=== PATIENT | male | born 1945 | race Caucasian/White ===

== ENCOUNTER → 2016-10-05 | Outpatient (CLI) | payer MEDICARE, OTHER ==
[2016-10-05 08:59] LABS: ANION GAP 13 (5-19); BLOOD UREA NITROGEN 16 mg/dL (7-20); CALCIUM 9.8 mg/dL (8.4-10.2); CARBON DIOXIDE 24 mmol/L (22-30); CHLORIDE 101 mmol/L (98-107); CREATININE RESULT 1.01 mg/dL (0.52-1.25); GLUCOSE 232 mg/dL (75-110); POTASSIUM 4.7 mmol/L (3.6-5.0)
== END ==
LOC: OD 07:19
PROVIDERS: ATTEND Internal Medicine Nephrology
DX: I12.9 Hypertensive chronic kidney disease with stage 1 through stage 4 chronic kidney disease, or unspecified chronic kidney disease (principal); N18.3 Chronic kidney disease, stage 3 (moderate); E87.5 Hyperkalemia; E11.9 Type 2 diabetes mellitus without complications
CPT/HCPCS: 36415; 80048

== ENCOUNTER 2016-11-07 12:08 | Emergency (ER) | payer OTHER, MEDICARE ==
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
[2016-11-07 14:00] VITALS: BP 145/79
== END 2016-11-07 13:50 | disposition home or self-care (01) ==
LOC: ER 12:08
DX: M54.2 Cervicalgia (principal); M25.511 Pain in right shoulder; M25.512 Pain in left shoulder; R51 Headache; V87.7XXA Person injured in collision between other specified motor vehicles (traffic), initial encounter
CPT/HCPCS: 70450; 72125; 99284

== ENCOUNTER 2016-11-24 13:58 | Emergency (ER) | payer OTHER, MEDICARE ==
[2016-11-24] MEDS ORDERED: IBUPROFEN 600 MG TABLET PO ONE (15:40)
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
[2016-11-24 16:59] VITALS: BP 132/64
== END 2016-11-24 16:59 | disposition home or self-care (01) ==
LOC: ER 13:58
DX: M25.561 Pain in right knee (principal); M25.571 Pain in right ankle and joints of right foot; V49.40XA Driver injured in collision with unspecified motor vehicles in traffic accident, initial encounter; I10 Essential (primary) hypertension; E10.9 Type 1 diabetes mellitus without complications; Z98.61 Coronary angioplasty status
CPT/HCPCS: 99283

== ENCOUNTER → 2016-12-30 | Outpatient (CLI) | payer OTHER, MEDICARE ==
[2016-12-30 08:32] LABS: ABSOLUTE EOSINOPHILS # (AUTO) 0.2 10^3/uL (0.0-0.6); ABSOLUTE MONOCYTES (AUTO) 0.5 10^3/uL (0.1-1.4); ABSOLUTE NEUT (AUTO) 4.8 10^3/uL (1.7-8.2); BASOPHILS % (AUTO) 0.3 % (0-2); EOSINOPHILS % (AUTO) 2.1 % (0-6); HEMATOCRIT 42.3 % (37.9-51.0); HEMOGLOBIN 14.5 g/dL (13.5-17.0); HGB HCT DIFFERENCE 1.2; LYMPHOCYTES % (AUTO) 26.8 % (13-45); MEAN CORPUSCULAR HEMOGLOBIN 30.8 pg (27.0-33.4); MEAN CORPUSCULAR HGB CONC 34.3 g/dL (32.0-36.0); MEAN CORPUSCULAR VOLUME 90 fl (80-97); MONOCYTES % (AUTO) 6.4 % (3-13); RED BLOOD COUNT 4.72 10^6/uL (4.35-5.55); RED CELL DISTRIBUTION WIDTH 12.6 % (11.5-14.0); SEGMENTED NEUTROPHILS % (AUTO) 64.4 % (42-78); WHITE BLOOD COUNT 7.5 10^3/uL (4.0-10.5)
[2016-12-30 08:53] LABS: ANION GAP 12 (5-19); BLOOD UREA NITROGEN 19 mg/dL (7-20); CALCIUM 10.3 mg/dL (8.4-10.2); CARBON DIOXIDE 25 mmol/L (22-30); CHLORIDE 97 mmol/L (98-107); CREATININE RESULT 1.21 mg/dL (0.52-1.25); POTASSIUM 5.1 mmol/L (3.6-5.0); SODIUM 134.3 mmol/L (137-145)
[2016-12-30 09:09] LABS: GLUCOSE 450 mg/dL (75-110)
--- NOTE | 2016-12-30 10:38 | EKG REPORT ---
SEVERITY:- ABNORMAL ECG - SINUS RHYTHM MULTIPLE VENTRICULAR PREMATURE COMPLEXES : Confirmed by: Consuelo Ron 30-Dec-2016 10:37:39
== END ==
LOC: OD 07:06
PROVIDERS: ATTEND Orthopaedic Surgery
DX: Z01.810 Encounter for preprocedural cardiovascular examination (principal); Z01.812 Encounter for preprocedural laboratory examination; Z01.818 Encounter for other preprocedural examination
CPT/HCPCS: 36415; 80048; 85025; 93005; 93010

== ENCOUNTER → 2017-01-07 | Outpatient (CLI) | payer MEDICARE, OTHER ==
[2017-01-07 12:07] LABS: ABSOLUTE EOSINOPHILS # (AUTO) 0.1 10^3/uL (0.0-0.6); ABSOLUTE LYMPHOCYTES (AUTO) 1.3 10^3/uL (0.5-4.7); ABSOLUTE MONOCYTES (AUTO) 0.4 10^3/uL (0.1-1.4); ABSOLUTE NEUT (AUTO) 6.1 10^3/uL (1.7-8.2); BASOPHILS % (AUTO) 0.3 % (0-2); EOSINOPHILS % (AUTO) 1.6 % (0-6); HEMATOCRIT 41.1 % (37.9-51.0); HEMOGLOBIN 13.9 g/dL (13.5-17.0); HGB HCT DIFFERENCE 0.6; LYMPHOCYTES % (AUTO) 16.7 % (13-45); MEAN CORPUSCULAR HEMOGLOBIN 30.2 pg (27.0-33.4); MEAN CORPUSCULAR HGB CONC 33.9 g/dL (32.0-36.0); MEAN CORPUSCULAR VOLUME 89 fl (80-97); MONOCYTES % (AUTO) 5.5 % (3-13); RED CELL DISTRIBUTION WIDTH 12.5 % (11.5-14.0); SEGMENTED NEUTROPHILS % (AUTO) 75.9 % (42-78)
[2017-01-07 12:30] LABS: ALANINE AMINOTRANSFERASE 39 U/L (21-72); ALKALINE PHOSPHATASE 72 U/L (38-126); ANION GAP 13 (5-19); ASPARTATE AMINO TRANSFERASE 26 U/L (17-59); BILIRUBIN,DIRECT 0.4 mg/dL (0.0-0.4); BILIRUBIN,TOTAL 0.7 mg/dL (0.2-1.3); BLOOD UREA NITROGEN 20 mg/dL (7-20); CALCIUM 10.4 mg/dL (8.4-10.2); CARBON DIOXIDE 23 mmol/L (22-30); CHLORIDE 99 mmol/L (98-107); CHOLESTEROL 229.36 mg/dL (0-200); CREATININE RESULT 1.15 mg/dL (0.52-1.25); Direct HDL 39 mg/dL (>40); GLUCOSE 369 mg/dL (75-110); TOTAL PROTEIN 7.1 g/dL (6.3-8.2)
[2017-01-07 12:41] LABS: TRIGLYCERIDES 557 mg/dL (<150)
[2017-01-07 12:42] LABS: DIRECT LDL 67 mg/dL (<100)
== END ==
LOC: OD 11:04
PROVIDERS: ATTEND Internal Medicine
DX: E11.22 Type 2 diabetes mellitus with diabetic chronic kidney disease (principal); I12.9 Hypertensive chronic kidney disease with stage 1 through stage 4 chronic kidney disease, or unspecified chronic kidney disease; N18.9 Chronic kidney disease, unspecified; I25.10 Atherosclerotic heart disease of native coronary artery without angina pectoris; E78.5 Hyperlipidemia, unspecified
CPT/HCPCS: 36415; 80053; 80061; 83036; 84443; 85025

== ENCOUNTER 2017-06-26 03:08 | Emergency (ER) | payer MEDICARE, OTHER ==
[2017-06-26 04:01] LABS: ABSOLUTE EOSINOPHILS # (AUTO) 0.2 10^3/uL (0.0-0.6); ABSOLUTE LYMPHOCYTES (AUTO) 1.7 10^3/uL (0.5-4.7); ABSOLUTE MONOCYTES (AUTO) 0.4 10^3/uL (0.1-1.4); BASOPHILS % (AUTO) 0.6 % (0-2); EOSINOPHILS % (AUTO) 3.4 % (0-6); HEMATOCRIT 38.3 % (37.9-51.0); HEMOGLOBIN 13.6 g/dL (13.5-17.0); HGB HCT DIFFERENCE 2.5; LYMPHOCYTES % (AUTO) 26.5 % (13-45); MEAN CORPUSCULAR HEMOGLOBIN 31.7 pg (27.0-33.4); MEAN CORPUSCULAR HGB CONC 35.6 g/dL (32.0-36.0); MEAN CORPUSCULAR VOLUME 89 fl (80-97); MONOCYTES % (AUTO) 6.1 % (3-13); RED CELL DISTRIBUTION WIDTH 13.3 % (11.5-14.0); SEGMENTED NEUTROPHILS % (AUTO) 63.4 % (42-78); WHITE BLOOD COUNT 6.4 10^3/uL (4.0-10.5)
[2017-06-26 04:28] LABS: ALANINE AMINOTRANSFERASE 47 U/L (21-72); ALBUMIN 3.4 g/dL (3.5-5.0); ALKALINE PHOSPHATASE 59 U/L (38-126); ANION GAP 12 (5-19); ASPARTATE AMINO TRANSFERASE 23 U/L (17-59); BILIRUBIN,DIRECT 0.4 mg/dL (0.0-0.4); BILIRUBIN,TOTAL 0.5 mg/dL (0.2-1.3); BLOOD UREA NITROGEN 15 mg/dL (7-20); CALCIUM 9.1 mg/dL (8.4-10.2); CARBON DIOXIDE 24 mmol/L (22-30); CHLORIDE 103 mmol/L (98-107); CREATININE RESULT 0.92 mg/dL (0.52-1.25); GLUCOSE 206 mg/dL (75-110); LIPASE 166.2 U/L (23-300); SODIUM 139.4 mmol/L (137-145); TOTAL PROTEIN 5.7 g/dL (6.3-8.2)
[2017-06-26] MEDS ORDERED: ACETAMINOPHEN 325 MG TABLET PO ONE (05:13)
[2017-06-26] MEDS ORDERED: LIDOCAINE 5% (700 MG) TRANSDERMAL ADH..PATCH TP ONE (05:13)
[2017-06-26] MEDS ORDERED: MORPHINE SULFATE IR 15 MG TABLET PO ONE (05:13)
--- NOTE | 2017-06-26 05:13 | RADIOLOGY REPORT (SQ) ---
EXAM DESCRIPTION: CT ABD/PELVIS WITH IV ONLY COMPLETED DATE/TIME: 06/26/2017 4:49 am REASON FOR STUDY: rlq pain COMPARISON: 03/18/2016. TECHNIQUE: CT scan of the abdomen and pelvis performed using helical scanning technique with dynamic intravenous contrast injection. No oral contrast. Images reviewed with lung, soft tissue, and bone windows. Reconstructed coronal and sagittal MPR images reviewed. Delayed images for evaluation of the urinary system also acquired. All images stored on PACS. All CT scanners at this facility use dose modulation, iterative reconstruction, and/or weight based d osing when appropriate to reduce radiation dose to as low as reasonably achievable (ALARA). [facility]: Dose Right [facility]: CareDose [facility]: Dose Right [facility]: Teradose 4D [facility]: [place] CONTRAST TYPE AND DOSE: contrast/concentration: Isovue 370.00 mg/ml; Total Contrast Delivered: 85.0 ml; Total Saline Delivered: 69.0 ml RENAL FUNCTION: Creatinine 0.9. RADIATION DOSE: CT Rad equipment meets quality standard of care and radiation dose reduction techniq ues were employed. CTDIvol: 8.0 - 11.4 mGy. DLP: 1102 mGy-cm.. LIMITATIONS: None. FINDINGS: LOWER CHEST: No significant findings. No nodules or infiltrates. LIVER: Normal size. No masses. No dilated ducts. SPLEEN: Normal size. 0.7 cm low-attenuation likely benign cyst. Stable. PANCREAS: No masses. No significant calcifications. No adjacent inflammation or peripancreatic fluid collections. Pancreatic duct not dilated. GALLBLADDER: No identified stones by CT criteria. No inflammatory changes to suggest cholecystitis. ADRENAL GLANDS: No significant masses or asymmetry. RIGHT KIDNEY AND URETER: 0.3 cm right distal ureteral stone at the S1 level with minimal right hydron ephrosis and minimal right hydroureter. Likely benign subcentimeter cyst. LEFT KIDNEY AND URETER: No solid masses. Nonobstructive 0.8 cm stone in the left renal pelvis. 2 a dditional left renal stones measure 0.4 cm each. No hydronephrosis or hydroureter. Small cortical scar. AORTA AND VESSELS: No aneurysm. No dissection. Renal arteries, SMA, celiac without stenosis. RETROPERITONEUM: No retroperitoneal adenopathy, hemorrhage or masses. BOWEL AND PERITONEAL CAVITY: No masses or inflammatory changes. No free fluid or peritoneal masses. APPENDIX: No evidence of appendicitis. PELVIS: No mass. No free fluid. Normal bladder. 5.8 cm diameter prostate. ABDOMINAL WALL: No masses. No hernias. BONES: No significant or acute findings. OTHER: No other significant finding. IMPRESSION: 0.3 cm right distal ureteral stone with low-grade obstruction. Uncomplicated left nephr olithiasis. TECHNICAL DOCUMENTATION: JOB ID: [id number] Quality ID # [id number]: Final reports with documentation of one or more dose reduction techniques (e.g., Au tomated exposure control, adjustment of the mA and/or kV according to patient size, use of iterative reconstruction technique) 2010 [employer]- All Rights Reserved
[2017-06-26] MEDS ORDERED: KETOROLAC TROMETHAMINE INJ/PF 30 MG/1 ML SDV IV ONE (05:14)
[2017-06-26] MEDS ORDERED: KETOROLAC TROMETHAMINE 60 MG/2 ML SDV IM ONE (05:15)
[2017-06-26] MEDS ORDERED: ONDANSETRON ODT 4 MG TAB (6 TAB/DSPK) PO PRN (05:19)
--- NOTE | 2017-06-26 05:20 | ER Document Report ---
ED General - General Chief Complaint: Abdominal Pain >50 Stated Complaint: ABDOMINAL PAIN Time Seen by Provider: 06/26/17 03:42 Notes: Patient is a 72-year-old male with a past medical history of prior ventral hernia repairs, coronary artery disease, who presents with acute onset of right lower quadrant abdominal pain. Patient describes it as an abrupt, stabbing, severe pain to the right lower quadrant of his abdomen that started just prior to arrival and woke him from sleep. Nothing improves or worsens the pain. He denies any history of similar symptoms in the past. He notes associated nausea but has not vomited. Denies any fever, diarrhea, melena or hematochezia. No dysuria or hematuria. TRAVEL OUTSIDE OF THE [place] IN LAST 30 DAYS: No - Related Data Allergies/Adverse Reactions: No Known Allergies Allergy (Verified 11/24/16 14:12) Past Medical History - General Information source: Patient - Social History Smoking Status: Never Smoker Frequency of alcohol use: None Drug Abuse: None Lives with: Spouse/Significant other Family History: Reviewed & Not Pertinent - Past Medical History Cardiac Medical History: Reports: Hx Heart Attack - x2?, Hx Hypercholesterolemia , Hx Hypertension - on meds Denies: Hx Coronary Artery Disease Pulmonary Medical History: Denies: Hx Asthma, Hx Bronchitis, Hx COPD, Hx Pneumonia, Hx Tuberculosis Neurological Medical History: Denies: Hx Cerebrovascular Accident, Hx Seizures Endocrine Medical History: Reports: Hx Diabetes Mellitus Type 1 Renal/ Medical History: Denies: Hx Peritoneal Dialysis GI Medical History: Reports: Hx Gastroesophageal Reflux Disease Musculoskeltal Medical History: Reports Hx Arthritis - Neck Past Surgical History: Reports: Hx Abdominal Surgery - hernia, Hx Cardiac Surgery - cath with stents. Denies: Hx Pacemaker - Immunizations Hx Diphtheria, Pertussis, Tetanus Vaccination: Yes Hx Pneumococcal Vaccination: 05/16/15 Review of Systems - Review of Systems Notes: Constitutional: Negative for fever. HENT: Negative for sore throat. Eyes: Negative for visual changes. Cardiovascular: Negative for chest pain. Respiratory: Negative for shortness of breath. Gastrointestinal: Positive for abdominal pain and nausea Genitourinary: Negative for dysuria. Musculoskeletal: Negative for back pain. Skin: Negative for rash. Neurological: Negative for headaches, weakness or numbness. 10 point ROS negative except as marked above and in HPI. Physical Exam - Vital signs Vitals: Temp Pulse Resp BP Pulse Ox 97.5 F 76 18 137/80 H 97 06/26/17 03:20 06/26/17 03:20 06/26/17 03:20 06/26/17 03:20 06/26/17 03:20 Interpretation: Normal Notes: PHYSICAL EXAMINATION: GENERAL: Well-appearing, well-nourished and in no acute distress. HEAD: Atraumatic, normocephalic. EYES: Pupils equal round and reactive to light, extraocular movements intact, sclera anicteric, conjunctiva are normal. ENT: nares patent, oropharynx clear without exudates. Moist mucous membranes. NECK: Normal range of motion, supple without lymphadenopathy LUNGS: Breath sounds clear to auscultation bilaterally and equal. No wheezes rales or rhonchi. HEART: Regular rate and rhythm without murmurs ABDOMEN: Soft, focal tenderness to the right lower quadrant otherwise no localized tenderness, normoactive bowel sounds. No guarding, no rebound. No masses appreciated. EXTREMITIES: Normal range of motion, no pitting or edema. No cyanosis. NEUROLOGICAL: No focal neurological deficits. Moves all extremities spontaneously and on command. PSYCH: Normal mood, normal affect. SKIN: Warm, Dry, normal turgor, no rashes or lesions noted. Course - Re-evaluation Re-evalutation: 06/26/17 05:17 Patient presents with acute onset of right lower quadrant abdominal pain with focal tenderness to palpation of the area but no rebound or guarding. The clinical history of an abrupt onset of abdominal pain is not consistent with an acute appendicitis. Patient has history of multiple prior ventral hernia repairs but the abrupt nature of onset of symptoms is inconsistent with an acute bowel obstruction. Moreover he continues to have bowel movements, pass flatus and has not had any vomiting. Mesenteric ischemia likewise seems unremarkable and patient does not have pain out of portion to examination. A CT scan of the abdomen pelvis was obtained to better clarify the possible etiology of patient's diagnosis particularly given his age and prior history of abdominal surgeries. A 3 mm nonobstructing ureteral calculus was noted which would clinically explain patient's symptoms. Urinalysis does not show findings consistent with an infected stone. Vitals have remained within normal limits. Patient will be discharged with recommendations to follow-up with urology, pain medications, and return precautions. They are in agreement with this plan and verbalized indications return to emergency department. - Vital Signs Vital signs: Temp Pulse Resp BP Pulse Ox 97.5 F 76 18 141/79 H 99 06/26/17 03:20 06/26/17 03:20 06/26/17 03:20 06/26/17 04:01 06/26/17 04:01 - Laboratory Result Diagrams: 06/26/17 03:47 06/26/17 03:47 Laboratory results interpreted by me: 06/26/17 06/26/17 06/26/17 03:47 03:47 05:28 RBC 4.30 L Glucose 206 H Total Protein 5.7 L Albumin 3.4 L Urine Glucose (UA) >=500 H Urine Blood LARGE H - Diagnostic Test Radiology reviewed: Reports reviewed Discharge - Discharge Clinical Impression: Urolithiasis Qualifiers: Urinary calculus location: ureter Qualified Code(s): N20.1 - Calculus of ureter Condition: Good Disposition: HOME, SELF-CARE Additional Instructions: Your symptoms should improve over the course of the next one week. If you continue to have pain for greater than one week or your pain is not controlled with the pain medications that you have been sent home with you need to return to the emergency department. Please also return if you develop fever, persistent vomiting, or any other symptoms that are concerning to you. For your pain: Take ibuprofen 600 mg and acetaminophen 1000 mg every 6 hours together as needed for pain. If this does not control your pain you may take 15 mg of oral morphine every 4 hours as needed. Please be very careful about using the oral morphine and only use this for severe pain. Your also been sent home with a medication called Flomax to help pass the stone. You've been given Zofran to assist with nausea. Please followup closely with your primary care provider. Prescriptions: Morphine Sulfate [Morphine Ir 15 mg Tablet] 15 mg PO Q4HP PRN #12 tablet PRN Reason: Tamsulosin HCl [Flomax 0.4 mg Cap.sr] 0.4 mg PO DAILY #7 cap.sr.24h Referrals: CHAU PULIDO MD [Primary Care Provider] - Follow up as needed PAUL MAI II, MD [[facility]] - Follow up as needed
[2017-06-26 06:07] LABS: APPEARANCE,URINE CLEAR; BILIRUBIN,URINE NEGATIVE (NEGATIVE); GLUCOSE, URINE >=500 mg/dL (NEGATIVE); KETONES,URINE NEGATIVE (NEGATIVE); LEUKOCYTE ESTERASE,URINE NEGATIVE (NEGATIVE); NITRITE,URINE NEGATIVE (NEGATIVE); PROTEIN,URINE NEGATIVE (NEGATIVE); URINE SPECIFIC GRAVITY 1.033; UROBILINOGEN,URINE NEGATIVE mg/dL (<2.0)
[2017-06-26 06:27] VITALS: BP 124/76
== END 2017-06-26 06:29 | disposition home or self-care (01) ==
LOC: ER 03:08
DX: N13.2 Hydronephrosis with renal and ureteral calculous obstruction (principal); R10.31 Right lower quadrant pain; R11.0 Nausea; I10 Essential (primary) hypertension; E10.9 Type 1 diabetes mellitus without complications; Z98.890 Other specified postprocedural states
CPT/HCPCS: 99284; 96372; 36415; 83690; 85025; 80053; 81001; 74177; A9270 ×2; J1885

== ENCOUNTER → 2017-10-15 | Outpatient (CLI) | payer MEDICARE, OTHER ==
[2017-10-15 09:12] LABS: ABSOLUTE EOSINOPHILS # (AUTO) 0.2 10^3/uL (0.0-0.6); ABSOLUTE MONOCYTES (AUTO) 0.4 10^3/uL (0.1-1.4); ABSOLUTE NEUT (AUTO) 3.5 10^3/uL (1.7-8.2); BASOPHILS % (AUTO) 0.6 % (0-2); EOSINOPHILS % (AUTO) 3.9 % (0-6); HEMATOCRIT 41.2 % (37.9-51.0); HEMOGLOBIN 14.3 g/dL (13.5-17.0); LYMPHOCYTES % (AUTO) 32.3 % (13-45); MEAN CORPUSCULAR HEMOGLOBIN 30.4 pg (27.0-33.4); MEAN CORPUSCULAR HGB CONC 34.6 g/dL (32.0-36.0); MEAN CORPUSCULAR VOLUME 88 fl (80-97); MONOCYTES % (AUTO) 6.5 % (3-13); PLATELET COUNT 190 10^3/uL (150-450); RED CELL DISTRIBUTION WIDTH 13.2 % (11.5-14.0); SEGMENTED NEUTROPHILS % (AUTO) 56.7 % (42-78); TOTAL CELLS COUNTED % (AUTO) 100 %; WHITE BLOOD COUNT 6.2 10^3/uL (4.0-10.5)
[2017-10-15 09:17] LABS: HEMATOCRIT 41.2 % (37.9-51.0); HEMOGLOBIN 14.3 g/dL (13.5-17.0); MEAN CORPUSCULAR HEMOGLOBIN 30.4 pg (27.0-33.4); MEAN CORPUSCULAR HGB CONC 34.6 g/dL (32.0-36.0); MEAN CORPUSCULAR VOLUME 88 fl (80-97); PLATELET COUNT 190 10^3/uL (150-450); RED CELL DISTRIBUTION WIDTH 13.2 % (11.5-14.0); WHITE BLOOD COUNT 6.2 10^3/uL (4.0-10.5)
[2017-10-15 09:30] LABS: APPEARANCE,URINE CLEAR; BILIRUBIN,URINE NEGATIVE (NEGATIVE); COLOR,URINE YELLOW; GLUCOSE, URINE >=500 mg/dL (NEGATIVE); KETONES,URINE NEGATIVE (NEGATIVE); LEUKOCYTE ESTERASE,URINE NEGATIVE (NEGATIVE); NITRITE,URINE NEGATIVE (NEGATIVE); PROTEIN,URINE NEGATIVE (NEGATIVE); UROBILINOGEN,URINE NEGATIVE mg/dL (<2.0)
[2017-10-15 09:33] LABS: ALANINE AMINOTRANSFERASE 39 U/L (21-72); ALKALINE PHOSPHATASE 50 U/L (38-126); ANION GAP 10 (5-19); ASPARTATE AMINO TRANSFERASE 25 U/L (17-59); BILIRUBIN,DIRECT 0.4 mg/dL (0.0-0.4); BILIRUBIN,TOTAL 0.4 mg/dL (0.2-1.3); BLOOD UREA NITROGEN 15 mg/dL (7-20); CALCIUM 10.1 mg/dL (8.4-10.2); CARBON DIOXIDE 26 mmol/L (22-30); CHLORIDE 105 mmol/L (98-107); CHOLESTEROL 281.53 mg/dL (0-200); GLUCOSE 148 mg/dL (75-110); POTASSIUM 4.4 mmol/L (3.6-5.0); SODIUM 141.2 mmol/L (137-145); TOTAL PROTEIN 6.6 g/dL (6.3-8.2)
[2017-10-15 09:43] LABS: DIRECT LDL 67 mg/dL (<100)
[2017-10-15 09:47] LABS: TRIGLYCERIDES 962 mg/dL (<150)
[2017-10-15 09:55] LABS: ANION GAP 10 (5-19); BLOOD UREA NITROGEN 15 mg/dL (7-20); CALCIUM 10.1 mg/dL (8.4-10.2); CARBON DIOXIDE 26 mmol/L (22-30); CHLORIDE 105 mmol/L (98-107); GLUCOSE 148 mg/dL (75-110); POTASSIUM 4.4 mmol/L (3.6-5.0); SODIUM 141.2 mmol/L (137-145)
[2017-10-16 15:37] LABS: CREATININE URINE 121.3 mg/dL (Not Estab.); MICROALBUMIN URINE 22.2 ug/mL (Not Estab.)
== END ==
LOC: OD 08:13
PROVIDERS: ATTEND Internal Medicine Nephrology
DX: E11.22 Type 2 diabetes mellitus with diabetic chronic kidney disease (principal); I12.9 Hypertensive chronic kidney disease with stage 1 through stage 4 chronic kidney disease, or unspecified chronic kidney disease; N18.9 Chronic kidney disease, unspecified; I25.10 Atherosclerotic heart disease of native coronary artery without angina pectoris; E78.5 Hyperlipidemia, unspecified
CPT/HCPCS: 36415; 80048; 80053; 80061; 81001; 82043; 82570; 83036; 84443; 85025; 85027

== ENCOUNTER 2017-12-05 11:19 | Inpatient (IN) | payer MEDICARE, OTHER ==
[2017-12-05] MEDS ORDERED: OXYCODONE-ACETAMINOPHEN 5-325 MG TABLET PO ONE (12:16)
[2017-12-05] MEDS ORDERED: ONDANSETRON 4 MG TAB.RAPDIS PO ONE (12:16)
--- NOTE | 2017-12-05 12:18 | ER Document Report ---
ED Medical Screen (RME) - General Chief Complaint: Flank Pain Stated Complaint: ABDOMINAL PAIN Time Seen by Provider: 12/05/17 12:06 Notes: 72-year-old male patient reports sudden onset of 11 AM this morning of left flank pain which later became radiating to the left lower quadrant. This is associated with nausea and vomiting. He is noted that he was unable to sit still and was pacing the floor. No past history of kidney stones. Review of records shows he was here on 06/26/2017 with a right distal ureteral stone and left nephro lithiasis. I have greeted and performed a rapid initial assessment of this patient. A comprehensive ED assessment and evaluation of the patient, analysis of test results and completion of the medical decision making process will be conducted by additional ED providers. TRAVEL OUTSIDE OF THE [place] IN LAST 30 DAYS: No - Related Data Allergies/Adverse Reactions: No Known Allergies Allergy (Verified 12/05/17 11:22) Home Medications: asa. metformin. plavis. lantus Past Medical History - Social History Frequency of alcohol use: Social Drug Abuse: None - Past Medical History Cardiac Medical History: Reports: Hx Heart Attack - x2?, Hx Hypercholesterolemia , Hx Hypertension - on meds Denies: Hx Coronary Artery Disease Pulmonary Medical History: Denies: Hx Asthma, Hx Bronchitis, Hx COPD, Hx Pneumonia, Hx Tuberculosis Neurological Medical History: Denies: Hx Cerebrovascular Accident, Hx Seizures Endocrine Medical History: Reports: Hx Diabetes Mellitus Type 1 Renal/ Medical History: Denies: Hx Peritoneal Dialysis GI Medical History: Reports: Hx Gastroesophageal Reflux Disease Musculoskeltal Medical History: Reports Hx Arthritis - Neck Past Surgical History: Reports: Hx Abdominal Surgery - hernia, Hx Cardiac Surgery - cath with stents. Denies: Hx Pacemaker - Immunizations Hx Diphtheria, Pertussis, Tetanus Vaccination: Yes Physical Exam - Vital signs Vitals: Temp Pulse Resp BP Pulse Ox 97.5 F 92 18 186/95 H 96 12/05/17 11:12/05/17 11:12/05/17 11:12/05/17 11:12/05/17 11:25 Course - Vital Signs Vital signs: Temp Pulse Resp BP Pulse Ox 97.5 F 92 18 186/95 H 96 12/05/17 11:12/05/17 11:12/05/17 11:12/05/17 11:12/05/17 11:25
--- NOTE | 2017-12-05 12:52 | ER Document Report ---
ED General - General Chief Complaint: Flank Pain Stated Complaint: ABDOMINAL PAIN Time Seen by Provider: 12/05/17 12:06 Notes: Patient is a 72-year-old male who presents emergency department the chief complaint of left flank pain with associated decreased urinary output without hematuria, pyuria. Patient states that this started this morning. Past medical history 6 significant for hypertension, diabetes, previous coronary artery disease with STEMI. Review of the chart shows that he is on Plavix. Patient is a poor historian. Review the chart does show that he has a history of kidney stones. He denies any fevers or chills, nausea or vomiting. History significant for multiple recurrent abdominal hernia repairs. TRAVEL OUTSIDE OF THE [place] IN LAST 30 DAYS: No - Related Data Allergies/Adverse Reactions: No Known Allergies Allergy (Verified 12/05/17 11:22) Home Medications: asa. metformin. plavis. lantus Past Medical History - Social History Smoking Status: Unknown if Ever Smoked Frequency of alcohol use: Social Drug Abuse: None Family History: Reviewed & Not Pertinent Patient has suicidal ideation: No Patient has homicidal ideation: No - Past Medical History Cardiac Medical History: Reports: Hx Heart Attack - x2?, Hx Hypercholesterolemia , Hx Hypertension - on meds Denies: Hx Coronary Artery Disease Pulmonary Medical History: Denies: Hx Asthma, Hx Bronchitis, Hx COPD, Hx Pneumonia, Hx Tuberculosis Neurological Medical History: Denies: Hx Cerebrovascular Accident, Hx Seizures Endocrine Medical History: Reports: Hx Diabetes Mellitus Type 1 Renal/ Medical History: Denies: Hx Peritoneal Dialysis GI Medical History: Reports: Hx Gastroesophageal Reflux Disease Musculoskeltal Medical History: Reports Hx Arthritis - Neck Past Surgical History: Reports: Hx Abdominal Surgery - hernia, Hx Cardiac Surgery - cath with stents. Denies: Hx Pacemaker - Immunizations Hx Diphtheria, Pertussis, Tetanus Vaccination: Yes Hx Pneumococcal Vaccination: 05/16/15 Review of Systems - Review of Systems Constitutional: No symptoms reported Cardiovascular: No symptoms reported Respiratory: No symptoms reported Gastrointestinal: No symptoms reported Genitourinary: See HPI Male Genitourinary: See HPI Musculoskeletal: No symptoms reported -: Yes All other systems reviewed and negative Physical Exam - Vital signs Vitals: Temp Pulse Resp BP Pulse Ox 97.5 F 92 18 186/95 H 96 12/05/17 11:25 12/05/17 11:25 12/05/17 11:25 12/05/17 11:25 12/05/17 11:25 - Notes Notes: PHYSICAL EXAM GENERAL: Alert, interacts well. HEAD: Normocephalic, atraumatic. EYES: Pupils equal, round, and reactive to light. Extraocular movements intact. ENT: Oral mucosa moist, tongue midline. NECK: Full range of motion. Supple. Trachea midline. LUNGS: Clear to auscultation bilaterally, no wheezes, rales, or rhonchi. No respiratory distress. HEART: Regular rate and rhythm. No murmurs, gallops, or rubs. ABDOMEN: Soft, mildly distended, nontender. No guarding, rebound, or rigidity.. Bowel sounds present in all 4 quadrants. Back: Negative for CVA tenderness bilaterally. No superficial muscle tenderness to palpation EXTREMITIES: Moves all 4 extremities spontaneously. No edema, radial and dorsalis pedis pulses 2/4 bilaterally. No cyanosis. NEUROLOGICAL: Alert and oriented x4. Normal speech. PSYCH: Normal affect, normal mood. SKIN: Warm, dry, normal turgor. No rashes or lesions noted. Course - Re-evaluation Re-evalutation: 12/05/17 16:53 Patient is a 72-year-old male who is hemodynamically stable, no acute distress and afebrile. CBC shows mild leukocytosis. Patient does have new ENMA with a creatinine of 1.4. Patient's urinalysis without significant evidence for pyuria. CT abdomen pelvis reveals a 7 mm stone in the left ureter with associated moderate hydronephrosis. I reviewed the case with urologist scientific publications editor he recommends patient be kept n.p.o. and admitted to the hospitalist service for possible OR today or tomorrow for stone removal. Patient and his the bedside are agreeable with plan. Patient has been accepted to hospitalist service . - Vital Signs Vital signs: Temp Pulse Resp BP Pulse Ox 97.3 F 80 18 139/66 H 99 12/05/17 17:24 12/05/17 17:24 12/05/17 17:24 12/05/17 17:24 12/05/17 17:24 - Laboratory Result Diagrams: 12/05/17 14:09 12/05/17 14:09 Laboratory results interpreted by me: 12/05/17 12/05/17 12/05/17 14:09 14:09 15:10 WBC 13.3 H Seg Neutrophils % 81.7 H Lymphocytes % 12.2 L Absolute Neutrophils 10.9 H Sodium 146.8 H BUN 23 H Creatinine 1.47 H Est GFR ( Amer) 57 L Est GFR (Non-Af Amer) 47 L Glucose 172 H Calcium 10.5 H Urine Protein 30 H Urine Blood MODERATE H - Diagnostic Test Radiology reviewed: Image reviewed, Reports reviewed Discharge - Discharge Clinical Impression: Ureteral calculus Condition: Stable Disposition: ADMITTED INPATIENT Admitting Provider: Hospitalist Unit Admitted: Medical Floor
[2017-12-05] MEDS ORDERED: ONDANSETRON HCL INJ/PF 4 MG/2 ML SDV IV ONE (14:20)
[2017-12-05] MEDS ORDERED: KETOROLAC TROMETHAMINE INJ/PF 30 MG/1 ML SDV IV ONE (14:20)
[2017-12-05 14:33] LABS: ABSOLUTE BASOPHILS # (AUTO) 0.1 10^3/uL (0.0-0.2); ABSOLUTE EOSINOPHILS # (AUTO) 0.2 10^3/uL (0.0-0.6); ABSOLUTE LYMPHOCYTES (AUTO) 1.6 10^3/uL (0.5-4.7); ABSOLUTE MONOCYTES (AUTO) 0.5 10^3/uL (0.1-1.4); ABSOLUTE NEUT (AUTO) 10.9 10^3/uL (1.7-8.2); BASOPHILS % (AUTO) 0.8 % (0-2); EOSINOPHILS % (AUTO) 1.2 % (0-6); HEMATOCRIT 44.4 % (37.9-51.0); HEMOGLOBIN 15.2 g/dL (13.5-17.0); LYMPHOCYTES % (AUTO) 12.2 % (13-45); MEAN CORPUSCULAR HEMOGLOBIN 30.8 pg (27.0-33.4); MEAN CORPUSCULAR HGB CONC 34.2 g/dL (32.0-36.0); MEAN CORPUSCULAR VOLUME 90 fl (80-97); MONOCYTES % (AUTO) 4.1 % (3-13); PLATELET COUNT 241 10^3/uL (150-450); RED BLOOD COUNT 4.94 10^6/uL (4.35-5.55); RED CELL DISTRIBUTION WIDTH 13.4 % (11.5-14.0); SEGMENTED NEUTROPHILS % (AUTO) 81.7 % (42-78); TOTAL CELLS COUNTED % (AUTO) 100 %; WHITE BLOOD COUNT 13.3 10^3/uL (4.0-10.5)
[2017-12-05 14:47] LABS: ANION GAP 19 (5-19); BLOOD UREA NITROGEN 23 mg/dL (7-20); CALCIUM 10.5 mg/dL (8.4-10.2); CARBON DIOXIDE 24 mmol/L (22-30); CHLORIDE 104 mmol/L (98-107); GLUCOSE 172 mg/dL (75-110); POTASSIUM 4.7 mmol/L (3.6-5.0); SODIUM 146.8 mmol/L (137-145)
[2017-12-05 15:24] LABS: APPEARANCE,URINE SLIGHTLY-CLOUDY; BILIRUBIN,URINE NEGATIVE (NEGATIVE); CALCIUM OXALATE CRYSTALS,URINE FEW /HPF; COLOR,URINE YELLOW; GLUCOSE, URINE NEGATIVE (NEGATIVE); KETONES,URINE NEGATIVE (NEGATIVE); LEUKOCYTE ESTERASE,URINE NEGATIVE (NEGATIVE); NITRITE,URINE NEGATIVE (NEGATIVE); PROTEIN,URINE 30 mg/dL (NEGATIVE); URINE SPECIFIC GRAVITY 1.025; UROBILINOGEN,URINE NEGATIVE mg/dL (<2.0)
--- NOTE | 2017-12-05 16:17 | RADIOLOGY REPORT (SQ) ---
EXAM DESCRIPTION: CT LTD RENAL STONE PROTOCOL ON COMPLETED DATE/TIME: 12/05/2017 4:07 pm REASON FOR STUDY: flank pain, h/o kidney stones COMPARISON: None. TECHNIQUE: CT scan of the abdomen and pelvis performed without intravenous or oral contrast. Images reviewed with lung, soft tissue, and bone windows. Reconstructed coronal and sagittal MPR images revi ewed. All images stored on PACS. All CT scanners at this facility use dose modulation, iterative reconstruction, and/or weight based d osing when appropriate to reduce radiation dose to as low as reasonably achievable (ALARA). [facility]: Dose Right [facility]: CareDose [facility]: Dose Right [facility]: Teradose 4D [facility]: Xockets RADIATION DOSE: mGy. LIMITATIONS: None. FINDINGS: LOWER CHEST: Motion artifact and subsegmental atelectasis. Cardiomegaly. NON-CONTRASTED LIVER, SPLEEN, ADRENALS: Fatty liver. Normal spleen. No adrenal mass. PANCREAS: No masses. No peripancreatic inflammatory changes. GALLBLADDER: No identified stones by CT criteria. No inflammatory changes to suggest cholecystitis. RIGHT KIDNEY AND URETER: Cysts. No stones or urinary obstruction. LEFT KIDNEY AND URETER: Mild -moderate hydronephrosis due to a proximal ureteral stone which lies jus t distal to the pelvic-ureteral junction. This measures 6 mm in transverse dimension by 7 mm cranioc audal. Hounsfield units appear to be greater than 600. Mild additional nonobstructing mid and lower pole calculi. AORTA AND RETROPERITONEUM: No aneurysm. No retroperitoneal masses or adenopathy. BOWEL AND PERITONEAL CAVITY: No obvious masses or inflammatory changes. No free fluid. APPENDIX: Normal. PELVIS, BLADDER, AND ABDOMINAL WALL:Prostate enlarged. Bladder unremarkable. No pelvic mass or free fluid. No abdominal wall mass or bowel containing hernia. BONES: No significant findings. OTHER: No other significant finding. IMPRESSION: 1. Left obstructive uropathy, mild to moderate hydronephrosis due to a stone just beyond the UPJ. This measures almost 6 mm transverse by 7 mm craniocaudal. TECHNICAL DOCUMENTATION: JOB ID: [id number] Quality ID # [id number]: Final reports with documentation of one or more dose reduction techniques (e.g., Au tomated exposure control, adjustment of the mA and/or kV according to patient size, use of iterative reconstruction technique) 2010 [employer]- All Rights Reserved Reading location - [facility]workstation name: [email or web address]
[2017-12-05] MEDS ORDERED: GLUCAGON,HUMAN RECOMB 1 MG INJ SUBCUT PRN (17:26)
[2017-12-05] MEDS ORDERED: ONDANSETRON HCL INJ/PF 4 MG/2 ML SDV IV PRN (17:26)
[2017-12-05] MEDS ORDERED: DEXTROSE 50%-WATER 25 GM/50 ML DISP.SYRIN IV PRN ×4 (17:26→17:50)
[2017-12-05] MEDS ORDERED: DEXTROSE 40% GEL 15 GM TUBE PO PRN ×4 (17:26→17:50)
[2017-12-05] MEDS ORDERED: ACETAMINOPHEN 325 MG TABLET PO PRN (17:34)
--- NOTE | 2017-12-05 17:49 | PDOC H&P ---
History of Present Illness Admission Date/PCP: 12/05/17 17:20 Patient complains of: left sided flank pain History of Present Illness: CHAU ANDERSON is a 72 year old male with CAD s/p 8 stents, DM, bilateral carpel tunnel syndrome, and arthritis who presented with acute onset left sided flank pain that started this AM. Described the pain as 10/10 pain, sharp, and constant. Associated symptoms include nausea and 2 episodes of non-bilious, non- bloody vomiting. Denies fevers, chills, CP, SOB, hematuria. States that he passed a kidney stone a few months ago. In ED, labs were significant for WBC 13.3 with left shift, Cr 1.4, and calcium of 10.5. UA showed moderate blood with [address] showed left obstructing uropathy with 7mm stone. Urology was contacted and will operatively remove stone either later tonight or tomorrow AM. Will keep NPO in anticipation for surgical procedure. Admit to hospitalist service. Past Medical History Cardiac Medical History: Reports: Myocardial Infarction - x2?, Hyperlipidema, Hypertension - on meds Denies: Coronary Artery Disease Pulmonary Medical History: Denies: Asthma, Bronchitis, Chronic Obstructive Pulmonary Disease (COPD), Pneumonia, Tuberculosis Neurological Medical History: Denies: Seizures Endocrine Medical History: Reports: Diabetes Mellitus Type 1 GI Medical History: Reports: Gastroesophageal Reflux Disease Musculoskeltal Medical History: Reports: Arthritis - Neck Hematology: Denies: Anemia Past Surgical History Past Surgical History: Denies: Pacemaker Social History Information Source: Patient Lives with: Spouse/Significant other Smoking Status: Never Smoker Frequency of Alcohol Use: Occasional Hx Recreational Drug Use: No Hx Prescription Drug Abuse: No Family History Family History: Reviewed & Not Pertinent Parental Family History Reviewed: No Children Family History Reviewed: NA Sibling(s) Family History Reviewed.: NA Medication/Allergy Home Medications: Aspirin [Aspirin EC] 81 mg PO DAILY PRN 01/23/14 Atorvastatin Calcium [Lipitor 80 mg Tablet] 80 mg PO QHS 01/23/14 Clopidogrel Bisulfate [Plavix 75 mg Tablet] 75 mg PO DAILY 01/23/14 Esomeprazole Magnesium [Nexium] 40 mg PO DAILY 01/23/14 Fenofibrate 145 mg PO DAILY 01/23/14 Fluticasone Propionate [Flonase Nasal Hyder 50 Mcg/Hyder 16 gm] 2 sprays NASL Q12 01/23/14 Gabapentin [Neurontin 100 mg Capsule] 300 mg PO TID 01/23/14 Insulin Aspart [Novolog Flexpen] 10 unit SUBCUT QHS 01/23/14 Lisinopril [Prinivil 2.5 mg Tablet] 10 mg PO DAILY 01/23/14 Metformin HCl [Glucophage] 1,000 mg PO BID 01/23/14 Metoprolol Succinate 50 mg PO DAILY 01/23/14 Tramadol HCl 50 mg PO PRN 01/23/14 Insulin Glargine,Hum.rec.anlog [Lantus Insulin 100 Unit/1 ml 10 ml] 66 units SQ QHS 09/13/15 Esomeprazole Magnesium [Nexium 24Hr] 20 mg PO DAILY #30 tablet.dr 03/18/16 Sucralfate [Carafate 1 gm Tablet] 1 gm PO ACHS #120 tablet 03/18/16 Hydrocodone/Acetaminophen [[place] 5-325 mg Tablet] 1 tab PO Q6 #10 tablet Ibuprofen 600 mg PO Q8HP PRN #14 tablet 11/24/16 Morphine Sulfate [Morphine Ir 15 mg Tablet] 15 mg PO Q4HP PRN #12 tablet Tamsulosin HCl [Flomax 0.4 mg Cap.sr] 0.4 mg PO DAILY #7 cap.sr.24h 06/26/17 Allergies/Adverse Reactions: No Known Allergies Allergy (Verified 12/05/17 11:22) Review of Systems All systems: reviewed and no additional remarkable complaints except as stated Physical Exam Vital Signs: Temp Pulse Resp BP Pulse Ox 97.3 F 80 18 139/66 H 99 12/05/17 17:24 12/05/17 17:24 12/05/17 17:24 12/05/17 17:24 12/05/17 17:24 General appearance: PRESENT: no acute distress, cooperative, well-developed, well-nourished Head exam: PRESENT: atraumatic, normocephalic Mouth exam: PRESENT: moist Respiratory exam: PRESENT: clear to auscultation noelle, unlabored Cardiovascular exam: PRESENT: +S1, +S2 GI/Abdominal exam: PRESENT: soft, tenderness - left flank Extremities exam: PRESENT: full ROM Musculoskeletal exam: PRESENT: ambulatory Neurological exam: PRESENT: alert, awake, CN II-XII grossly intact Psychiatric exam: PRESENT: appropriate affect Skin exam: PRESENT: dry, warm Results Laboratory Results: Labs- All tests 24 hr 12/05/17 12/05/17 12/05/17 14:09 14:09 15:10 WBC 13.3 H RBC 4.94 Hgb 15.2 Hct 44.4 MCV 90 MCH 30.8 MCHC 34.2 RDW 13.4 Plt Count 241 Seg Neutrophils % 81.7 H Lymphocytes % 12.2 L Monocytes % 4.1 Eosinophils % 1.2 Basophils % 0.8 Absolute Neutrophils 10.9 H Absolute Lymphocytes 1.6 Absolute Monocytes 0.5 Absolute Eosinophils 0.2 Absolute Basophils 0.1 Sodium 146.8 H Potassium 4.7 Chloride 104 Carbon Dioxide 24 Anion Gap 19 BUN 23 H Creatinine 1.47 H Est GFR ( Amer) 57 L Est GFR (Non-Af Amer) 47 L Glucose 172 H Calcium 10.5 H Urine Color YELLOW Urine Appearance SLIGHTLY-CLOUDY Urine pH 5.0 Ur Specific Dillon 1.025 Urine Protein 30 H Urine Glucose (UA) NEGATIVE Urine Ketones NEGATIVE Urine Blood MODERATE H Urine Nitrite NEGATIVE Urine Bilirubin NEGATIVE Urine Urobilinogen NEGATIVE Ur Leukocyte Esterase NEGATIVE Urine WBC (Auto) 2 Urine RBC (Auto) 50 Squamous Epi Cells Auto <1 Calcium Oxalate Cr Auto FEW Urine Mucus (Auto) OCC Urine Ascorbic Acid NEGATIVE Impressions: Limited or Localized CT 12/05/17 15:54 IMPRESSION: 1. Left obstructive uropathy, mild to moderate hydronephrosis due to a stone just beyond the UPJ. This measures almost 6 mm transverse by 7 mm craniocaudal. Assessment & Plan - Diagnosis (1) Ureteral calculus Is this a current diagnosis for this admission?: Yes Plan: Obstructing calculi. LIkely calcium oxalate stone given elevated calcium leves and evidence of "few" calcium oxalate crystals seen on UA - COnsulted Dr. Bond, urology for surgical removal of stone - Will keep NPO in anticipation of procedure - For pain control: ordered PO tylenol for mild pain and IV Morphine for severe pain - IV Zofran ordered PRN - Will not start antibiotisc at this time for leukocytosis - Anticipate discharge on 12/06 (2) ENMA (acute kidney injury) Plan: Cr 1.47 at admission likely due to obstructing stone - Repeat labs in AM (3) Elevated blood pressure reading Is this a current diagnosis for this admission?: Yes Plan: Has history of HTN however elevated readings likely due to pain - Will re-start home BP medications - Control pain per above (4) Diabetes Qualifiers: Diabetes mellitus type: type 2 Diabetes mellitus superintendent terminal insulin use: with assisted use Diabetes mellitus complication status: without complication Qualified Code(s): E11.9 - Type 2 diabetes mellitus without complications; Z79.4 - intermediate frame tender (current) use of insulin; Z79.4 - FPC ( current) use of insulin; Z79.4 - intermediate frame tender (current) use of insulin; Z79.4 - intermediate frame tender (current) use of insulin Is this a current diagnosis for this admission?: Yes Plan: Insulin dependent, last A1c was 9.4% - Will hold home lantus - Start low dose sliding scale while patient is NPO - Time Time Spent: 50 to 70 Minutes Anticipated discharge: Home Within: within 24 hours - Inpatient Certification Medical Necessity: Need Close Monitoring Due to Risk of Patient Decompensation, Need for Pain Control
[2017-12-05] MEDS ORDERED: GLUCAGON,HUMAN RECOMB 1 MG INJ IM PRN (17:50)
[2017-12-05] MEDS ORDERED: INSULIN LISPRO 100 UNIT/ML 3 ML VIAL SUBCUT PRN (17:50)
--- NOTE | 2017-12-05 19:41 | PDOC CONSULTATION ---
Consultation Consult Date: 12/05/17 Attending physician:: ASA ODEN History of Present Illness Admission Date/PCP: 12/05/17 17:20 Patient complains of: LEFT FLANK PAIN, NAUSEA AND VOMITING, NO CHILLS OR FEVER, CT WAS DONE AND SHOWED LEFT PROXIMAL URETERAL STONE WITH HYDRO ON THE SAME SIDE. CR IS ELEVATED AND WBC IS HIGH, HE IS ON PLAVIX AND ASPIRIN, ADMIT FOR ANTIBIOTICS AND WILL GET HIM READY FOR OR PER HIS LITERACY EDUCATION PROFESSOR History of Present Illness: CHAU ANDERSON is a 72 year old male Past Medical History Cardiac Medical History: Reports: Myocardial Infarction - x2?, Hyperlipidema, Hypertension - on meds Denies: Coronary Artery Disease Pulmonary Medical History: Denies: Asthma, Bronchitis, Chronic Obstructive Pulmonary Disease (COPD), Pneumonia, Tuberculosis Neurological Medical History: Denies: Seizures Endocrine Medical History: Reports: Diabetes Mellitus Type 1 GI Medical History: Reports: Gastroesophageal Reflux Disease Musculoskeltal Medical History: Reports: Arthritis - Neck Hematology: Denies: Anemia Past Surgical History Past Surgical History: Denies: Pacemaker Social History Lives with: Spouse/Significant other Smoking Status: Never Smoker Frequency of Alcohol Use: Occasional Hx Recreational Drug Use: No Hx Prescription Drug Abuse: No Family History Family History: Reviewed & Not Pertinent Parental Family History Reviewed: No Children Family History Reviewed: No Sibling(s) Family History Reviewed.: No Medication/Allergy Home Medications: Aspirin [Aspirin EC] 81 mg PO DAILY PRN 01/23/14 Atorvastatin Calcium [Lipitor 80 mg Tablet] 80 mg PO QHS 01/23/14 Clopidogrel Bisulfate [Plavix 75 mg Tablet] 75 mg PO DAILY 01/23/14 Esomeprazole Magnesium [Nexium] 40 mg PO DAILY 01/23/14 Fenofibrate 145 mg PO DAILY 01/23/14 Fluticasone Propionate [Flonase Nasal [place] 50 Mcg/[place] 16 gm] 2 sprays NASL Q12 01/23/14 Gabapentin [Neurontin 100 mg Capsule] 300 mg PO TID 01/23/14 Insulin Aspart [Novolog Flexpen] 10 unit SUBCUT QHS 01/23/14 Lisinopril [Prinivil 2.5 mg Tablet] 10 mg PO DAILY 01/23/14 Metformin HCl [Glucophage] 1,000 mg PO BID 01/23/14 Metoprolol Succinate 50 mg PO DAILY 01/23/14 Tramadol HCl 50 mg PO PRN 01/23/14 Insulin Glargine,Hum.rec.anlog [Lantus Insulin 100 Unit/1 ml 10 ml] 66 units SQ QHS 09/13/15 Esomeprazole Magnesium [Nexium 24Hr] 20 mg PO DAILY #30 tablet. 03/18/16 Sucralfate [Carafate 1 gm Tablet] 1 gm PO ACHS #120 tablet 03/18/16 Hydrocodone/Acetaminophen [[place] 5-325 mg Tablet] 1 tab PO Q6 #10 tablet Ibuprofen 600 mg PO Q8HP PRN #14 tablet 11/24/16 Morphine Sulfate [Morphine Ir 15 mg Tablet] 15 mg PO Q4HP PRN #12 tablet Tamsulosin HCl [Flomax 0.4 mg Cap.sr] 0.4 mg PO DAILY #7 cap.sr.24h 06/26/17 Allergies/Adverse Reactions: No Known Allergies Allergy (Verified 12/05/17 11:22) Physical Exam Vital Signs: Temp Pulse Resp BP Pulse Ox 97.3 F 80 18 139/66 H 99 12/05/17 17:24 12/05/17 17:24 12/05/17 17:24 12/05/17 17:24 12/05/17 17:24 Results Impressions: Limited or Localized CT 12/05/17 15:54 IMPRESSION: 1. Left obstructive uropathy, mild to moderate hydronephrosis due to a stone just beyond the UPJ. This measures almost 6 mm transverse by 7 mm craniocaudal. Assessment & Plan - Plan Summary Plan Summary: NEEDS CYSTOSCOPY, LEFT RETROGRADE PYELOGRAM AND INSERTION OF DOUBLE J CATHETER ON LEFT SIDE WHEN LITERACY EDUCATION PROFESSOR CLEARS HIM
[2017-12-05] MEDS ORDERED: CEFEPIME 2 GM/D5W RTU 2 GM/50 ML RTUPB IV ONE (19:45)
[2017-12-05] MEDS: GABAPENTIN 100 MG CAPSULE PO SCH (21:43)
[2017-12-05] MEDS ORDERED: CEFEPIME INJ 2 GM VIAL ONE (22:00)
[2017-12-06] MEDS: MORPHINE SULFATE 10 MG/ML INJ IV PRN ×3 (00:36→22:47)
[2017-12-06 05:34] LABS: INTERNATIONAL RATION (INR) 0.99; PROTHROMBIN TIME 13.6 SEC (11.4-15.4)
[2017-12-06 05:36] LABS: HEMATOCRIT 40.4 % (37.9-51.0); HEMOGLOBIN 13.8 g/dL (13.5-17.0); MEAN CORPUSCULAR HEMOGLOBIN 30.9 pg (27.0-33.4); MEAN CORPUSCULAR HGB CONC 34.2 g/dL (32.0-36.0); MEAN CORPUSCULAR VOLUME 90 fl (80-97); PLATELET COUNT 200 10^3/uL (150-450); RED BLOOD COUNT 4.48 10^6/uL (4.35-5.55); RED CELL DISTRIBUTION WIDTH 13.3 % (11.5-14.0); WHITE BLOOD COUNT 9.1 10^3/uL (4.0-10.5)
[2017-12-06 05:58] LABS: ANION GAP 15 (5-19); BLOOD UREA NITROGEN 22 mg/dL (7-20); CALCIUM 9.5 mg/dL (8.4-10.2); CARBON DIOXIDE 22 mmol/L (22-30); CHLORIDE 107 mmol/L (98-107); GLUCOSE 148 mg/dL (75-110); POTASSIUM 4.4 mmol/L (3.6-5.0); SODIUM 143.7 mmol/L (137-145)
[2017-12-06] MEDS: GABAPENTIN 100 MG CAPSULE PO SCH (07:24)
[2017-12-06] MEDS ORDERED: ONDANSETRON HCL INJ/PF 4 MG/2 ML SDV IV PRN (08:30)
[2017-12-06] MEDS: METOPROLOL SUCCINATE 50 MG TAB.SR.24H PO SCH (09:39)
[2017-12-06] MEDS: CEFEPIME HCL 2 GM in DEXTROSE 5%-WATER 50 ML IV SCH ×2 (09:40→21:50)
[2017-12-06] MEDS ORDERED: MIDAZOLAM 2 MG/2 ML INJ ONE (09:57)
[2017-12-06] MEDS ORDERED: FENTANYL CITRATE INJ/PF 100 MCG/2 ML AMPUL ONE ×2 (09:57)
[2017-12-06] MEDS ORDERED: LIDOCAINE 2% INJ-PF (20 MG/ML) 10 ML AMPUL ONE (09:57)
[2017-12-06] MEDS ORDERED: ACETAMINOPHEN 100 ML IV ONE (09:58)
[2017-12-06] MEDS ORDERED: DEXMEDETOMIDINE INJ 80 MCG/20 ML VIAL IV ONE (09:58)
[2017-12-06] MEDS ORDERED: PROPOFOL INJ 200 MG/20 ML VIAL IV ONE (09:58)
[2017-12-06] MEDS ORDERED: LISINOPRIL 10 MG PO SCH (10:00)
[2017-12-06] MEDS ORDERED: CLOPIDOGREL BISULFATE 75 MG TABLET PO SCH (10:00)
[2017-12-06] MEDS ORDERED: CEFEPIME 2 GM/D5W RTU 2 GM/50 ML RTUPB IV SCH (10:00)
[2017-12-06] MEDS ORDERED: ASPIRIN 81 MG TABLET, ENT COATED PO SCH (10:00)
[2017-12-06] MEDS ORDERED: ENOXAPARIN SODIUM INJ 40 MG/0.4 ML DISP.SYRIN SUBCUT SCH (10:00)
--- NOTE | 2017-12-06 12:58 | Operative Report ---
Operative Report DATE OF SURGERY: 12/06/17 PREOPERATIVE DIAGNOSIS: left ureteral stone with hydro POSTOPERATIVE DIAGNOSIS: same OPERATION: cystoscopy left retrograde pyelogram and attempt at left insertion of double j SURGEON: ASA FORD CONSERVATION SCIENTIST: none ANESTHESIA: GA TISSUE REMOVED OR ALTERED: none COMPLICATIONS: could not insert #6 double j was too tight due to stone ESTIMATED BLOOD LOSS: 0 INTRAOPERATIVE FINDINGS: bladder normal mucosa, enlarged prostate PROCEDURE: with the patient in the supine position after GA, repostioned in dorsolithotomy , scrubbed and draped. then # 21 cystoscope sheath was introduced to the bladder , normal mucosa, enlarged prostate with elevated bladder neck, then left orifice identified, guide wire was inserted then # 5 ureteral catheter was followed, retrograde was done, then all what they have in double J's wa #6 and & , no 4.5 was available, tried # 6 but it was tight due to the stone ,so we discontinued , lake catheter was inserted due to irritation of the scope and he is on Plavix, tomorrow lake can be removed.after this patient left the OR in good condition.
--- NOTE | 2017-12-06 15:16 | RADIOLOGY REPORT (SQ) ---
EXAM DESCRIPTION: PYELOGRAM RETROGRADE COMPLETED DATE/TIME: 12/06/2017 2:22 pm REASON FOR STUDY: LEFT RETROGRADE PYELOGRAM IN CYSTO COMPARISON: None. FLUOROSCOPY TIME: 9 seconds 3 images saved to PACS. TECHNIQUE: Intra-operative images acquired during surgical procedure to evaluate progress. NUMBER OF IMAGES: 3 LIMITATIONS: None. FINDINGS: Selected images from retrograde opacification of the left renal collecting system. There is a guide wire overlying the renal pelvis. IMPRESSION: IMAGE(S) OBTAINED DURING PROCEDURE. COMMENT: Quality ID [id number]: Final reports for procedures using fluoroscopy that document radiation exp osure indices, or exposure time and number of fluorographic images (if radiation exposure indices are not available) Please consult full operative report of the attending physician for description of the procedure. TECHNICAL DOCUMENTATION: JOB ID: [id number] [employer]- All Rights Reserved Reading location - IP/workstation name: [email or web address]
[2017-12-06] MEDS: GABAPENTIN 300 MG CAPSULE PO SCH ×3 (15:52→21:55)
[2017-12-06] MEDS: LISINOPRIL 10 MG TABLET PO SCH (15:52)
[2017-12-06] MEDS ORDERED: (PENDING PHARMACY ID) (Exenatide Microspheres [Bydureon Pen] 2 MG) SQ SCH (16:30)
[2017-12-06] MEDS ORDERED: NORMAL SALINE 1000 ML 1,000 ML IV PRN (17:10)
--- NOTE | 2017-12-06 17:17 | PDOC PROGRESS REPORT ---
Subjective Progress Note for:: 12/06/17 Subjective:: feeling better. no more pain Reason For Visit: NEPHROLITHIASIS Physical Exam Vital Signs: Temp Pulse Resp BP Pulse Ox 97.5 F 69 16 130/70 H 98 12/06/17 12:19 12/06/17 12:19 12/06/17 12:19 12/06/17 12:19 12/06/17 12:19 Intake & Output 12/05/17 12/06/17 12/07/17 06:59 06:59 06:59 Intake Total 425 500 Output Total 250 Balance 425 250 Weight 175.4 kg 79.379 kg General appearance: PRESENT: no acute distress Head exam: PRESENT: atraumatic Eye exam: PRESENT: conjunctiva pink Neck exam: PRESENT: carotid bruit Respiratory exam: PRESENT: clear to auscultation noelle Cardiovascular exam: PRESENT: RRR, +S1, +S2 Pulses: PRESENT: +1 pedal pulses bilateral GI/Abdominal exam: PRESENT: normal bowel sounds, soft Extremities exam: PRESENT: full ROM Musculoskeletal exam: PRESENT: ambulatory Neurological exam: PRESENT: alert, awake Results Laboratory Results: 12/06/17 04:14 12/06/17 04:14 12/06/17 12/06/17 04:14 04:14 WBC 9.1 RBC 4.48 Hgb 13.8 Hct 40.4 MCV 90 MCH 30.9 MCHC 34.2 RDW 13.3 Plt Count 200 Sodium 143.7 Potassium 4.4 Chloride 107 Carbon Dioxide 22 Anion Gap 15 BUN 22 H Creatinine 1.38 H Est GFR ( Amer) > 60 Est GFR (Non-Af Amer) 50 L Glucose 148 H Calcium 9.5 Impressions: Limited or Localized CT 12/05/17 15:54 IMPRESSION: 1. Left obstructive uropathy, mild to moderate hydronephrosis due to a stone just beyond the UPJ. This measures almost 6 mm transverse by 7 mm craniocaudal. Retrograde Pyelogram 12/06/17 00:00 IMPRESSION: IMAGE(S) OBTAINED DURING PROCEDURE. Assessment & Plan - Diagnosis (1) ENMA (acute kidney injury) Is this a current diagnosis for this admission?: Yes Plan: iv hydraton (2) Diabetes Qualifiers: Diabetes mellitus type: type 2 Diabetes mellitus superintendent terminal insulin use: with superintendent terminal use Diabetes mellitus complication status: without complication Qualified Code(s): E11.9 - Type 2 diabetes mellitus without complications; Z79.4 - terminal gauger supervisor (current) use of insulin; Z79.4 - terminal gauger supervisor ( current) use of insulin; Z79.4 - prison (current) use of insulin; Z79.4 - terminal gauger supervisor (current) use of insulin Is this a current diagnosis for this admission?: Yes Plan: continue insulin (3) Ureteral calculus Is this a current diagnosis for this admission?: Yes Plan: urology f/u (4) Hematuria Is this a current diagnosis for this admission?: Yes Plan: hydration (5) CAD (coronary artery disease) Is this a current diagnosis for this admission?: Yes Plan: continue meds
[2017-12-06] MEDS ORDERED: (PENDING PHARMACY ID) (Omega-3 Fatty Acids/Fish Oil [Fish Oil 1,000 Mg Capsule] 1 CAP) PO SCH (18:00)
[2017-12-06] MEDS ORDERED: (PENDING PHARMACY ID) (Insulin Aspart [Novolog Flexpen] 10 UNITS) SQ SCH (18:00)
[2017-12-06] MEDS: METFORMIN HCL 500 MG TABLET PO SCH (19:32)
[2017-12-06] MEDS: OMEGA-3 ACID ETHYL ESTERS 1 GM CAPSULE PO SCH (19:32)
[2017-12-06] MEDS: INSULIN LISPRO 100 UNIT/ML 3 ML VIAL SUBCUT SCH (19:32)
[2017-12-06] MEDS ORDERED: INSULIN GLARGINE,HUM.REC.ANLOG 1,000 UNIT/10 ML UNIT SUBCUT SCH (22:00)
[2017-12-06] MEDS ORDERED: INSULIN GLARGINE,HUM.REC.ANLOG 300 UNIT/3 ML INSULN.PEN SUBCUT SCH (22:00)
[2017-12-07] MEDS: MORPHINE SULFATE 10 MG/ML INJ IV PRN ×2 (00:15→06:29)
[2017-12-07] MEDS ORDERED: LANSOPRAZOLE 30 MG TAB.RAP.DR PO SCH (06:00)
[2017-12-07] MEDS: GABAPENTIN 300 MG CAPSULE PO SCH ×3 (06:14→15:02)
[2017-12-07 06:55] LABS: HEMATOCRIT 42.6 % (37.9-51.0); HEMOGLOBIN 14.6 g/dL (13.5-17.0); MEAN CORPUSCULAR HEMOGLOBIN 30.9 pg (27.0-33.4); MEAN CORPUSCULAR HGB CONC 34.3 g/dL (32.0-36.0); MEAN CORPUSCULAR VOLUME 90 fl (80-97); PLATELET COUNT 226 10^3/uL (150-450); RED BLOOD COUNT 4.73 10^6/uL (4.35-5.55); RED CELL DISTRIBUTION WIDTH 13.3 % (11.5-14.0); WHITE BLOOD COUNT 12.8 10^3/uL (4.0-10.5)
[2017-12-07 07:20] LABS: ANION GAP 15 (5-19); BLOOD UREA NITROGEN 19 mg/dL (7-20); CALCIUM 9.7 mg/dL (8.4-10.2); CARBON DIOXIDE 24 mmol/L (22-30); CHLORIDE 102 mmol/L (98-107); GLUCOSE 147 mg/dL (75-110); POTASSIUM 4.5 mmol/L (3.6-5.0); SODIUM 141.2 mmol/L (137-145)
[2017-12-07] MEDS: METFORMIN HCL 500 MG TABLET PO SCH ×2 (08:57→17:05)
[2017-12-07] MEDS ORDERED: LISINOPRIL 10 MG TABLET PO SCH (10:00)
[2017-12-07] MEDS ORDERED: ATORVASTATIN CALCIUM 40 MG TABLET PO SCH (10:00)
[2017-12-07] MEDS ORDERED: (PENDING PHARMACY ID) (Pantoprazole Sodium [Protonix] 20 MG) PO SCH (10:00)
[2017-12-07] MEDS ORDERED: (PENDING PHARMACY ID) (Fenofibrate [Fenofibrate] 160 MG) PO SCH (10:00)
[2017-12-07] MEDS ORDERED: ASPIRIN 81 MG TABLET, ENT COATED PO SCH (10:00)
[2017-12-07] MEDS ORDERED: CLOPIDOGREL BISULFATE 75 MG TABLET PO SCH (10:00)
[2017-12-07] MEDS ORDERED: METOPROLOL SUCCINATE 50 MG TAB.SR.24H PO SCH (10:00)
[2017-12-07] MEDS ORDERED: FENOFIBRATE NANOCRYSTALLIZED 145 MG TABLET PO SCH (10:00)
[2017-12-07] MEDS ORDERED: (PENDING PHARMACY ID) (Vit A/Vit C/Vit E/Zinc/Copper [Preservision Areds Softgel] 1 CAP) PO SCH (10:00)
[2017-12-07] MEDS: OMEGA-3 ACID ETHYL ESTERS 1 GM CAPSULE PO SCH (10:25)
[2017-12-07] MEDS: METOPROLOL SUCCINATE 50 MG TAB.SR.24H PO SCH (10:25)
[2017-12-07] MEDS: INSULIN LISPRO 100 UNIT/ML 3 ML VIAL SUBCUT SCH ×2 (10:26→15:02)
[2017-12-07] MEDS: LISINOPRIL 10 MG TABLET PO SCH (10:26)
[2017-12-07] MEDS: CEFEPIME HCL 2 GM in DEXTROSE 5%-WATER 50 ML IV SCH (10:41)
--- NOTE | 2017-12-07 11:37 | PDOC PROGRESS REPORT ---
Subjective Progress Note for:: 12/07/17 Subjective:: The patient had some more pain this morning possibly the stone is moving. Long discussion with the urologist. He keeps on insisting that we did not have the equipment to be able to do the procedure safely and because patient was on Plavix he was concerned about excessive bleeding. I have discussed the case with the urologist for possible transfer. He is supposed to get back to me. Reason For Visit: NEPHROLITHIASIS Physical Exam Vital Signs: Temp Pulse Resp BP Pulse Ox 97.9 F 94 16 109/60 98 12/07/17 04:58 12/07/17 04:58 12/07/17 04:58 12/07/17 04:58 12/07/17 04:58 Intake & Output 12/06/17 12/07/17 12/08/17 06:59 06:59 06:59 Intake Total 425 2704 Output Total 250 Balance 425 2454 Weight 175.4 kg 79.3 kg General appearance: PRESENT: mild distress Head exam: PRESENT: atraumatic Eye exam: PRESENT: conjunctiva pink Neck exam: PRESENT: carotid bruit. ABSENT: JVD Respiratory exam: PRESENT: clear to auscultation noelle Cardiovascular exam: PRESENT: RRR, +S1, +S2 Pulses: PRESENT: +1 pedal pulses bilateral GI/Abdominal exam: PRESENT: soft, tenderness Additonal comments: Tender to palpation and percussion in the left flank Extremities exam: PRESENT: full ROM Musculoskeletal exam: PRESENT: ambulatory Neurological exam: PRESENT: alert, awake Results Laboratory Results: 12/07/17 06:23 12/07/17 06:23 12/07/17 12/07/17 06:23 06:23 WBC 12.8 H RBC 4.73 Hgb 14.6 Hct 42.6 MCV 90 MCH 30.9 MCHC 34.3 RDW 13.3 Plt Count 226 Sodium 141.2 Potassium 4.5 Chloride 102 Carbon Dioxide 24 Anion Gap 15 BUN 19 Creatinine 1.37 H Est GFR ( Amer) > 60 Est GFR (Non-Af Amer) 51 L Glucose 147 H Calcium 9.7 Impressions: Limited or Localized CT 12/05/17 15:54 IMPRESSION: 1. Left obstructive uropathy, mild to moderate hydronephrosis due to a stone just beyond the UPJ. This measures almost 6 mm transverse by 7 mm craniocaudal. Retrograde Pyelogram 12/06/17 00:00 IMPRESSION: IMAGE(S) OBTAINED DURING PROCEDURE. Assessment & Plan - Diagnosis (1) ENMA (acute kidney injury) Is this a current diagnosis for this admission?: Yes Plan: BUN and creatinine have stabilized. We will continue with current hydration (2) Diabetes Qualifiers: Diabetes mellitus type: type 2 Diabetes mellitus half-way insulin use: with half-way use Diabetes mellitus complication status: without complication Qualified Code(s): E11.9 - Type 2 diabetes mellitus without complications; Z79.4 - [facility] (current) use of insulin; Z79.4 - termite helper ( current) use of insulin; Z79.4 - termite helper (current) use of insulin; Z79.4 - [facility] (current) use of insulin Is this a current diagnosis for this admission?: Yes Plan: Stable well controlled we will continue with current insulin (3) Ureteral calculus Is this a current diagnosis for this admission?: Yes Plan: Awaiting possible evaluation and a transfer for a procedure which cannot be performed here because the urologist does not believe we have the appropriate catheter and he is concerned with patient being on Plavix (4) Hematuria Is this a current diagnosis for this admission?: Yes Plan: Improved and clearing. We will continue with [place] catheter (5) CAD (coronary artery disease) Is this a current diagnosis for this admission?: Yes Plan: Stable we will continue current medications and will hold Plavix because of possible need for urologic procedure and possible bleeding
[2017-12-07] MEDS ORDERED: TAMSULOSIN HCL 0.4 MG CAP.SR.24H PO ONE (11:50)
[2017-12-07] MEDS ORDERED: TAMSULOSIN HCL 0.4 MG CAP.SR.24H PO SCH ×2 (12:00→18:00)
[2017-12-07 13:57] VITALS: BP 102/62
--- NOTE | 2017-12-07 17:08 | PDOC DISCHARGE SUMMARY ---
General - Admit/Disc Date/PCP Admission Date/Primary Care Provider: 12/05/17 17:20 CHAU PULIDO, Discharge Date: 12/07/17 - Discharge Diagnosis (1) ENMA (acute kidney injury) Is this a current diagnosis for this admission?: Yes (2) Diabetes Is this a current diagnosis for this admission?: Yes (3) Ureteral calculus Is this a current diagnosis for this admission?: Yes (4) Hematuria Is this a current diagnosis for this admission?: Yes (5) CAD (coronary artery disease) Is this a current diagnosis for this admission?: Yes - Additional Information Resuscitation Status: Full Code Discharge Diet: Diabetic Discharge Activity: Activity As Tolerated Home Medications: Aspirin [Ecotrin 81 mg EC Tablet] 81 mg PO DAILY 12/06/17 Atorvastatin Calcium [Lipitor 40 mg Tablet] 40 mg PO DAILY 12/06/17 Clopidogrel Bisulfate [Plavix 75 mg Tablet] 75 mg PO DAILY 12/06/17 Exenatide Microspheres [Bydureon Pen] 2 mg SQ Q7D 12/06/17 Fenofibrate 160 mg PO DAILY 12/06/17 Gabapentin [Neurontin 300 mg Capsule] 300 mg PO Q8 12/06/17 Insulin Aspart [Novolog Flexpen] 10 units SQ TID 12/06/17 Insulin Glargine,Hum.rec.anlog [Lantus Solostar] 66 unit SQ QHS 12/06/17 Lisinopril [Prinivil 10 mg Tablet] 10 mg PO DAILY 12/06/17 Metformin HCl [Glucophage] 1,000 mg PO BIDBS 12/06/17 Metoprolol Succinate [Toprol Xl 50 mg Tab.sr] 50 mg PO DAILY 12/06/17 [place]-3 Fatty Acids/Fish Oil [Fish Oil 1,000 mg Capsule] 1 cap PO BID 12/06/17 Pantoprazole Sodium [Protonix] 20 mg PO DAILY 12/06/17 Vit A/Vit C/Vit E/Zinc/Copper [Preservision Areds Softgel] 1 cap PO DAILY History of Present Illness History of Present Illness: CHAU ANDERSON is a 72 year old male Hospital Course Hospital Course: Case was discussed with the urologist. The patient will be discharged home and followed up with the urologist tomorrow for any further outpatient treatment. Physical Exam Vital Signs: Temp Pulse Resp BP Pulse Ox 98.9 F 91 13 102/62 97 12/07/17 13:00 12/07/17 13:00 12/07/17 13:00 12/07/17 13:00 12/07/17 13:00 Intake & Output 12/06/17 12/07/17 12/08/17 06:59 06:59 06:59 Intake Total 425 2704 Output Total 250 Balance 425 2454 Weight 175.4 kg 79.3 kg Results Laboratory Results: 12/07/17 06:23 12/07/17 06:23 12/07/17 12/07/17 06:23 06:23 WBC 12.8 H RBC 4.73 Hgb 14.6 Hct 42.6 MCV 90 MCH 30.9 MCHC 34.3 RDW 13.3 Plt Count 226 Sodium 141.2 Potassium 4.5 Chloride 102 Carbon Dioxide 24 Anion Gap 15 BUN 19 Creatinine 1.37 H Est GFR ( Amer) > 60 Est GFR (Non-Af Amer) 51 L Glucose 147 H Calcium 9.7 Impressions: Limited or Localized CT 12/05/17 15:54 IMPRESSION: 1. Left obstructive uropathy, mild to moderate hydronephrosis due to a stone just beyond the UPJ. This measures almost 6 mm transverse by 7 mm craniocaudal. Retrograde Pyelogram 12/06/17 00:00 IMPRESSION: IMAGE(S) OBTAINED DURING PROCEDURE. Qualifiers - * PATIENT BEING DISCHARGED WITH ANY OF THE FOLLOWING DIAGNOSIS: No
[2017-12-07] MEDS ORDERED: SULFAMETHOXAZOLE/TRIMETHOPRIM 800-160 MG TABLET PO SCH (18:00)
== END 2017-12-07 17:50 | disposition home or self-care (01) | DRG 694 ==
LOC: ER 11:19 → EH 17:20 → UNDOADMIN 17:20 → 5 18:47
PROVIDERS: ADMIT Family Medicine; ATTEND Family Medicine
PROC: 0T9B80Z Drainage of Bladder with Drainage Device, Via Natural or Artificial Opening Endoscopic (ICD-10-PCS; 2017-12-06)
PROC: BT1FZZZ Fluoroscopy of Left Kidney, Ureter and Bladder (ICD-10-PCS; principal; 2017-12-06 10:30)
DX: N13.2 Hydronephrosis with renal and ureteral calculous obstruction (principal); I10 Essential (primary) hypertension; N17.9 Acute kidney failure, unspecified; I25.10 Atherosclerotic heart disease of native coronary artery without angina pectoris; E11.9 Type 2 diabetes mellitus without complications; M19.90 Unspecified osteoarthritis, unspecified site; G56.03 Carpal tunnel syndrome, bilateral upper limbs; R31.9 Hematuria, unspecified; I25.2 Old myocardial infarction; E78.5 Hyperlipidemia, unspecified; Z79.82 Long term (current) use of aspirin; Z79.4 Long term (current) use of insulin; Z79.899 Other long term (current) drug therapy; Z95.5 Presence of coronary angioplasty implant and graft; Z79.02 Long term (current) use of antithrombotics/antiplatelets
CPT/HCPCS: 36415; 74420; 76380; 80048; 81001; 82962; 85025; 85027; 85610; 85730; 910; 99285; C1758; C2617; J0131; J0692; J1815; J1885; J2250; J2270; J2405; J2704; J3010; J3490; J7030; S0119

== ENCOUNTER → 2018-01-05 | Outpatient (CLI) | payer MEDICARE, OTHER ==
[2018-01-05 08:23] LABS: ALANINE AMINOTRANSFERASE 28 U/L (21-72); ALBUMIN 3.9 g/dL (3.5-5.0); ALKALINE PHOSPHATASE 47 U/L (38-126); ANION GAP 11 (5-19); ASPARTATE AMINO TRANSFERASE 21 U/L (17-59); BILIRUBIN,DIRECT 0.4 mg/dL (0.0-0.4); BILIRUBIN,TOTAL 0.4 mg/dL (0.2-1.3); BLOOD UREA NITROGEN 21 mg/dL (7-20); CALCIUM 9.8 mg/dL (8.4-10.2); CARBON DIOXIDE 26 mmol/L (22-30); CHLORIDE 107 mmol/L (98-107); CHOLESTEROL 197.33 mg/dL (0-200); GLUCOSE 117 mg/dL (75-110); POTASSIUM 4.6 mmol/L (3.6-5.0); SODIUM 143.9 mmol/L (137-145); TOTAL PROTEIN 6.6 g/dL (6.3-8.2); TRIGLYCERIDES 255 mg/dL (<150)
[2018-01-05 08:35] LABS: DIRECT LDL 116 mg/dL (<100)
== END ==
LOC: OD 07:07
PROVIDERS: ATTEND Internal Medicine
DX: E11.9 Type 2 diabetes mellitus without complications (principal); I10 Essential (primary) hypertension; I25.10 Atherosclerotic heart disease of native coronary artery without angina pectoris
CPT/HCPCS: 36415; 80053; 80061; 83036

== ENCOUNTER 2018-03-15 05:35 | Day surgery (SDC) | payer OTHER, MEDICARE ==
--- NOTE | 2018-03-09 13:21 | RADIOLOGY REPORT (SQ) ---
EXAM DESCRIPTION: CHEST PA/LATERAL COMPLETED DATE/TIME: 03/09/2018 12:09 pm REASON FOR STUDY: PRE-OP COMPARISON: Two-view chest 04/22/2015, 09/13/2015 EXAM PARAMETERS: NUMBER OF VIEWS: two views TECHNIQUE: Digital Frontal and Lateral radiographic views of the chest acquired. RADIATION DOSE: NA LIMITATIONS: none FINDINGS: LUNGS AND PLEURA: No opacities, masses or pneumothorax. No pleural effusion. MEDIASTINUM AND HILAR STRUCTURES: No masses or contour abnormalities. HEART AND VASCULAR STRUCTURES: Heart normal size. No evidence for failure. BONES: No acute findings. HARDWARE: None in the chest. OTHER: No other significant finding. IMPRESSION: NO SIGNIFICANT RADIOGRAPHIC FINDING IN THE CHEST. TECHNICAL DOCUMENTATION: JOB ID: [id number] [employer]- All Rights Reserved Reading location - IP/workstation name: [email or web address]
[2018-03-09 13:28] LABS: HEMATOCRIT 37.6 % (37.9-51.0); HEMOGLOBIN 12.8 g/dL (13.5-17.0); MEAN CORPUSCULAR VOLUME 88 fl (80-97); PLATELET COUNT 200 10^3/uL (150-450); RED BLOOD COUNT 4.27 10^6/uL (4.35-5.55)
[2018-03-09 13:45] LABS: APPEARANCE,URINE CLEAR; BILIRUBIN,URINE NEGATIVE (NEGATIVE); COLOR,URINE YELLOW; GLUCOSE, URINE >=500 mg/dL (NEGATIVE); KETONES,URINE NEGATIVE (NEGATIVE); LEUKOCYTE ESTERASE,URINE NEGATIVE (NEGATIVE); NITRITE,URINE NEGATIVE (NEGATIVE); PROTEIN,URINE NEGATIVE (NEGATIVE); UROBILINOGEN,URINE NEGATIVE mg/dL (<2.0)
[2018-03-09 13:55] LABS: ANION GAP 14 (5-19); BLOOD UREA NITROGEN 20 mg/dL (7-20); CARBON DIOXIDE 25 mmol/L (22-30); CHLORIDE 102 mmol/L (98-107); GLUCOSE 218 mg/dL (75-110); POTASSIUM 4.7 mmol/L (3.6-5.0); SODIUM 140.5 mmol/L (137-145)
--- NOTE | 2018-03-09 21:30 | EKG REPORT ---
SEVERITY:- ABNORMAL ECG - SINUS RHYTHM VENTRICULAR PREMATURE COMPLEX FIRST DEGREE AV BLOCK : Confirmed by: Martita Burnett MD 09-Mar-2018 21:29:47
[~2018-03-15 05:35] MED LIST: CEFAZOLIN 2 GM/D5W RTU 2 GM/50 ML RTUPB IV PRN; LIDOCAINE 0.5% INJ-PF (5 MG/ML) 50 ML SDV SUBCUT PRN; NORMAL SALINE 1000 ML (RENAL PATIENTS) IV PRN
[2018-03-15] MEDS ORDERED: EPINEPHRINE INJ/PF 1 MG/1 ML AMPULE ONE (06:20)
[2018-03-15] MEDS ORDERED: BUPIVACAINE HCL 0.5 % INJ/PF 30 ML SDV ONE (06:20)
[2018-03-15] MEDS ORDERED: METOPROLOL TARTRATE 50 MG TABLET ONE (06:59)
[2018-03-15] MEDS ORDERED: PROPOFOL INJ 200 MG/20 ML VIAL IV ONE (07:01)
[2018-03-15] MEDS ORDERED: METOPROLOL TARTRATE 50 MG TABLET PO PRN (07:01)
[2018-03-15] MEDS ORDERED: FENTANYL CITRATE INJ/PF 100 MCG/2 ML AMPUL ONE (07:01)
[2018-03-15] MEDS ORDERED: MIDAZOLAM 2 MG/2 ML INJ ONE (07:01)
[2018-03-15] MEDS ORDERED: ACETAMINOPHEN 1,000 MG/100 ML RTUPB IV ONE (07:01)
[2018-03-15] MEDS ORDERED: DEXAMETHASONE SOD PHOSPHATE INJ 4 MG/1 ML VIAL ONE (07:01)
[2018-03-15] MEDS ORDERED: ONDANSETRON HCL INJ/PF 4 MG/2 ML SDV ONE (07:01)
[2018-03-15] MEDS ORDERED: HYDROMORPHONE HCL INJ/PF 2 MG/ML AMPULE ONE (07:02)
[2018-03-15] MEDS ORDERED: EPHEDRINE SULFATE INJ 50 MG/1 ML AMPULE ONE (07:06)
[2018-03-15 08:19] LABS: INTERNATIONAL RATION (INR) 0.89; PARTIAL THROMBOPLASTIN TIME 27.8 SEC (23.5-35.8); PROTHROMBIN TIME 12.5 SEC (11.4-15.4)
[2018-03-15] MEDS ORDERED: ONDANSETRON HCL INJ/PF 4 MG/2 ML SDV IV PRN (08:24)
[2018-03-15] MEDS ORDERED: FENTANYL CITRATE INJ/PF 100 MCG/2 ML AMPUL IV PRN ×3 (08:24)
[2018-03-15] MEDS ORDERED: OXYCODONE-ACETAMINOPHEN 5-325 MG TABLET PO PRN ×3 (08:24→10:10)
[2018-03-15] MEDS ORDERED: DIPHENHYDRAMINE HCL 50 MG/ML VIAL IV PRN (08:24)
[2018-03-15] MEDS ORDERED: MEPERIDINE HCL/PF INJ 25 MG/1 ML DISP.SYRIN IV PRN (08:24)
[2018-03-15] MEDS ORDERED: PROMETHAZINE HCL INJ 25 MG/1 ML VIAL IV PRN ×2 (08:24)
[2018-03-15] MEDS ORDERED: MORPHINE SULFATE 10 MG/ML INJ IV PRN ×2 (08:24→10:10)
--- NOTE | 2018-03-15 10:11 | Discharge Summary ---
Discharge Summary (SDC) - Discharge Final Diagnosis: Right shoulder rotator cuff tear Date of Surgery: 03/15/18 Discharge Date: 03/15/18 Condition: Good Treatment or Instructions: Schedule Follow Up w/ Dr. Jason Elias @ [facility] for Surgery to be seen in 10-14 days or as scheduled [place]: [place]: [place]: May remove dressing on postop day #3, keep incision covered and dry. Cryocuff to shoulder May begin pendulum exercises along w/ hand, wrist and elbow range of motion 4x per day or as tolerated. May remove sling for hygiene purposes otherwise continue it at all times. Stool softener of choice when on pain medication. Prescriptions: Oxycodone HCl/Acetaminophen [Percocet 5-325 mg Tablet] 1 - 2 tab PO Q6 #35 tablet Referrals: CHAU PULIDO MD [Primary Care Provider] - Discharge Diet: As Tolerated Respiratory Treatments at Home: Deep Breathing/Coughing Discharge Activity: No Lifting Over 10 Pounds, No Lifting/Push/Pulling Report the Following to Your Physician Immediately: Fever over 101 Degrees, Unusual Bleeding, Redness, Swelling, Warmth, Increased Soreness
--- NOTE | 2018-03-15 10:17 | Operative Report ---
Operative Report DATE OF SURGERY: 03/15/18 PREOPERATIVE DIAGNOSIS: Right shoulder rotator cuff tear POSTOPERATIVE DIAGNOSIS: Same plus degenerative SLAP tear, AC joint arthrosis OPERATION: Right shoulder arthroscopy with rotator cuff repair, distal clavicle [id number] subpectoralis biceps tenodesis SURGEON: LARISSA SCHMIDT ANESTHESIA: GA COMPLICATIONS: None ESTIMATED BLOOD LOSS: Minimal PROCEDURE: Indication for above procedure: Pleasant 73-year-old male who has been seen in my office for his right shoulder and wrist. Patient complains of right shoulder discomfort worse with overhead activities. Attempted conservative management including therapy and injections without long-term resolution of patient's symptoms. At that point decision was made to proceed with operative treatment which includes right shoulder arthroscopy with rotator cuff repair we also discussed concomitant carpal tunnel release however after discussing postoperative rehabilitation decision was made to forego carpal tunnel release which we will do as an outpatient procedure in the future. Risks and benefits of the surgical procedure have been explained patient has verbalized understanding consented for the procedure. Procedure In Detail: Patient was seen and evaluated in the preoperative holding area. The RIGHT upper extremity was initialized and marked. Patient received 2g of Ancef IV for bacterial prophylaxis. Patient was taken back to the operative room where transferred to the operative table and placed under general anesthesia. Once they were adequately anesthetized patient was placed in the beachchair position , bilateral lower extremities carefully padded along with nonoperative left upper extremity. Cervical spine was placed in a neutral position with all bony prominences padded. A surgical team debriefing was performed ensuring all instrumentation was available, the surgical procedure was discussed with possible concerns reviewed. The upper extremity was prepped with ChloraPrep and draped in a sterile fashion. A timeout was done identifying correct patient, procedure and extremity everyone in attendance agree with this and verbalized no concerns. Posterior lateral portal was established glenoid humeral joint. Via translation anterior portal was established. Diagnostic arthroscopy demonstrated significant synovitis along the anterior aspect of the shoulder with degenerative SLAP tear. There was partial thickness rotator cuff tear anteriorly with a high-grade partial-thickness rotator cuff tear along the posterior portion of supraspinatus extending into the infraspinatus. The glenohumeral joint was debrided there is no evidence of degenerative changes. Partial synovectomy was performed biceps tenotomy was performed to allow for later tenodesis. Arthroscope was introduced into the subacromial space. Lateral portal established, significant subacromial bursitis was encountered. Subacromial decompression was performed with bursectomy. The coracoacromial ligament was elevated along the anterior aspect of the acromion but not excised. Acromioplasty was performed for a type II acromion. Exploration demonstrated thin tissue along the posterior aspect of the supraspinatus and anterior aspect of the infraspinatus. No full-thickness tear was appreciated anteriorly. This tear was then debrided down to the lateral tuberosity. The tuberosity was debrided exposing good cancellus bone for optimal rotator cuff healing. A fast port cannula was placed laterally in a horizontal mattress fiber tape placed along the anterior aspect of the tear. A second horizontal mattress fiber tape was placed posterior along the posterior aspect. The lateral row anteriorly at the supraspinatus remained intact thus I do not feel double row repair was required. An additional portal was established to confirm appropriate placement of my anchor along the lateral aspect of the greater tuberosity. The sutures were then shuttled and placed through a swivel lock anchor which was then placed into position carefully independently tensioning each of my mattress sutures which brought the rotator cuff tear firmly down to bone. There is no evidence of residual perforation thus the sutures were cut. The chromic clavicular joint was then located in anterior portal utilized. Distal clavicle excision was performed excising approximately 10 mm of the distal clavicle voiding and involvement of the coracoclavicular ligament. There is no evidence of impingement with range of motion. I then turned attention to the subpectoral biceps tenodesis. Longitudinal skin incision was made along the inferior third of the pectoralis major. Blunt dissection was performed identifying the inferior border of the pectoralis major. Any peripheral vasculature was carefully coagulated. I then identified the tenotomized long head of the biceps which was retrieved and brought out the wound. The tendon was then secured 2 centimeters distal to the musculotendinous junction with a #2 fiber loop and the remaining diseased portion of the biceps was excised. The Arthrex biceps tenodesis button was then secured to my biceps tendon. Under direct visualization I then cleared an area along the anterior aspect of the humerus and drilled unicortically. The button was then placed into the unicortical hole and the biceps tendon was shuttled to the anterior cortex of the humerus. I then checked stability of the button confirming maximal fixation. Utilizing the free needle one limb of the remaining FiberWire was secured to the biceps providing further fixation. The elbow was then placed through range of motion to ensure appropriate tension of the biceps with flexion and extension. The wound was then copiously irrigated with normal saline. Any peripheral vasculature was carefully coagulated with Bovie cautery. Skin was closed a running subcuticular 4-0 Monocryl suture reinforced with Dermabond and Steri-Strips. 30 cc of 0.5% bupivacaine without epinephrine was injected for postoperative pain control. Sponge counts, instrument counts, needle counts counts were correct. Patient was then awoken from anesthesia. Transferred from the operating room table to the operating room stretcher. There was no intraoperative complications patient tolerated procedure well stable to PACU. Postoperative plan: Patient will follow-up the office in 2 weeks for suture removal. Will begin physical therapy 4 weeks postoperatively as per rotator cuff repair protocol.
[2018-03-15 12:23] VITALS: BP 133/86
[2018-03-15] MEDS ORDERED: SUCCINYLCHOLINE CHLORIDE INJ 200 MG/10 ML VIAL ONE (16:08)
[2018-03-15] MEDS ORDERED: KETOROLAC TROMETHAMINE 60 MG/2 ML SDV ONE (16:08)
[2018-03-15] MEDS ORDERED: ROCURONIUM BROMIDE INJ 50 MG/5 ML VIAL IV ONE (16:08)
== END 2018-03-15 12:20 | disposition home or self-care (01) ==
LOC: OROUT 05:35
PROVIDERS: ATTEND Orthopaedic Surgery
DX: M75.121 Complete rotator cuff tear or rupture of right shoulder, not specified as traumatic (principal); M19.011 Primary osteoarthritis, right shoulder; S43.431A Superior glenoid labrum lesion of right shoulder, initial encounter; X58.XXXA Exposure to other specified factors, initial encounter; E78.00 Pure hypercholesterolemia, unspecified; I10 Essential (primary) hypertension; E10.8 Type 1 diabetes mellitus with unspecified complications; I25.10 Atherosclerotic heart disease of native coronary artery without angina pectoris; I20.9 Angina pectoris, unspecified; Z79.01 Long term (current) use of anticoagulants; Z79.899 Other long term (current) drug therapy; Z79.82 Long term (current) use of aspirin; Z79.1 Long term (current) use of non-steroidal anti-inflammatories (NSAID); Z79.4 Long term (current) use of insulin
CPT/HCPCS: 93005; 36415 ×2; 82962; 82947; 85027; 85610; 85730; 80048; 81001; 71046; 93010; 24340; 29827; 29824; L3650; C1713 ×2; J2250; J3490 ×2; J1100; J0171; J1885; J3010; J1170; J0330; J2405; J2704; J0690; J0131; 1630

== ENCOUNTER 2018-09-02 13:51 | Emergency (ER) | payer OTHER, MEDICARE ==
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
[2018-09-02] MEDS ORDERED: NAPROXEN 250 MG TABLET PO ONE (19:07)
[2018-09-02] MEDS ORDERED: LIDOCAINE 5% (700 MG) TRANSDERMAL ADH..PATCH TP ONE (19:07)
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
[2018-09-02 19:49] VITALS: BP 131/78
== END 2018-09-02 19:05 | disposition home or self-care (01) ==
LOC: ER 13:51
DX: S09.90XA Unspecified injury of head, initial encounter (principal); M54.2 Cervicalgia; H53.8 Other visual disturbances; M25.511 Pain in right shoulder; G89.29 Other chronic pain; V87.7XXA Person injured in collision between other specified motor vehicles (traffic), initial encounter; I10 Essential (primary) hypertension; Z79.01 Long term (current) use of anticoagulants; Z87.891 Personal history of nicotine dependence; Z79.899 Other long term (current) drug therapy; E10.9 Type 1 diabetes mellitus without complications
CPT/HCPCS: 70450; 72125; 99283

== ENCOUNTER 2018-11-30 14:13 | Emergency (ER) | payer OTHER, MEDICARE ==
--- NOTE | 2018-11-30 14:54 | ER Document Report ---
ED Medical Screen (RME) - General Chief Complaint: Urinary Problem Stated Complaint: WEAKNESS Time Seen by Provider: 11/30/18 14:43 Primary Care Provider: CHAU PULIDO MD [Primary Care Provider] - Follow up as needed Mode of Arrival: Ambulatory Information source: Patient TRAVEL OUTSIDE OF THE [place] IN LAST 30 DAYS: No - HPI Patient complains to provider of: Constipation and urinary retention. Notes: 11/30/18 14:49 Patient here with complaints of urinary retention and constipation. He states that he has not urinated in 2 days. He had not had a bowel movement in 2 days until about 5 minutes ago and he was able to have a large bowel movement here. He states that the did make him feel somewhat better. No fever. No vomiting. He does complain of some lower abdominal discomfort. No chest pain or shortness of breath. Exam No distress, patient appears to be slightly uncomfortable. Abdomen slightly distended. No tenderness to palpation. Mild tachycardia. Lungs clear and equal throughout. Plan KUB, bladder scan. If bladder scan is positive, Bar[place] insertion. Urinalysis. An initial examination was made on the patient as part of the triage process, and it was determined a more comprehensive evaluation was necessary. Initial labs were ordered and patient was transferred to another provider in the ED who assumed care and finished evaluation and plan. - Related Data Allergies/Adverse Reactions: No Known Allergies Allergy (Verified 11/30/18 14:47) Past Medical History - Social History Chew tobacco use (# tins/day): No Frequency of alcohol use: None Drug Abuse: None - Past Medical History Cardiac Medical History: Reports: Hx Hypercholesterolemia, Hx Hypertension - on meds Denies: Hx Coronary Artery Disease, Hx Heart Attack Pulmonary Medical History: Denies: Hx Asthma, Hx Bronchitis, Hx COPD, Hx Pneumonia, Hx Tuberculosis Neurological Medical History: Denies: Hx Cerebrovascular Accident, Hx Seizures Endocrine Medical History: Reports: Hx Diabetes Mellitus Type 1 Renal/ Medical History: Denies: Hx Peritoneal Dialysis GI Medical History: Reports: Hx Gastroesophageal Reflux Disease Musculoskeltal Medical History: Reports Hx Arthritis - Neck Past Surgical History: Reports: Hx Abdominal Surgery - hernia, Hx Cardiac Surgery - cath with stents. Denies: Hx Pacemaker - Immunizations Hx Diphtheria, Pertussis, Tetanus Vaccination: Yes History of Influenza Vaccine for 05/2017 - 09/2017 Season: Yes Influenza Administration Date for 05/2017 - 09/2017 Season: 12/31/17 Physical Exam - Vital signs Vitals: Temp Pulse Resp BP Pulse Ox 97.5 F 124 H 20 170/85 H 99 11/30/18 14:24 11/30/18 14:24 11/30/18 14:24 11/30/18 14:24 11/30/18 14:24 Course - Vital Signs Vital signs: Temp Pulse Resp BP Pulse Ox 97.5 F 124 H 20 170/85 H 99 11/30/18 14:24 11/30/18 14:24 11/30/18 14:24 11/30/18 14:24 11/30/18 14:24 Doctor's Discharge - Discharge Referrals: CHAU PULIDO MD [Primary Care Provider] - Follow up as needed
--- NOTE | 2018-11-30 15:32 | RADIOLOGY REPORT (SQ) ---
EXAM DESCRIPTION: KUB/ABDOMEN (SINGLE VIEW) COMPLETED DATE/TIME: 11/30/2018 3:22 pm REASON FOR STUDY: CONSTIPATION/URINARY RETENTION COMPARISON: 03/18/2016 NUMBER OF VIEWS: One view. TECHNIQUE: Supine radiographic image of the abdomen acquired. LIMITATIONS: None. FINDINGS: BOWEL GAS PATTERN: Normal bowel gas pattern. No dilated loops. CALCIFICATIONS: No suspicious calcifications. SOFT TISSUES: No gross mass or suggestion of organomegaly. HARDWARE: None in the abdomen. BONES: No acute fracture. No worrisome bone lesions. OTHER: No other significant finding. IMPRESSION: NO RADIOGRAPHIC EVIDENCE FOR ACUTE ABDOMINAL DISEASE. TECHNICAL DOCUMENTATION: JOB ID: [id number] [employer]- All Rights Reserved Reading location - IP/workstation name: [email or web address]
[2018-11-30 15:47] LABS: APPEARANCE,URINE CLEAR; BILIRUBIN,URINE NEGATIVE (NEGATIVE); COLOR,URINE STRAW; GLUCOSE, URINE >=500 mg/dL (NEGATIVE); KETONES,URINE NEGATIVE (NEGATIVE); LEUKOCYTE ESTERASE,URINE NEGATIVE (NEGATIVE); NITRITE,URINE NEGATIVE (NEGATIVE); PROTEIN,URINE NEGATIVE (NEGATIVE); URINE SPECIFIC GRAVITY 1.028; UROBILINOGEN,URINE NEGATIVE mg/dL (<2.0)
--- NOTE | 2018-11-30 17:14 | ER Document Report ---
ED General - General Chief Complaint: Urinary Problem Stated Complaint: WEAKNESS Time Seen by Provider: 11/30/18 14:43 Primary Care Provider: CHAU PULIDO MD [Primary Care Provider] - Follow up in 3-5 days Mode of Arrival: Ambulatory Notes: Patient is a 73-year-old male that presents to the emergency department for chief complaint of constipation, decreased urination. Patient reports he has not had a significant bowel movement or as much urine over the past 3 days, he tried taking Ex-Lax and a stool softener yesterday, but while he was in the ED and he had 2 large bowel movements, and feels 100% better. He denies any pain on my examination, he reportedly was having pain earlier, which he did describe as a 5 out of 10, described as an aching and cramping sensation in the abdomen. He denied any dysuria, hematuria, chest pain, shortness of breath or difficulty breathing. Denies any vomiting associated with this. Past Medical History: BPH, diabetes mellitus Past Surgical History: Multiple abdominal surgeries, cardiac catheterization, without stenting Social History: Denies current tobacco, alcohol or drug use. Family History: Reviewed and noncontributory for presenting illness Allergies: Reviewed, see documented allergy list. REVIEW OF SYSTEMS: Other than noted above, the 12 point review of systems was reviewed with the patient and were negative, all pertinent findings are included in the HPI. PHYSICAL EXAMINATION: Vital signs reviewed, nursing noted reviewed. GENERAL: Well-appearing, well-nourished and in no acute distress. HEAD: Atraumatic, normocephalic. EYES: Eyes appear normal, extraocular movements intact, sclera anicteric, conjunctiva are normal. ENT: nares patent, oropharynx clear without exudates. Moist mucous membranes. NECK: Normal range of motion, supple without lymphadenopathy LUNGS: Breath sounds clear to auscultation bilaterally and equal. No wheezes rales or rhonchi. HEART: Regular rate and rhythm without murmurs ABDOMEN: Soft, mild distention, but nontender, normoactive bowel sounds. No rebound, guarding, or rigidity. No masses appreciated. EXTREMITIES: Nontender, good range of motion, no pitting or edema. NEUROLOGICAL: No focal neurological deficits. Moves all extremities spontaneously Motor and sensory grossly intact on exam. PSYCH: Normal mood, normal affect. SKIN: Warm, Dry, normal turgor, no rashes or lesions noted on exposed skin TRAVEL OUTSIDE OF THE [place] IN LAST 30 DAYS: No - Related Data Allergies/Adverse Reactions: No Known Allergies Allergy (Verified 11/30/18 14:47) Past Medical History - General Information source: Patient - Social History Smoking Status: Never Smoker Chew tobacco use (# tins/day): No Frequency of alcohol use: None Drug Abuse: None Family History: Reviewed & Not Pertinent Patient has suicidal ideation: No Patient has homicidal ideation: No - Past Medical History Cardiac Medical History: Reports: Hx Hypercholesterolemia, Hx Hypertension - on meds Denies: Hx Coronary Artery Disease, Hx Heart Attack Pulmonary Medical History: Denies: Hx Asthma, Hx Bronchitis, Hx COPD, Hx Pneumonia, Hx Tuberculosis Neurological Medical History: Denies: Hx Cerebrovascular Accident, Hx Seizures Endocrine Medical History: Reports: Hx Diabetes Mellitus Type 1 Renal/ Medical History: Denies: Hx Peritoneal Dialysis GI Medical History: Reports: Hx Gastroesophageal Reflux Disease Musculoskeletal Medical History: Reports Hx Arthritis - Neck Past Surgical History: Reports: Hx Abdominal Surgery - hernia, Hx Cardiac Surgery - cath with stents. Denies: Hx Pacemaker - Immunizations Hx Diphtheria, Pertussis, Tetanus Vaccination: Yes Hx Pneumococcal Vaccination: 05/16/15 Physical Exam - Vital signs Vitals: Temp Pulse Resp BP Pulse Ox 97.5 F 124 H 20 170/85 H 99 11/30/18 14:24 11/30/18 14:24 11/30/18 14:24 11/30/18 14:24 11/30/18 14:24 Course - Re-evaluation Re-evalutation: Patient seen and examined vital signs reviewed. Laboratory data and/or imaging were ordered as appropriate for the patient's presenting symptoms and complaint, with consideration of any critical or life threatening conditions that may be associated with their obtained history and exam as noted above. Results were reviewed when available and demonstrated unremarkable UA, there was glucose in it, patient does have a history of diabetes The patient was re-evaluated and was stable, and much improved, his KUB is negative, patient did relieve himself with 2 large bowel movements, and stated he felt amazing and wanted to go home. Evaluation was most consistent with constipation, patient given prescription for Colace to start taking twice daily going forward. Results were discussed with the patient at this point, after careful consideration I feel that that patient can be discharged from the emergency department, the patient was educated treatments and reasons to return to the emergency department based on their presumed diagnosis as noted above, they were advised to followup with a primary care physician in 2-3 days. Patient was agreeable to plan of care. *Note is created using voice recognition software and may contain spelling, syntax or grammatical errors. Laboratory 11/30/18 14:55 Urine Color STRAW Urine Appearance CLEAR Urine pH 6.0 Ur Specific [place] 1.028 Urine Protein NEGATIVE Urine Glucose (UA) >=500 H Urine Ketones NEGATIVE Urine Blood SMALL H Urine Nitrite NEGATIVE Urine Bilirubin NEGATIVE Urine Urobilinogen NEGATIVE Ur Leukocyte Esterase NEGATIVE Urine WBC (Auto) 0 Urine RBC (Auto) 1 Squamous Epi Cells Auto <1 Urine Mucus (Auto) RARE Urine Ascorbic Acid NEGATIVE KUB X-Ray 11/30/18 14:47 IMPRESSION: NO RADIOGRAPHIC EVIDENCE FOR ACUTE ABDOMINAL DISEASE. - Vital Signs Vital signs: Temp Pulse Resp BP Pulse Ox 97.4 F 100 16 134/76 H 100 11/30/18 17:37 11/30/18 17:37 11/30/18 17:37 11/30/18 17:37 11/30/18 17:37 - Laboratory Laboratory results interpreted by me: 11/30/18 14:55 Urine Glucose (UA) >=500 H Urine Blood SMALL H Discharge - Discharge Clinical Impression: Constipation Qualifiers: Constipation type: unspecified constipation type Qualified Code(s): K59.00 - Constipation, unspecified Condition: Stable Disposition: HOME, SELF-CARE Instructions: Constipation (OM) Additional Instructions: Please continue taking a stool softener twice daily, to have a regular bowel regimen. Drink plenty of fluids, to maintain your hydration and follow-up with your primary care. Prescriptions: Docusate Sodium [Colace 100 mg Capsule] 100 mg PO BID #60 capsule Referrals: CHAU PULIDO MD [Primary Care Provider] - Follow up in 3-5 days
[2018-11-30 17:42] VITALS: BP 134/76
== END 2018-11-30 17:56 | disposition home or self-care (01) ==
LOC: ER 14:13
DX: K59.00 Constipation, unspecified (principal); R33.9 Retention of urine, unspecified; I10 Essential (primary) hypertension; Z79.899 Other long term (current) drug therapy; E10.9 Type 1 diabetes mellitus without complications
CPT/HCPCS: 74018; 81001; 99283

== ENCOUNTER → 2019-01-04 | Outpatient (CLI) | payer OTHER, MEDICARE ==
[2019-01-04 06:26] LABS: ABSOLUTE BASOPHILS # (AUTO) 0.1 10^3/uL (0.0-0.2); ABSOLUTE EOSINOPHILS # (AUTO) 0.2 10^3/uL (0.0-0.6); ABSOLUTE LYMPHOCYTES (AUTO) 2.6 10^3/uL (0.5-4.7); ABSOLUTE MONOCYTES (AUTO) 0.6 10^3/uL (0.1-1.4); ABSOLUTE NEUT (AUTO) 6.7 10^3/uL (1.7-8.2); BASOPHILS % (AUTO) 0.8 % (0-2); EOSINOPHILS % (AUTO) 2.1 % (0-6); HEMATOCRIT 44.3 % (37.9-51.0); HEMOGLOBIN 15.2 g/dL (13.5-17.0); LYMPHOCYTES % (AUTO) 25.9 % (13-45); MEAN CORPUSCULAR HGB CONC 34.3 g/dL (32.0-36.0); MEAN CORPUSCULAR VOLUME 90 fl (80-97); MONOCYTES % (AUTO) 5.5 % (3-13); PLATELET COUNT 264 10^3/uL (150-450); RED BLOOD COUNT 4.91 10^6/uL (4.35-5.55); RED CELL DISTRIBUTION WIDTH 12.8 % (11.5-14.0); SEGMENTED NEUTROPHILS % (AUTO) 65.7 % (42-78); TOTAL CELLS COUNTED % (AUTO) 100 %; WHITE BLOOD COUNT 10.2 10^3/uL (4.0-10.5)
[2019-01-04 06:43] LABS: ALANINE AMINOTRANSFERASE 24 U/L (21-72); ALBUMIN 4.5 g/dL (3.5-5.0); ALKALINE PHOSPHATASE 64 U/L (38-126); ANION GAP 11 (5-19); ASPARTATE AMINO TRANSFERASE 20 U/L (17-59); BILIRUBIN,DIRECT 0.3 mg/dL (0.0-0.4); BILIRUBIN,TOTAL 0.8 mg/dL (0.2-1.3); BLOOD UREA NITROGEN 27 mg/dL (7-20); CARBON DIOXIDE 29 mmol/L (22-30); CHLORIDE 95 mmol/L (98-107); CHOLESTEROL 233.09 mg/dL (0-200); POTASSIUM 4.8 mmol/L (3.6-5.0); SODIUM 134.8 mmol/L (137-145); TOTAL PROTEIN 7.1 g/dL (6.3-8.2); TRIGLYCERIDES 445 mg/dL (<150)
[2019-01-04 06:54] LABS: DIRECT LDL 109 mg/dL (<100)
[2019-01-04 07:56] LABS: CALCIUM 13.7 mg/dL (8.4-10.2)
[2019-01-04 07:57] LABS: GLUCOSE 402 mg/dL (75-110)
== END ==
LOC: LAB 06:07
PROVIDERS: ATTEND Internal Medicine
DX: I25.10 Atherosclerotic heart disease of native coronary artery without angina pectoris (principal); E11.51 Type 2 diabetes mellitus with diabetic peripheral angiopathy without gangrene; E78.5 Hyperlipidemia, unspecified; K21.9 Gastro-esophageal reflux disease without esophagitis
CPT/HCPCS: 36415; 80053; 80061; 83036; 84443; 85025

== ENCOUNTER → 2019-04-10 | Outpatient (CLI) | payer MEDICARE, OTHER ==
--- NOTE | 2019-04-10 10:45 | RADIOLOGY REPORT (SQ) ---
EXAM DESCRIPTION: MRI HEAD WITHOUT COMPLETED DATE/TIME: 04/10/2019 10:29 am REASON FOR STUDY: I63.9 CEREBRAL INFARCTION, UNSPECIFIED I63.9 CEREBRAL INFARCTION, UNSPECIFIED COMPARISON: CT brain 09/02/2018, 11/07/2016 TECHNIQUE: Multiplanar imaging includes non-contrasted T1, T2, FLAIR, and diffusion with ADC map seq uences. Images stored on PACS. LIMITATIONS: None. FINDINGS: ANATOMY: No anomalies. Normal vascular flow voids. Pituitary fossa normal. CSF SPACES: Normal in size and contour. No hemorrhage. CEREBRUM: Sulci and gyri normal in size and contour. Normal white matter signal on FLAIR imaging. No evidence of hemorrhage, mass, or extraaxial fluid collection. POSTERIOR FOSSA: No signal alteration. No hemorrhage. No edema, masses or mass effect. Internal kalia tory canals, cerebello-pontine angles, mastoids normal. DIFFUSION IMAGING: Negative for acute or sub-acute infarction. ORBITS: No masses. Globes normal. PARANASAL SINUSES: No fluid levels. Mucosa normal. OTHER: No other significant finding. IMPRESSION: NORMAL MRI OF THE BRAIN WITHOUT INTRAVENOUS GADOLINIUM CONTRAST. EVIDENCE OF ACUTE STROKE: NO. TECHNICAL DOCUMENTATION: JOB ID: [id number] [employer]- All Rights Reserved Reading location - IP/workstation name: [email or web address]
== END ==
LOC: RAD 09:30
PROVIDERS: ATTEND Internal Medicine
DX: I63.9 Cerebral infarction, unspecified (principal)
CPT/HCPCS: 70551

== ENCOUNTER → 2019-04-25 | Outpatient (CLI) | payer MEDICARE, OTHER ==
[2019-04-25 08:30] LABS: ABSOLUTE EOSINOPHILS # (AUTO) 0.3 10^3/uL (0.0-0.6); ABSOLUTE LYMPHOCYTES (AUTO) 1.9 10^3/uL (0.5-4.7); ABSOLUTE MONOCYTES (AUTO) 0.4 10^3/uL (0.1-1.4); ABSOLUTE NEUT (AUTO) 3.4 10^3/uL (1.7-8.2); BASOPHILS % (AUTO) 0.5 % (0-2); EOSINOPHILS % (AUTO) 4.3 % (0-6); HEMATOCRIT 38.8 % (37.9-51.0); HEMOGLOBIN 13.6 g/dL (13.5-17.0); MEAN CORPUSCULAR HEMOGLOBIN 30.8 pg (27.0-33.4); MEAN CORPUSCULAR HGB CONC 34.9 g/dL (32.0-36.0); MEAN CORPUSCULAR VOLUME 88 fl (80-97); MONOCYTES % (AUTO) 7.1 % (3-13); PLATELET COUNT 212 10^3/uL (150-450); RED CELL DISTRIBUTION WIDTH 12.9 % (11.5-14.0); SEGMENTED NEUTROPHILS % (AUTO) 57.1 % (42-78); TOTAL CELLS COUNTED % (AUTO) 100 %
[2019-04-25 08:36] LABS: ALKALINE PHOSPHATASE 45 U/L (38-126); ANION GAP 10 (5-19); ASPARTATE AMINO TRANSFERASE 30 U/L (17-59); BILIRUBIN,DIRECT 0.2 mg/dL (0.0-0.4); BILIRUBIN,TOTAL 0.5 mg/dL (0.2-1.3); BLOOD UREA NITROGEN 12 mg/dL (7-20); CALCIUM 9.2 mg/dL (8.4-10.2); CARBON DIOXIDE 25 mmol/L (22-30); CHLORIDE 105 mmol/L (98-107); GLUCOSE 118 mg/dL (75-110); TOTAL PROTEIN 6.7 g/dL (6.3-8.2)
== END ==
LOC: OD 07:16
PROVIDERS: ATTEND Internal Medicine
DX: E11.9 Type 2 diabetes mellitus without complications (principal); I10 Essential (primary) hypertension; I25.10 Atherosclerotic heart disease of native coronary artery without angina pectoris
CPT/HCPCS: 36415; 80053; 83036; 85025

== ENCOUNTER 2019-06-13 08:12 | Day surgery (SDC) | payer MEDICARE, OTHER ==
[~2019-06-13 08:12] MED LIST changes: -CEFAZOLIN 2 GM/D5W RTU 2 GM/50 ML RTUPB IV PRN; +FENTANYL CITRATE INJ/PF 100 MCG/2 ML AMPUL ONE; +KETOROLAC TROMETHAMINE 0.45% 4 DROP/0.4 ML DROPERETTE OS PRN; -LIDOCAINE 0.5% INJ-PF (5 MG/ML) 50 ML SDV SUBCUT PRN; +MIDAZOLAM 2 MG/2 ML INJ ONE; -NORMAL SALINE 1000 ML (RENAL PATIENTS) IV PRN; +ONDANSETRON HCL INJ/PF 4 MG/2 ML SDV ONE
[2019-06-13] MEDS: TROPICAMIDE 1% OPH SOLN 15 ML OS PRN ×3 (08:50→09:11)
[2019-06-13] MEDS: TETRACAINE HCL 0.5% OPH SOLN 4 ML OS PRN ×4 (08:50→09:39)
[2019-06-13] MEDS: CYCLOPENTOLATE 0.2%/PHENYLEPHRINE 1% OPH SOLN 2 ML OS PRN ×3 (08:50→09:11)
[2019-06-13] MEDS: BESIFLOXACIN HCL 0.6% OPH SUSP 5 ML BOTTLE OS PRN ×4 (08:50→10:02)
[2019-06-13] MEDS: CHONDR SU A NA/HYALUR INTRAOC KIT (SURGICARE) ONE ×2 (09:52)
[2019-06-13] MEDS: LIDOCAINE 1%/PHENYLEPHRINE 1.5% 1 ML VIAL ONE ×2 (09:52)
[2019-06-13] MEDS: EPINEPHRINE INJ/PF 1 MG/1 ML AMPULE ONE ×2 (09:52)
[2019-06-13] MEDS: DORZOLAMIDE HCL 2%/TIMOLOL MALEAT 0.5% OPH SOLN 10 ML OS PRN ×2 (10:02)
--- NOTE | 2019-06-14 07:43 | Operative Report ---
Operative Report-[facility] Operative Report: DATE OF SURGERY: 06/13/2019 PREOPERATIVE DIAGNOSIS: Cataracts, left eye POSTOPERATIVE DIAGNOSIS: Cataract, left eye OPERATION: Cataract extraction with insertion of an IOL of the left eye. Intraocular Lens Model: [20.0 sn60wf] Reason for surgery is had difficulty seeing up close for reading SURGEON: Moise Mandel MD ANESTHESIA: Topical PROCEDURE: After obtaining appropriate consent, the patient's left eye was prepped and draped in a sterile fashion as well as the surgeon in the sterile manner and cataract surgery was started. First a paracentesis blade was used to make a side-port incision. Viscoelastic was used to inflate the anterior chamber. Next a 2.4 mm incision was made with a 2.4 mm blade, clear corneal temporarily. A continuous capsulorrhexis was made using a cystotome and Utrata forceps. Following this hydrodissection was carried out to make commands fully loose and mobile and it was rotated 90 degrees. Following this, a divide and conquer technique was used to phacoemulsify the lens. The remaining cortex was removed with an irrigation/aspiration. Provisc was instilled into the capsular bag to inflate the bag.The intracular lens was placed. The remaining viscoelastic material was removed with irrigation/aspiration. Following this, the incision was found to be watertight. Besivance and Cosopt was instilled into the eye and a protective shield was placed over the eye. The patient was turned to the postoperative recovery in a stable condition.
== END 2019-06-13 10:50 | disposition home or self-care (01) ==
LOC: SC 08:12
PROVIDERS: ATTEND Internal Medicine
DX: H25.13 Age-related nuclear cataract, bilateral (principal); H31.093 Other chorioretinal scars, bilateral; H43.811 Vitreous degeneration, right eye; H35.3132 Nonexudative age-related macular degeneration, bilateral, intermediate dry stage; E11.9 Type 2 diabetes mellitus without complications; I10 Essential (primary) hypertension
CPT/HCPCS: 66984; 82962; 00142; V2632; J2250; J3490 ×2; A9270; J0171; J3010; J2405; J2370; 142

== ENCOUNTER 2019-07-20 08:07 | Day surgery (SDC) | payer MEDICARE, OTHER ==
[~2019-07-20 08:07] MED LIST changes: -FENTANYL CITRATE INJ/PF 100 MCG/2 ML AMPUL ONE; +KETOROLAC TROMETHAMINE 0.45% 4 DROP/0.4 ML DROPERETTE OD PRN; -KETOROLAC TROMETHAMINE 0.45% 4 DROP/0.4 ML DROPERETTE OS PRN; -MIDAZOLAM 2 MG/2 ML INJ ONE; -ONDANSETRON HCL INJ/PF 4 MG/2 ML SDV ONE
[2019-07-20] MEDS: CYCLOPENTOLATE 0.2%/PHENYLEPHRINE 1% OPH SOLN 2 ML OD PRN ×3 (08:57→09:20)
[2019-07-20] MEDS: BESIFLOXACIN HCL 0.6% OPH SUSP 5 ML BOTTLE OD PRN ×4 (08:57→09:59)
[2019-07-20] MEDS: TETRACAINE HCL 0.5% OPH SOLN 4 ML OD PRN ×4 (08:57→09:36)
[2019-07-20] MEDS: TROPICAMIDE 1% OPH SOLN 15 ML OD PRN ×3 (08:57→09:20)
[2019-07-20] MEDS ORDERED: FENTANYL CITRATE INJ/PF 100 MCG/2 ML AMPUL ONE (09:15)
[2019-07-20] MEDS ORDERED: MIDAZOLAM 2 MG/2 ML INJ ONE (09:15)
[2019-07-20] MEDS: EPINEPHRINE INJ/PF 1 MG/1 ML AMPULE ONE ×2 (09:48)
[2019-07-20] MEDS: LIDOCAINE 1%/PHENYLEPHRINE 1.5% 1 ML VIAL ONE ×2 (09:48)
[2019-07-20] MEDS: CHONDR SU A NA/HYALUR INTRAOC KIT (SURGICARE) ONE ×2 (09:48)
[2019-07-20] MEDS: DORZOLAMIDE HCL 2%/TIMOLOL MALEAT 0.5% OPH SOLN 10 ML OD PRN ×2 (09:59)
--- NOTE | 2019-07-20 13:25 | Operative Report ---
Operative Report-[facility] Operative Report: DATE OF SURGERY: 07/10/2019 PREOPERATIVE DIAGNOSIS: Cataract, right eye POSTOPERATIVE DIAGNOSIS: Cataract, right eye OPERATION: Cataract extraction with insertion of an IOL of the right eye. Intraocular Lens Model: [20.5 sn60wf] Surgeries for difficulty reading small print SURGEON: Moise Mandel MD ANESTHESIA: Topical PROCEDURE: After obtaining appropriate consent, the patient's right eye was prepped and draped in a sterile fashion as well as the surgeon in the sterile manner and cataract surgery was started. First a paracentesis blade was used to make a side-port incision. Viscoelastic was used to inflate the anterior chamber. Next a 2.4 mm incision was made with a 2.4 mm blade, clear corneal temporarily. A continuous capsulorrhexis was made using a cystotome and Utrata forceps. Following this hydrodissection was carried out to make the nuvia fully loose and mobile and it was rotated. Following this, a divide and conquer technique was used to phacoemulsify the nuvia. The remaining cortex was removed with an irrigation/aspiration. Provisc was instilled into the capsular bag to inflate the bag. The intraocular lens was placed. The remaining viscoelastic material was removed with irrigation/aspiration. Following this, the incision was found to be watertight. Besivance and Cosopt was instilled into the eye and a protective shield was placed over the eye. The patient was reurned to the postoperative recovery in a stable condition.
== END 2019-07-20 10:31 | disposition home or self-care (01) ==
LOC: SC 08:07
PROVIDERS: ATTEND Internal Medicine
DX: H25.811 Combined forms of age-related cataract, right eye (principal); Z96.1 Presence of intraocular lens; Z79.01 Long term (current) use of anticoagulants; I10 Essential (primary) hypertension; E11.9 Type 2 diabetes mellitus without complications; Z79.84 Long term (current) use of oral hypoglycemic drugs; Z79.4 Long term (current) use of insulin; Z79.02 Long term (current) use of antithrombotics/antiplatelets; Z79.82 Long term (current) use of aspirin; I49.9 Cardiac arrhythmia, unspecified
CPT/HCPCS: 66984; 82962; 00142; V2632; J2250; J3490 ×2; A9270; J0171; J3010; J2370; 142

== ENCOUNTER → 2020-01-22 | Outpatient (CLI) | payer MEDICARE, OTHER ==
[2020-01-22 08:33] LABS: ABSOLUTE BASOPHILS # (AUTO) 0.1 10^3/uL (0.0-0.2); ABSOLUTE EOSINOPHILS # (AUTO) 0.2 10^3/uL (0.0-0.6); ABSOLUTE LYMPHOCYTES (AUTO) 2.1 10^3/uL (0.5-4.7); ABSOLUTE MONOCYTES (AUTO) 0.5 10^3/uL (0.1-1.4); ABSOLUTE NEUT (AUTO) 3.2 10^3/uL (1.7-8.2); BASOPHILS % (AUTO) 0.9 % (0-2); EOSINOPHILS % (AUTO) 3.8 % (0-6); HEMATOCRIT 41.3 % (37.9-51.0); HEMOGLOBIN 14.7 g/dL (13.5-17.0); LYMPHOCYTES % (AUTO) 34.8 % (13-45); MEAN CORPUSCULAR HEMOGLOBIN 31.6 pg (27.0-33.4); MEAN CORPUSCULAR HGB CONC 35.6 g/dL (32.0-36.0); MEAN CORPUSCULAR VOLUME 89 fl (80-97); MONOCYTES % (AUTO) 7.7 % (3-13); PLATELET COUNT 210 10^3/uL (150-450); RED BLOOD COUNT 4.64 10^6/uL (4.35-5.55); RED CELL DISTRIBUTION WIDTH 12.6 % (11.5-14.0); SEGMENTED NEUTROPHILS % (AUTO) 52.8 % (42-78); TOTAL CELLS COUNTED % (AUTO) 100 %; WHITE BLOOD COUNT 6.1 10^3/uL (4.0-10.5)
[2020-01-22 09:31] LABS: ALBUMIN 4.2 g/dL (3.5-5.0); ALKALINE PHOSPHATASE 64 U/L (38-126); ANION GAP 9 (5-19); ASPARTATE AMINO TRANSFERASE 37 U/L (17-59); BILIRUBIN,TOTAL 0.6 mg/dL (0.2-1.3); BLOOD UREA NITROGEN 16 mg/dL (7-20); CALCIUM 9.3 mg/dL (8.4-10.2); CARBON DIOXIDE 26 mmol/L (22-30); CHLORIDE 102 mmol/L (98-107); CHOLESTEROL 257.17 mg/dL (0-200); GLUCOSE 161 mg/dL (75-110); POTASSIUM 4.2 mmol/L (3.6-5.0); TOTAL PROTEIN 6.9 g/dL (6.3-8.2)
[2020-01-22 09:42] LABS: DIRECT LDL 57 mg/dL (<100)
[2020-01-22 09:46] LABS: TRIGLYCERIDES 1015 mg/dL (<150)
== END ==
LOC: OD 07:13
PROVIDERS: ATTEND Internal Medicine
DX: E11.9 Type 2 diabetes mellitus without complications (principal); I10 Essential (primary) hypertension; R53.83 Other fatigue; E78.5 Hyperlipidemia, unspecified; I25.10 Atherosclerotic heart disease of native coronary artery without angina pectoris
CPT/HCPCS: 36415; 80053; 80061; 83036; 84443; 85025

== ENCOUNTER 2020-03-25 07:26 | Observation (INO) | payer MEDICARE, OTHER ==
[2020-03-25 08:05] LABS: ABSOLUTE BASOPHILS # (AUTO) 0.1 10^3/uL (0.0-0.2); ABSOLUTE EOSINOPHILS # (AUTO) 0.3 10^3/uL (0.0-0.6); ABSOLUTE LYMPHOCYTES (AUTO) 2.1 10^3/uL (0.5-4.7); ABSOLUTE MONOCYTES (AUTO) 0.7 10^3/uL (0.1-1.4); ABSOLUTE NEUT (AUTO) 6.4 10^3/uL (1.7-8.2); BASOPHILS % (AUTO) 0.6 % (0-2); EOSINOPHILS % (AUTO) 2.9 % (0-6); HEMOGLOBIN 15.1 g/dL (13.5-17.0); LYMPHOCYTES % (AUTO) 21.9 % (13-45); MEAN CORPUSCULAR HEMOGLOBIN 31.4 pg (27.0-33.4); MEAN CORPUSCULAR HGB CONC 34.4 g/dL (32.0-36.0); MEAN CORPUSCULAR VOLUME 91 fl (80-97); MONOCYTES % (AUTO) 6.9 % (3-13); PLATELET COUNT 223 10^3/uL (150-450); RED BLOOD COUNT 4.82 10^6/uL (4.35-5.55); RED CELL DISTRIBUTION WIDTH 12.9 % (11.5-14.0); SEGMENTED NEUTROPHILS % (AUTO) 67.7 % (42-78); TOTAL CELLS COUNTED % (AUTO) 100 %; WHITE BLOOD COUNT 9.5 10^3/uL (4.0-10.5)
[2020-03-25 08:38] LABS: ALBUMIN 4.2 g/dL (3.5-5.0); ALKALINE PHOSPHATASE 53 U/L (38-126); ANION GAP 10 (5-19); ASPARTATE AMINO TRANSFERASE 28 U/L (17-59); BILIRUBIN,DIRECT 0.3 mg/dL (0.0-0.4); BILIRUBIN,TOTAL 0.7 mg/dL (0.2-1.3); BLOOD UREA NITROGEN 18 mg/dL (7-20); CALCIUM 9.2 mg/dL (8.4-10.2); CARBON DIOXIDE 23 mmol/L (22-30); CHLORIDE 104 mmol/L (98-107); CREATINE KINASE 129 U/L (55-170); GLUCOSE 170 mg/dL (75-110); POTASSIUM 4.7 mmol/L (3.6-5.0); TOTAL PROTEIN 7.1 g/dL (6.3-8.2)
--- NOTE | 2020-03-25 08:49 | RADIOLOGY REPORT (SQ) ---
EXAM DESCRIPTION: CHEST SINGLE VIEW IMAGES COMPLETED DATE/TIME: 03/25/2020 8:37 am REASON FOR STUDY: chest pain COMPARISON: 09/13/2015 EXAM PARAMETERS: NUMBER OF VIEWS: One view. TECHNIQUE: Single frontal radiographic view of the chest acquired. RADIATION DOSE: NA LIMITATIONS: None. FINDINGS: LUNGS AND PLEURA: No opacities, masses or pneumothorax. No pleural effusion. MEDIASTINUM AND HILAR STRUCTURES: No masses. Contour normal. HEART AND VASCULAR STRUCTURES: Normal heart size. Vascular calcifications. BONES: No acute findings. HARDWARE: None in the chest. Metallic density overlies proximal right humerus, etiology uncertain. OTHER: No other significant finding. IMPRESSION: NO ACUTE RADIOGRAPHIC FINDING IN THE CHEST. TECHNICAL DOCUMENTATION: JOB ID: [id number] [employer]- All Rights Reserved Reading location - IP/workstation name: [email or web address]
[2020-03-25 08:50] LABS: CREATINE KINASE MB 4.47 ng/mL (<4.55)
--- NOTE | 2020-03-25 08:56 | EKG REPORT ---
SEVERITY:- ABNORMAL ECG - SINUS RHYTHM VENTRICULAR BIGEMINY FIRST DEGREE AV BLOCK BORDERLINE T WAVE ABNORMALITIES : Confirmed by: Martita Burnett MD 25-Mar-2020 08:55:37
[2020-03-25 08:58] LABS: TROPONIN I < 0.012 ng/mL
[2020-03-25 10:16] LABS: APPEARANCE,URINE CLEAR; BILIRUBIN,URINE NEGATIVE (NEGATIVE); COLOR,URINE YELLOW; GLUCOSE, URINE >=500 mg/dL (NEGATIVE); KETONES,URINE NEGATIVE (NEGATIVE); PROTEIN,URINE NEGATIVE (NEGATIVE); URINE SPECIFIC GRAVITY 1.024; UROBILINOGEN,URINE NEGATIVE mg/dL (<2.0)
[2020-03-25] MEDS ORDERED: ASPIRIN 81 MG TABLET, CHEWABLE PO ONE (10:50)
--- NOTE | 2020-03-25 14:05 | ER Document Report ---
Entered by RHODA TELLES SCRIBE 03/25/20 1100 Acting as scribe for:DRE HUNT MD ED Cardiac - General Chief Complaint: Chest Pain Stated Complaint: CHEST PAIN Time Seen by Provider: 03/25/20 08:47 Primary Care Provider: CHAU PULIDO MD [Primary Care Provider] - Follow up as needed Information source: Patient Notes: This 75 year old male patient presents to the emergency department today with intermittent chest pain the past x2-3 weeks. Patient states he has not seen anyone for his chest pain since it is not severe. Patient states he saw his PCP x20 days ago for a routine check-up. Patient reports a history of x7 cardiac caths without stents and denies history of heart attacks or strokes. Patient states his last cardiac cath was x10 years ago and has not been told to follow- up after any of them. Patient states he has not had significant chest pain for the past x10 years and reports history of DM, HTN, and high cholesterol. Patient reports left chest pain that began this morning around 5 am, which is now a 3/5 and radiates down his left arm. Denies taking aspirin or his medication for HTN this morning. TRAVEL OUTSIDE OF THE [place] IN LAST 30 DAYS: No - Related Data Allergies/Adverse Reactions: No Known Allergies Allergy (Verified 03/25/20 07:42) Home Medications: Lantus. Lipitor. ASA. Metoprolol. Neurontin. Novolog. Plavix. Prednisone. Protonix. Tamsulosin. Tricor. Jardance. Vasceps Past Medical History - General Information source: Patient - Social History Smoking Status: Never Smoker Cigarette use (# per day): No Chew tobacco use (# tins/day): No Frequency of alcohol use: Occasional Drug Abuse: None Family History: Reviewed & Not Pertinent Patient has homicidal ideation: No - Past Medical History Cardiac Medical History: Reports: Hx Hypercholesterolemia, Hx Hypertension - on meds Denies: Hx Heart Attack Neurological Medical History: Denies: Hx Cerebrovascular Accident Endocrine Medical History: Reports: Hx Diabetes Mellitus Type 1, Hx Diabetes Mellitus Type 2 GI Medical History: Reports: Hx Gastroesophageal Reflux Disease Musculoskeletal Medical History: Reports Hx Arthritis - Neck Past Surgical History: Reports: Hx Abdominal Surgery, Hx Cardiac Catheterization - x7, Hx Orthopedic Surgery - knee, shoulder, L hand - Immunizations Hx Diphtheria, Pertussis, Tetanus Vaccination: Yes Hx Pneumococcal Vaccination: 05/16/15 Review of Systems - Review of Systems Constitutional: No symptoms reported EENT: No symptoms reported Cardiovascular: See HPI, Chest pain - L Respiratory: No symptoms reported Gastrointestinal: No symptoms reported Genitourinary: No symptoms reported Male Genitourinary: No symptoms reported Musculoskeletal: See HPI Skin: No symptoms reported Hematologic/Lymphatic: No symptoms reported Neurological/Psychological: No symptoms reported -: Yes All other systems reviewed and negative Physical Exam - Vital signs Vitals: Temp Pulse Resp BP Pulse Ox 97.4 F 78 16 174/64 H 100 03/25/20 07:30 03/25/20 07:30 03/25/20 07:30 03/25/20 07:30 03/25/20 07:30 - General General appearance: Appears well, Alert - HEENT Head: Normocephalic, Atraumatic Eyes: Normal Pupils: PERRL - Respiratory Respiratory status: No respiratory distress Chest status: Nontender Chest palpation: Normal Notes: Diminished breath sounds in bases bilaterally. - Cardiovascular Rhythm: Regular Heart sounds: Normal auscultation Murmur: No - Abdominal Inspection: Normal Distension: Distended, Fluid wave - mild Bowel sounds: Normal Tenderness: Nontender - Extremities General upper extremity: Normal inspection. No: Edema General lower extremity: Normal inspection. No: Edema - Neurological Neuro grossly intact: Yes Cognition: Normal Orientation: AAOx4 Speech: Normal - Psychological Associated symptoms: Normal affect, Normal mood - Skin Skin Temperature: Warm Skin Moisture: Dry Skin Color: Normal Course - Re-evaluation Re-evalutation: 03/25/20 13:57 Patient resting comfortably not showing any signs of distress at this time continues to be pain-free at this time. Patient still has too many to count PVCs per minute without any consecutive beats. Patient has shown evidence of bigeminy and trigeminy and other irregular occurrences of PVCs more than the usual allowance. Case has been discussed with Dr. Darius Menon heavy equipment service technician of the day who is in agreement that patient does warrant an echocardiogram and overnight stay in the hospital with a stress test in the mo rning. Patient has agreed to the admission. Case has been discussed with the hospitalist El Koehler who will admit patient to the hospital. - Vital Signs Vital signs: Temp Pulse Resp BP Pulse Ox 97.4 F 78 15 154/80 H 97 03/25/20 07:30 03/25/20 07:30 03/25/20 11:07 03/25/20 11:07 03/25/20 11:07 03/25/20 14:00 Vital signs stable - Laboratory Result Diagrams: 03/25/20 07:53 03/25/20 07:53 Laboratory results interpreted by me: 03/25/20 03/25/20 07:53 09:58 Sodium 136.5 L Creatinine 1.28 H Est GFR (MDRD) Non-Af 54 L Glucose 170 H Urine Glucose (UA) >=500 H 03/25/20 14:01 Laboratories essentially within normal limits except for a creatinine of 1.28 and sodium 136 and glucose of 170 patient has a diabetic on and takes insulin shots. Patient's troponin has been -0.012 x 2 and patient is chest pain-free at this time however he still has frequent PVCs. - Diagnostic Test Radiology reviewed: Image reviewed, Reports reviewed Radiology results interpreted by me: 03/25/20 14:01 Chest x-ray shows no acute process no infiltrates - EKG Interpretation by Me Additional EKG results interpreted by me: 03/25/20 14:03 Twelve-lead EKG shows normal sinus rhythm rate of 79 ventricular bigeminy noted. First-degree AV block. And borderline T wave abnormalities. No acute STEMI. Discharge - Discharge Clinical Impression: Chest pain, Ventricular bigeminy, Diabetes Condition: Good Disposition: ADMITTED OBSERVATION Admitting Provider: ARCHIE Koehler Unit Admitted: Telemetry Referrals: CHAU PULIDO MD [Primary Care Provider] - Follow up as needed I personally performed the services described in the documentation, reviewed and edited the documentation which was dictated to the scribe in my presence, and it accurately records my words and actions.
[2020-03-25] MEDS ORDERED: ACETAMINOPHEN 325 MG TABLET PO PRN (14:55)
--- NOTE | 2020-03-25 15:09 | PDOC H&P ---
History of Present Illness Admission Date/PCP: CHAU PULIDO MD Patient complains of: Chest pain intermittent for approximately 2 weeks History of Present Illness: CHAU ANDERSON is a 75 year old male with PMH significant for CAD, HTN, dyslipidemia, DM II, BPH, and GERD who presented to the ED with complaints of chest pain. According to the patient he has been having intermittent chest pain for approximately 2 weeks time. This morning he awoke and again had chest pain and decided that it was time for him to have this "checked out". Of note, the patient reports that he has had 7 cardiac catheterizations in the past. The ED an EKG was completed which did not reveal acute ST/T wave changes consistent with myocardial infarction. A troponin was also assessed which was negative x2. Dr. Menon of cardiology was consulted in the ED and he requested that the patient be admitted for observation, have an echocardiogram, and he will schedule him for a stress test tomorrow. The hospitalist service was consulted to admit the patient for further evaluation and treatment. Past Medical History Cardiac Medical History: Reports: Hyperlipidema, Hypertension - on meds Denies: Atrial Fibrillation, Congestive Heart Failure, Coronary Artery Disease, DVT, Myocardial Infarction, Peripheral Vascular Disease, Pulmonary Embolism, Heart Murmur Pulmonary Medical History: Denies: Asthma, Bronchitis, Chronic Obstructive Pulmonary Disease (COPD), Intubation, Pneumonia, Respiratory Failure, Sleep Apnea, Tuberculosis EENT Medical History: Reports: None Neurological Medical History: Denies: Hemorrhagic CVA, Ischemic CVA, Migraine, Seizures Endocrine Medical History: Reports: Diabetes Mellitus Type 2 Denies: Hyperthyroidism, Hypothyroidism Renal/ Medical History: Denies: Chronic Kidney Disease, Nephrolithiasis Malignancy Medical History: Denies: None GI Medical History: Reports: Gastroesophageal Reflux Disease Denies: Cirrhosis, Hepatitis, Hiatal Hernia, Peptic Ulcer Disease, Ulcerative Colitis Musculoskeltal Medical History: Reports: Arthritis - Neck Denies: Fibromyalgia, Gout Skin Medical History: Reports: None Psychiatric Medical History: Denies: Alcohol Dependency, Dementia, Depression, General Anxiety Disorder, Substance Abuse, Tobacco Dependency Traumatic Medical History: Reports: None Hematology: Denies: Anemia Infectious Medical History: Reports: None Past Surgical History Past Surgical History: Reports: Cardiac Catheterization - x7, Orthopedic Surgery - knee, shoulder, L hand, Other - GI surgery Denies: Pacemaker Social History Information Source: Patient Lives with: Spouse/Significant other Smoking Status: Never Smoker Electronic Cigarette use?: No Frequency of Alcohol Use: Occasional Hx Recreational Drug Use: No Drugs: None Hx Prescription Drug Abuse: No Family History Family History: Reviewed & Not Pertinent Parental Family History Reviewed: Yes Children Family History Reviewed: Yes Sibling(s) Family History Reviewed.: NA Medication/Allergy Home Medications: Aspirin [Ecotrin 81 mg EC Tablet] 81 mg PO DAILY 12/06/17 Atorvastatin Calcium [Lipitor 40 mg Tablet] 40 mg PO QHS 12/06/17 Insulin Aspart [Novolog Flexpen] 10 units SQ TID 12/06/17 Insulin Glargine,Hum.rec.anlog [Lantus Solostar] 60 unit SQ QHS 12/06/17 Lisinopril [Prinivil 10 mg Tablet] 10 mg PO DAILY 12/06/17 Tamsulosin HCl [Flomax 0.4 mg Cap.sr] 0.4 mg PO DAILY 05/05/19 Fenofibrate Nanocrystallized [Tricor] 145 mg PO DAILY 06/07/19 Empagliflozin [Jardiance] 10 mg PO DAILY 03/25/20 Icosapent Ethyl [Vascepa] 2 gm PO BID 03/25/20 Allergies/Adverse Reactions: No Known Allergies Allergy (Verified 03/25/20 07:42) Review of Systems Constitutional: ABSENT: anorexia, chills, fatigue, fever(s), headache(s), night sweats, weakness, weight gain, weight loss Eyes: ABSENT: visual disturbances Ears: PRESENT: other - Changes extremely [place]. ABSENT: hearing changes Nose, Mouth, and Throat: ABSENT: headache(s), sore throat, vertigo Cardiovascular: PRESENT: chest pain. ABSENT: dyspnea on exertion, edema, orthropnea, palpitations Respiratory: ABSENT: cough, dyspnea, hemoptysis, sputum Gastrointestinal: PRESENT: heartburn. ABSENT: abdominal pain, coffee ground emesis, constipation, diarrhea, dysphagia, hematemesis, hematochezia, melena, nausea, vomiting Integumentary: ABSENT: diaphoresis Neurological: ABSENT: abnormal gait, abnormal movements, abnormal speech, confusion, convulsions, dizziness, focal weakness, frequent falls, lack of coordination, memory loss, numbness, paresthesias, syncope, tremor(s), weakness Psychiatric: ABSENT: anxiety, depression, homidical ideation, suicidal ideation Endocrine: ABSENT: cold intolerance, heat intolerance, polydipsia, polyphagia, polyuria Hematologic/Lymphatic: ABSENT: easy bleeding, easy bruising Physical Exam Vital Signs: Temp Pulse Resp BP Pulse Ox 97.4 F 78 15 154/80 H 97 03/25/20 07:30 03/25/20 07:30 03/25/20 11:07 03/25/20 11:07 03/25/20 11:07 Intake & Output 03/24/20 03/25/20 03/26/20 06:59 06:59 06:59 Weight 75.9 kg General appearance: PRESENT: no acute distress, well-developed, well-nourished Head exam: PRESENT: atraumatic, normocephalic Eye exam: PRESENT: conjunctiva pink, PERRLA. ABSENT: scleral icterus Ear exam: PRESENT: normal external ear exam Mouth exam: PRESENT: moist, tongue midline Neck exam: ABSENT: JVD, lymphadenopathy, thyromegaly Respiratory exam: PRESENT: clear to auscultation noelle, symmetrical, unlabored. ABSENT: accessory muscle use Cardiovascular exam: PRESENT: irregular rhythm, +S1, +S2, other - Sinus rhythm with frequent VPBs Pulses: PRESENT: normal carotid pulses, normal radial pulses, +1 pedal pulses bilateral Vascular exam: PRESENT: normal capillary refill GI/Abdominal exam: PRESENT: normal bowel sounds, soft. ABSENT: distended, tenderness Rectal exam: PRESENT: deferred Extremities exam: ABSENT: calf tenderness, clubbing, pedal edema Musculoskeletal exam: PRESENT: ambulatory Neurological exam: PRESENT: alert, awake, oriented to person, oriented to place, oriented to time, oriented to situation, CN II-XII grossly intact, other - Extremely [place]. ABSENT: motor sensory deficit Psychiatric exam: PRESENT: appropriate affect, normal mood. ABSENT: agitated, anxious Skin exam: PRESENT: dry, normal color, warm Results Laboratory Results: 03/25/20 07:53 03/25/20 07:53 03/25/20 03/25/20 03/25/20 07:53 07:53 09:58 WBC 9.5 RBC 4.82 Hgb 15.1 Hct 44.0 MCV 91 MCH 31.4 MCHC 34.4 RDW 12.9 Plt Count 223 Seg Neutrophils % 67.7 Sodium 136.5 L Potassium 4.7 Chloride 104 Carbon Dioxide 23 Anion Gap 10 BUN 18 Creatinine 1.28 H Est GFR ( Amer) > 60 Glucose 170 H Calcium 9.2 Total Bilirubin 0.7 AST 28 Alkaline Phosphatase 53 Total Protein 7.1 Albumin 4.2 Urine Color YELLOW Urine Appearance CLEAR Urine pH 5.0 Ur Specific [place] 1.024 Urine Protein NEGATIVE Urine Glucose (UA) >=500 H Urine Ketones NEGATIVE Urine Blood NEGATIVE Urine RBC (Auto) 0 03/25/20 03/25/20 03/25/20 07:53 07:53 10:55 Creatine Kinase 129 CK-MB (CK-2) 4.47 Troponin I < 0.012 < 0.012 Impressions: Chest X-Ray 03/25/20 00:00 IMPRESSION: NO ACUTE RADIOGRAPHIC FINDING IN THE CHEST. Assessment and Plan - Diagnosis (1) Chest pain Is this a current diagnosis for this admission?: Yes Plan: Serial troponin Check EKG in a.m. Get echocardiogram Cardiology consult with Dr. Menon Plan for stress test in a.m. Continue ASA 81 mg p.o. daily (2) HTN (hypertension) Is this a current diagnosis for this admission?: Yes Plan: Continue metoprolol succinate 50 mg p.o. daily Continue lisinopril 10 mg p.o. daily, will need to monitor renal function and if serum creatinine trends up will stop (3) Dyslipidemia Is this a current diagnosis for this admission?: Yes Plan: Continue atorvastatin 40 mg p.o. daily Continue fenofibrate 145 mg p.o. daily Patient is also on Vascepa 2 gm po bid which is nonformulary, will hold while hospitalized (4) Ventricular bigeminy Is this a current diagnosis for this admission?: Yes Plan: Continue current beta-richard (5) Type 2 diabetes mellitus Is this a current diagnosis for this admission?: Yes Plan: Continue basal (glargine) insulin 60 units subcutaneous nightly Continue prandial (lispro) insulin 10 units subcutaneous TID/AC, hold in a.m. since patient will be npo for cardiac stress test Patient was on empagliflozin [employer], hold Add FS BS with AC/HS SSI correction scale (6) GERD (gastroesophageal reflux disease) Is this a current diagnosis for this admission?: Yes Plan: Continue pantoprazole 40 mg p.o. daily (7) BPH (benign prostatic hyperplasia) Is this a current diagnosis for this admission?: Yes Plan: Continue tamsulosin 0.4 mg p.o. daily - Time Time Spent with patient: 35 or more minutes Medications reviewed and adjusted accordingly: Yes Anticipated Discharge Disposition: Home, Self Care Anticipated Discharge Timeframe: within 48 hours
[2020-03-25] MEDS ORDERED: NORMAL SALINE 1000 ML 1,000 ML IV PRN (17:40)
[2020-03-25] MEDS ORDERED: DEXTROSE 40% GEL 15 GM TUBE PO PRN ×2 (17:42)
[2020-03-25] MEDS ORDERED: GLUCAGON,HUMAN RECOMB 1 MG INJ IM PRN (17:42)
[2020-03-25] MEDS ORDERED: DEXTROSE 50%-WATER 25 GM/50 ML DISP.SYRIN IV PRN ×2 (17:42)
[2020-03-25] MEDS ORDERED: (PENDING PHARMACY ID) (Insulin Aspart [Novolog Flexpen] 10 UNITS) SQ SCH (18:00)
[2020-03-25] MEDS ORDERED: INSULIN LISPRO 100 UNIT/ML 3 ML VIAL SUBCUT SCH (18:30)
[2020-03-25] MEDS ORDERED: INSULIN GLARGINE HUM REC ANLOG 60 UNIT SQ SCH (22:00)
[2020-03-25] MEDS: INSULIN GLARGINE,HUM.REC.ANLOG 1,000 UNIT/10 ML VIAL SUBCUT SCH (22:24)
[2020-03-25] MEDS: INSULIN LISPRO 100 UNIT/ML 3 ML VIAL SUBCUT SCH (22:25)
[2020-03-25] MEDS: ATORVASTATIN CALCIUM 40 MG TABLET PO SCH (22:26)
[2020-03-25] MEDS: HEPARIN SOD (PORCINE) 5,000 UNIT/ML 1 ML VIAL SUBCUT SCH (22:27)
[2020-03-26 04:58] LABS: ANION GAP 9 (5-19); BLOOD UREA NITROGEN 25 mg/dL (7-20); CALCIUM 9.1 mg/dL (8.4-10.2); CARBON DIOXIDE 22 mmol/L (22-30); CHLORIDE 104 mmol/L (98-107); GLUCOSE 150 mg/dL (75-110); POTASSIUM 4.9 mmol/L (3.6-5.0)
[2020-03-26] MEDS: HEPARIN SOD (PORCINE) 5,000 UNIT/ML 1 ML VIAL SUBCUT SCH ×3 (06:12→22:43)
[2020-03-26] MEDS: PANTOPRAZOLE SODIUM 40 MG TABLET.DR PO SCH (06:12)
--- NOTE | 2020-03-26 06:15 | XCELERA REPORT ---
[address] [address] Transthoracic Echocardiogram Report Name: CHAU ANDERSON Age: 75 yrs Gender: Male : 1945 Patient Status: Inpatient Patient Location: [address] [place] [address] Study Date: 03/25/2020 08:53 PM Height: 68 in Weight: 167 lb BSA: 1.9 m2 Procedure: A complete two-dimensional transthoracic echocardiogram was performed (2D, M-mode, spectral and color flow Doppler). The study was technically limited with all images being suboptimal in quality. Images from the parasternal window were difficult to obtain and are suboptimal in quality. The apical views were difficult to obtain and are suboptimal in quality. The subcostal views were difficult to obtain and are suboptimal in quality. Frequent ventricular ectopy during the study. Reason For Study: Chest Pain Ordering Physician: ALFREDO PRESLEY Performed By: Farzana Cardona Interpretation Summary Frequent ventricular ectopy during the study. The left ventricle is normal in size. Left ventricular systolic function is normal. The Ejection Fraction estimate is 60-65%. Doppler measurements suggest impaired left ventricular relaxation, which is associated with grade I/IV or mild diastolic dysfunction. The left ventricular wall motion is normal. Mild MR, trace TR. No prior studies for comparison. MMode/2D Measurements & Calculations RVDd: 2.5 cm LVIDd: 4.5 cm FS: 37.9 % Ao root diam: 3.4 cm IVSd: 1.2 cm LVIDs: 2.8 cm EDV(Teich): 91.7 ml Ao root area: 8.9 cm2 LVPWd: 1.0 cm ESV(Teich): 29.2 ml LA dimension: 3.9 cm EF(Teich): 68.1 % Doppler Measurements & Calculations MV E max macario: MV P1/2t max macario: Ao V2 max: LV V1 max P.0 cm/sec 79.4 cm/sec 146.2 cm/sec 5.6 mmHg MV A max macario: MV P1/2t: 80.1 msec Ao max PG: LV V1 max: 102.7 cm/sec MVA(P1/2t): 2.7 cm2 8.6 mmHg 118.0 cm/sec MV E/A: 0.75 MV dec slope: 290.4 cm/sec2 MV dec time: 0.29 sec PA V2 max: MV P1/2t-pr_phl: 104.1 cm/sec 80.1 msec PA max P.3 mmHg Left Ventricle The left ventricle is normal in size. Left ventricular systolic function is normal. The Ejection Fraction estimate is 60-65%. Doppler measurements suggest impaired left ventricular relaxation, which is associated with grade I/IV or mild diastolic dysfunction. The left ventricular wall motion is normal. Right Ventricle The right ventricle is grossly normal size. The right ventricular systolic function is normal. Atria The right atrium is normal. The left atrial size is normal. Not well visualized. Mitral Valve There is mild mitral leaflet calcification. There is no evidence of mitral valve prolapse. There is no mitral valve stenosis. There is a mild amount of mitral regurgitation. Aortic Valve The aortic valve is mildly calcified. There is no aortic valvular vegetation. There is no aortic valve stenosis. No aortic regurgitation is present. Tricuspid Valve The tricuspid valve is not well visualized, but is grossly normal. There is no tricuspid valve prolapse. There is no tricuspid stenosis. There is a trace amount of tricuspid regurgitation. Pulmonic Valve The pulmonic valve is not well seen, but is grossly normal. There is no vegetation on the pulmonic valve. There is no pulmonic valvular stenosis. There is no pulmonic valvular regurgitation. Great Vessels The inferior vena cava appeared normal and decreased > 50% with respiration (RAP 5-10 mmHg). Effusions There is no pericardial effusion. There is no pleural effusion. : ALFREDO PRESLEY Antonio
[2020-03-26] MEDS: INSULIN LISPRO 100 UNIT/ML 3 ML VIAL SUBCUT SCH ×4 (08:29→22:41)
[2020-03-26] MEDS: FENOFIBRATE NANOCRYSTALLIZED 145 MG TABLET PO SCH (09:44)
[2020-03-26] MEDS: LISINOPRIL 10 MG TABLET PO SCH (09:44)
[2020-03-26] MEDS: ASPIRIN 81 MG TABLET, ENT COATED PO SCH (09:44)
[2020-03-26] MEDS: TAMSULOSIN HCL 0.4 MG CAP.SR.24H PO SCH (09:44)
[2020-03-26] MEDS: METOPROLOL SUCCINATE 50 MG TAB.SR.24H PO SCH (09:44)
--- NOTE | 2020-03-26 12:28 | PDOC CONSULTATION ---
Consultation Consult Date: 03/26/20 Attending physician:: ALFREDO PRESLEY Provider Consulted: DONNIE ACHARYA Consult reason:: CP History of Present Illness Admission Date/PCP: 03/25/20 15:03 CHAU PULIDO MD History of Present Illness: CHAU ANDERSON is a 75 year old male with history of CAD, hypertension, dyslipidemia, type II diabetes, BPH, and GERD who is consulted to our service for further evaluation of chest pain that he has been having intermittently for approximately 2 weeks time. The morning of admission the patient again experienced another episode of chest pain and decided that it was time for him to have this "checked out". Of note, the patient reports that he has had 7 cardiac catheterizations in the past. His EKG in the ER had no ischemic changes but demonstrated frequent PVCs and his troponin had been negative x5. Physical exam on 03/26/20: GENERAL: Pleasant and conversational. Oriented x3 with normal mood. Not in acute distress. Well groomed and well developed. HEENT: Normocephalic, atraumatic. Pupils equal. Sclerae anicteric. Oropharynx moist. NECK: No JVD. No carotid bruits. LUNGS: Clear to auscultation bilaterally. Normal respiratory effort without the use of accessory muscles or intercostal retractions. CARDIOVASCULAR: Regular rate and rhythm, normal S1 and S2 without murmurs, rubs, or gallops. PMI not displaced. ABDOMEN: No masses or tenderness to palpation. No bruit. No splenomegaly or hepatomegaly. No abdominal aorta bruit noted. EXTREMITIES: No edema, no cyanosis, no clubbing. +2 pulses femoral and pedal pulses bilaterally. SKIN: No lesions or rashes. MUSCULOSKELETAL: No chest tenderness to palpation. NEUROLOGIC: Nonfocal. No gross sensory or motor deficits bilateral upper or l ower extremities. Past Medical History Cardiac Medical History: Reports: Hyperlipidema, Hypertension - on meds Denies: Atrial Fibrillation, Congestive Heart Failure, Coronary Artery Disease, DVT, Myocardial Infarction, Peripheral Vascular Disease, Pulmonary Embolism, Heart Murmur Pulmonary Medical History: Denies: Asthma, Bronchitis, Chronic Obstructive Pulmonary Disease (COPD), Intubation, Pneumonia, Respiratory Failure, Sleep Apnea, Tuberculosis EENT Medical History: Reports: None Neurological Medical History: Denies: Hemorrhagic CVA, Ischemic CVA, Migraine, Seizures Endocrine Medical History: Reports: Diabetes Mellitus Type 1, Diabetes Mellitus Type 2 Denies: Hyperthyroidism, Hypothyroidism Renal/ Medical History: Denies: Chronic Kidney Disease, Nephrolithiasis Malignancy Medical History: Denies: None GI Medical History: Reports: Gastroesophageal Reflux Disease Denies: Cirrhosis, Hepatitis, Hiatal Hernia, Peptic Ulcer Disease, Ulcerative Colitis Musculoskeltal Medical History: Reports: Arthritis - Neck Denies: Fibromyalgia, Gout Skin Medical History: Reports: None Psychiatric Medical History: Denies: Alcohol Dependency, Dementia, Depression, General Anxiety Disorder, Substance Abuse, Tobacco Dependency Traumatic Medical History: Reports: None Hematology: Denies: Anemia, Sickle Cell Disease Infectious Medical History: Reports: None Past Surgical History Past Surgical History: Reports: Cardiac Catheterization - x7, Orthopedic Surgery - knee, shoulder, L hand, Other - GI surgery Denies: Pacemaker Social History Lives with: Spouse/Significant other Smoking Status: Never Smoker Electronic Cigarette use?: No Frequency of Alcohol Use: Occasional Hx Recreational Drug Use: No Drugs: None Hx Prescription Drug Abuse: No Family History Family History: Reviewed & Not Pertinent Parental Family History Reviewed: Yes Children Family History Reviewed: Yes Sibling(s) Family History Reviewed.: Yes Medication/Allergy Home Medications: Aspirin [Ecotrin 81 mg EC Tablet] 81 mg PO DAILY 12/06/17 Atorvastatin Calcium [Lipitor 40 mg Tablet] 40 mg PO QHS 12/06/17 Insulin Aspart [Novolog Flexpen] 10 units SQ TID 12/06/17 Insulin Glargine,Hum.rec.anlog [Lantus Solostar] 60 unit SQ QHS 12/06/17 Lisinopril [Prinivil 10 mg Tablet] 10 mg PO DAILY 12/06/17 Tamsulosin HCl [Flomax 0.4 mg Cap.sr] 0.4 mg PO DAILY 05/05/19 Fenofibrate Nanocrystallized [Tricor] 145 mg PO DAILY 06/07/19 Empagliflozin [Jardiance] 10 mg PO DAILY 03/25/20 Icosapent Ethyl [Vascepa] 2 gm PO BID 03/25/20 Allergies/Adverse Reactions: No Known Allergies Allergy (Verified 03/25/20 07:42) Physical Exam Vital Signs: Temp Pulse Resp BP Pulse Ox 97.3 F 71 16 123/75 98 03/26/20 03:57 03/26/20 03:57 03/26/20 03:57 03/26/20 03:57 03/26/20 03:57 Intake & Output 03/24/20 03/25/20 03/26/20 06:59 06:59 06:59 Intake Total 718 Balance 718 Weight 75.9 kg Results Laboratory Results: 03/25/20 07:53 03/26/20 04:19 03/25/20 03/25/20 03/25/20 07:53 07:53 09:58 WBC 9.5 RBC 4.82 Hgb 15.1 Hct 44.0 MCV 91 MCH 31.4 MCHC 34.4 RDW 12.9 Plt Count 223 Seg Neutrophils % 67.7 Sodium 136.5 L Potassium 4.7 Chloride 104 Carbon Dioxide 23 Anion Gap 10 BUN 18 Creatinine 1.28 H Est GFR ( Amer) > 60 Glucose 170 H Calcium 9.2 Magnesium Total Bilirubin 0.7 AST 28 Alkaline Phosphatase 53 Total Protein 7.1 Albumin 4.2 Urine Color YELLOW Urine Appearance CLEAR Urine pH 5.0 Ur Specific [place] 1.024 Urine Protein NEGATIVE Urine Glucose (UA) >=500 H Urine Ketones NEGATIVE Urine Blood NEGATIVE Urine RBC (Auto) 0 03/26/20 04:19 WBC RBC Hgb Hct MCV MCH MCHC RDW Plt Count Seg Neutrophils % Sodium 135.1 L Potassium 4.9 Chloride 104 Carbon Dioxide 22 Anion Gap 9 BUN 25 H Creatinine 1.22 Est GFR ( Amer) > 60 Glucose 150 H Calcium 9.1 Magnesium 2.1 Total Bilirubin AST Alkaline Phosphatase Total Protein Albumin Urine Color Urine Appearance Urine pH Ur Specific [place] Urine Protein Urine Glucose (UA) Urine Ketones Urine Blood Urine RBC (Auto) 03/25/20 03/25/20 03/25/20 07:53 07:53 10:55 Creatine Kinase 129 CK-MB (CK-2) 4.47 Troponin I < 0.012 < 0.012 03/25/20 03/25/20 03/26/20 16:15 22:05 04:19 Creatine Kinase CK-MB (CK-2) Troponin I < 0.012 < 0.012 < 0.012 Impressions: Chest X-Ray 03/25/20 00:00 IMPRESSION: NO ACUTE RADIOGRAPHIC FINDING IN THE CHEST. 03/25/20 07:53 03/26/20 04:19 MCV 91 fl (80-97) 03/25/20 07:53 MCH 31.4 pg (27.0-33.4) 03/25/20 07:53 MCHC 34.4 g/dL (32.0-36.0) 03/25/20 07:53 RDW 12.9 % (11.5-14.0) 03/25/20 07:53 Seg Neutrophils % 67.7 % (42-78) 03/25/20 07:53 Chloride 104 mmol/L (98-107) 03/26/20 04:19 Carbon Dioxide 22 mmol/L (22-30) 03/26/20 04:19 Anion Gap 9 (5-19) 03/26/20 04:19 Est GFR ( Amer) > 60 (>60) 03/26/20 04:19 Glucose 150 mg/dL (75-110) H 03/26/20 04:19 Calcium 9.1 mg/dL (8.4-10.2) 03/26/20 04:19 Magnesium 2.1 mg/dL (1.6-2.3) 03/26/20 04:19 Total Bilirubin 0.7 mg/dL (0.2-1.3) 03/25/20 07:53 AST 28 U/L (17-59) 03/25/20 07:53 Alkaline Phosphatase 53 U/L (38-126) 03/25/20 07:53 Total Protein 7.1 g/dL (6.3-8.2) 03/25/20 07:53 Albumin 4.2 g/dL (3.5-5.0) 03/25/20 07:53 Urine Color YELLOW 03/25/20 09:58 Urine Appearance CLEAR 03/25/20 09:58 Urine pH 5.0 (5.0-9.0) 03/25/20 09:58 Ur Specific [place] 1.024 03/25/20 09:58 Urine Protein NEGATIVE mg/dL (NEGATIVE) 03/25/20 09:58 Urine Glucose (UA) >=500 mg/dL (NEGATIVE) H 03/25/20 09:58 Urine Ketones NEGATIVE mg/dL (NEGATIVE) 03/25/20 09:58 Urine Blood NEGATIVE (NEGATIVE) 03/25/20 09:58 Urine RBC (Auto) 0 /HPF 03/25/20 09:58 03/25/20 03/25/20 03/25/20 07:53 07:53 10:55 Creatine Kinase 129 CK-MB (CK-2) 4.47 Troponin I < 0.012 < 0.012 03/25/20 03/25/20 03/26/20 16:15 22:05 04:19 Creatine Kinase CK-MB (CK-2) Troponin I < 0.012 < 0.012 < 0.012 Current Medication List Generic Name Dose Route Start Last Admin Trade Name Freq PRN Reason Stop Dose Admin Acetaminophen 650 mg 03/25/20 14:55 Tylenol 325 Mg Tablet PO 04/24/20 14:54 Q4HP PRN FOR HEADACHE OR PAIN Aspirin 81 mg 03/26/20 10:00 Ecotrin 81 Mg Ec Tablet PO 04/25/20 09:59 DAILY RUFINA Atorvastatin Calcium 40 mg 03/25/20 22:00 03/25/20 22:26 Lipitor 40 Mg Tablet PO 04/24/20 21:59 40 mg QHS RUFINA Administration Dextrose 12.5 gm 03/25/20 17:42 Dextrose Inj 50% Syringe (25 Gm/50 Ml) IV 04/24/20 17:41 PRN PRN FOR BG 50-69 IN ALERT PATIENT Protocol Dextrose 25 gm 03/25/20 17:42 Dextrose Inj 50% Syringe (25 Gm/50 Ml) IV 04/24/20 17:41 PRN PRN PER PROTOCOL Protocol Fenofibrate 145 mg 03/26/20 10:00 Tricor 145 Mg Tablet PO 04/25/20 09:59 DAILY RUFINA Glucagon 1 mg 03/25/20 17:42 Glucagen Inj 1 Mg Vial IM 04/24/20 17:41 PRN PRN Evaluate for BG < 70 Protocol Glucose 15 gm 03/25/20 17:42 Glutose 40% Gel 15 Gm Tube PO 04/24/20 17:41 PRN PRN FOR BG 50-69 IN ALERT PATIENT Protocol Glucose 30 gm 03/25/20 17:42 Glutose 40% Gel 15 Gm Tube PO 04/24/20 17:41 PRN PRN FOR BG < 50 IN ALERT PATIENT Protocol Heparin Sodium (Porcine) 5,000 unit 03/25/20 22:00 03/25/20 22:27 Heparin Inj 5,000 Units/Ml 1 Ml Vial SUBCUT 04/24/20 21:59 5,000 unit Q8 RUFINA Administration Sodium Chloride 1,000 mls @ 75 mls/hr 03/25/20 17:40 03/25/20 18:23 Nacl 0.9% 1000 Ml Iv Soln IV 04/24/20 17:39 75 mls/hr CONTINUOUS PRN Administration THIS MED IS NOT "PRN" Insulin Glargine 60 unit 03/25/20 22:00 03/25/20 22:24 Lantus Insulin 100 Unit/1 Ml 10 Ml SUBCUT 04/24/20 21:59 60 unit QHS RUFINA Administration Insulin Human Lispro 0 - 12 unit 03/25/20 22:00 03/25/20 22:25 Humalog Insulin 100 Unit/1 Ml 3 Ml Vial SUBCUT 04/24/20 21:59 2 unit ACHS RUFINA Administration Protocol Insulin Human Lispro 10 unit 03/25/20 18:30 03/25/20 18:43 Humalog Insulin 100 Unit/1 Ml 3 Ml Vial SUBCUT 04/24/20 18:29 Not Given AC RUFINA Lisinopril 10 mg 03/26/20 10:00 Prinivil 10 Mg Tablet PO 04/25/20 09:59 DAILY RUFINA Metoprolol Succinate 50 mg 03/26/20 10:00 Toprol Xl 50 Mg Tab.Sr PO 04/25/20 09:59 DAILY RUFINA Pantoprazole Sodium 40 mg 03/26/20 06:[address] Tablet PO 04/25/20 05:59 Q6AM RUFINA Tamsulosin HCl 0.4 mg 03/26/20 10:00 Flomax 0.4 Mg Cap.Sr PO 04/25/20 09:59 DAILY RUFINA Discontinued Medications Generic Name Dose Route Start Last Admin Trade Name Freq PRN Reason Stop Dose Admin Aspirin 324 mg 03/25/20 10:50 03/25/20 11:07 Aspirin 81 Mg Chewable Tablet PO 03/25/20 10:51 324 mg NOW ONE Administration Assessment & Plan - Diagnosis (1) Chest pain Is this a current diagnosis for this admission?: Yes Plan: Poor historian patient with intermittent chest pain with both typical and atypical features in the setting of risk factors of gender, age and diabetes. He ruled out for ACS with negative troponins x5. He remains asymptomatic. His cardiac telemetry only shows frequent PVCs in bigeminy and trigeminy but no sustained ventricular dysrhythmias. Recommendations: -Continue with cardiac telemetry. -Continue with current medical management. -N.p.o. after midnight. -Lexiscan nuclear stress test tomorrow morning. -Echocardiogram to assess for structural heart disease. (2) Dyslipidemia Is this a current diagnosis for this admission?: Yes Plan: I will defer further management to his primary care provider/hospitalist team.
--- NOTE | 2020-03-26 17:11 | EKG REPORT ---
SEVERITY:- ABNORMAL ECG - ATRIAL FIBRILLATION PAIRED VENTRICULAR PREMATURE COMPLEXES NONSPECIFIC T ABNORMALITIES, LATERAL LEADS : Confirmed by: Martita Burnett MD 26-Mar-2020 17:10:00
--- NOTE | 2020-03-26 17:11 | EKG REPORT ---
SEVERITY:- BORDERLINE ECG - SINUS TACHYCARDIA PROBABLE LEFT ATRIAL ABNORMALITY BORDERLINE T ABNORMALITIES, INFERIOR LEADS : Confirmed by: Martita Burnett MD 26-Mar-2020 17:10:05
--- NOTE | 2020-03-26 22:32 | PDOC PROGRESS REPORT ---
Subjective Progress Note for:: 03/26/20 Subjective:: Patient was seen and examined at bedside denies any further episodes of chest pain denies palpitation or shortness of breath Reason For Visit: CHEST PAIN,PVCS Physical Exam Vital Signs: Temp Pulse Resp BP Pulse Ox 97.3 F 79 20 94/58 L 98 03/26/20 16:00 03/26/20 16:00 03/26/20 16:00 03/26/20 16:00 03/26/20 16:00 Intake & Output 03/25/20 03/26/20 03/27/20 06:59 06:59 06:59 Intake Total 718 1150 Balance 718 1150 Weight 73.5 kg General appearance: PRESENT: no acute distress, cooperative Head exam: PRESENT: normocephalic Eye exam: PRESENT: EOMI, PERRLA Mouth exam: PRESENT: moist Neck exam: PRESENT: full ROM. ABSENT: JVD Respiratory exam: PRESENT: clear to auscultation noelle, symmetrical, unlabored Cardiovascular exam: PRESENT: RRR, +S1, +S2 Pulses: PRESENT: normal radial pulses GI/Abdominal exam: PRESENT: normal bowel sounds, soft. ABSENT: tenderness Rectal exam: PRESENT: deferred Extremities exam: ABSENT: +2 edema Musculoskeletal exam: PRESENT: full ROM Neurological exam: PRESENT: alert, awake, oriented to person, oriented to time Psychiatric exam: PRESENT: normal mood Results Laboratory Results: 03/25/20 07:53 03/26/20 04:19 03/26/20 04:19 Sodium 135.1 L Potassium 4.9 Chloride 104 Carbon Dioxide 22 Anion Gap 9 BUN 25 H Creatinine 1.22 Est GFR ( Amer) > 60 Glucose 150 H Calcium 9.1 Magnesium 2.1 03/25/20 03/25/20 03/25/20 07:53 07:53 10:55 Creatine Kinase 129 CK-MB (CK-2) 4.47 Troponin I < 0.012 < 0.012 03/25/20 03/25/20 03/26/20 16:15 22:05 04:19 Creatine Kinase CK-MB (CK-2) Troponin I < 0.012 < 0.012 < 0.012 Impressions: Chest X-Ray 03/25/20 00:00 IMPRESSION: NO ACUTE RADIOGRAPHIC FINDING IN THE CHEST. Assessment and Plan - Diagnosis (1) Chest pain Qualifiers: Ischemic chest pain type: unstable angina pectoris Is this a current diagnosis for this admission?: Yes Plan: Serial troponin negative Check EKG in a.m. Get echocardiogram Cardiology consult with Dr. Menon Patient ate before stress test rescheduled tomorrow Continue ASA 81 mg p.o. daily (2) HTN (hypertension) Is this a current diagnosis for this admission?: Yes Plan: Continue metoprolol succinate 50 mg p.o. daily Continue lisinopril 10 mg p.o. daily (3) Type 2 diabetes mellitus Qualifiers: Diabetes mellitus supervisor long goods insulin use: with supervisor long goods use Is this a current diagnosis for this admission?: Yes Plan: Continue basal (glargine) insulin 60 units subcutaneous nightly Continue prandial (lispro) insulin 10 units subcutaneous TID/AC, hold in a.m. 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 daily Continue fenofibrate 145 mg p.o. daily Patient is also on Vascepa 2 gm po bid which is nonformulary, will hold while hospitalized - Plan Summary Summary: Patient presented with chest pain has a history of coronary artery disease with stents placed in the past. Will be following EKG and troponin has been negative since admission. Patient accidentally ate today that is why stress test has to be rescheduled tomorrow - Time Time Spent with patient: Less than 15 minutes Anticipated Discharge Disposition: Home, Self Care Anticipated Discharge Timeframe: within 24 hours
[2020-03-26] MEDS ORDERED: INSULIN GLARGINE,HUM.REC.ANLOG 1,000 UNIT/10 ML VIAL (PYX) SUBCUT ONE (22:37)
[2020-03-26] MEDS: ATORVASTATIN CALCIUM 40 MG TABLET PO SCH (22:41)
[2020-03-26] MEDS: INSULIN GLARGINE,HUM.REC.ANLOG 1,000 UNIT/10 ML VIAL SUBCUT SCH (22:42)
[2020-03-27] MEDS: HEPARIN SOD (PORCINE) 5,000 UNIT/ML 1 ML VIAL SUBCUT SCH (05:59)
[2020-03-27] MEDS: PANTOPRAZOLE SODIUM 40 MG TABLET.DR PO SCH (06:00)
[2020-03-27] MEDS ORDERED: REGADENOSON INJ 0.4 MG/5 ML DISP.SYRIN IV ONE (10:00)
[2020-03-27] MEDS: INSULIN LISPRO 100 UNIT/ML 3 ML VIAL SUBCUT SCH ×2 (10:21→12:50)
[2020-03-27] MEDS: LISINOPRIL 10 MG TABLET PO SCH (10:28)
[2020-03-27] MEDS: FENOFIBRATE NANOCRYSTALLIZED 145 MG TABLET PO SCH (10:28)
[2020-03-27] MEDS: ASPIRIN 81 MG TABLET, ENT COATED PO SCH (10:28)
[2020-03-27] MEDS: TAMSULOSIN HCL 0.4 MG CAP.SR.24H PO SCH (10:29)
[2020-03-27] MEDS: METOPROLOL SUCCINATE 50 MG TAB.SR.24H PO SCH (10:29)
--- NOTE | 2020-03-27 12:39 | DRAGON STRESS TEST REPORT ---
Name: Dylan Gaxiola : Dec Date: MAR 21 The patient underwent a stress/rest, single isotope SPECT Imaging with pharmacological stress and gated SPECT imaging on for evaluation of chest pain. The patient underwent infusion of regadnoson 0.4mg IV using the standard protocol. The heart rate was 71 beats per minute at baseline and increased to 92 beats during the infusion of regadenoson. The resting blood pressure was 128/76 mm/Hg and decreased to 120/81 mm/Hg, which is a normal response. The patient complained of dyspnea during the procedure. The resting electrocardiogram demonstrated NSR with frequent ventricular ectopy. Stress electrocardiogram is non-diagnostic in the setting of pharmacological stress and demonstrated NSR with frequent ventricular ectopy. Myocardial perfusion imaging was performed at rest following the injection of 11.62 mCi of sestamibi. At peak pharmacolgic effect, the patient was injected with 33.1 mCi of sestamibi. Gating post-stress tomographic imaging was performed 60 minutes after stress. Findings The overall quality of the study is good. Raw images demonstrate significant GI and liver contamination of the inferior wall in both the rest and stress images. Left ventricular cavity is noted to be normal on the rest and stress studies. Resting SPECT images demonstrate homogeneous tracer distribution throughout the myocardium. The stress images reveal homogeneous tracer distribution throughout the myocardium. Gated SPECT imaging reveals normal myocardial thickening and wall motion. The left ventricular ejection fraction was calculated to be 49% however it appear to be >60% on visual inspection. Impression -Myocardial perfusion imaging is normal with the above artifacts. -There is no scintigraphic evidence of ischemia or infarct. -Overall left ventricular systolic function was visually normal without wall motion abnormalities. -There are no prior studies for comparison. MTDD
--- NOTE | 2020-03-27 12:43 | PDOC PROGRESS REPORT ---
Subjective Progress Note for:: 03/27/20 Subjective:: CHAU ANDERSON is a 75 year old male with history of CAD, hypertension, dyslipidemia, type II diabetes, BPH, and GERD who is consulted to our service for further evaluation of chest pain that he has been having intermittently for approximately 2 weeks time. The morning of admission the patient again experienced another episode of chest pain and decided that it was time for him to have this "checked out". Of note, the patient reports that he has had 7 cardiac catheterizations in the past. His EKG in the ER had no ischemic changes but demonstrated frequent PVCs and his troponin had been negative x5. 03/27/2020: The patient had an uneventful night and denies cardiac complaints. His Lexiscan nuclear stress test this morning was normal and without evidence of ischemia or infarct. Physical exam on 03/27/20: GENERAL: Pleasant and conversational. Oriented x3 with normal mood. Not in acute distress. Well groomed and well developed. HEENT: Normocephalic, atraumatic. Pupils equal. Sclerae anicteric. Oropharynx moist. NECK: No JVD. No carotid bruits. LUNGS: Clear to auscultation bilaterally. Normal respiratory effort without the use of accessory muscles or intercostal retractions. CARDIOVASCULAR: Regular rate and rhythm, normal S1 and S2 without murmurs, rubs, or gallops. PMI not displaced. ABDOMEN: No masses or tenderness to palpation. No bruit. No splenomegaly or hepatomegaly. No abdominal aorta bruit noted. EXTREMITIES: No edema, no cyanosis, no clubbing. +2 pulses femoral and pedal pulses bilaterally. SKIN: No lesions or rashes. MUSCULOSKELETAL: No chest tenderness to palpation. NEUROLOGIC: Nonfocal. No gross sensory or motor deficits bilateral upper or lower extremities. Reason For Visit: CHEST PAIN,PVCS Physical Exam Vital Signs: Temp Pulse Resp BP Pulse Ox 97.3 F 29 L 18 94/54 L 98 03/27/20 07:59 03/27/20 07:59 03/27/20 07:59 03/27/20 07:59 03/27/20 07:59 Intake & Output 03/26/20 03/27/20 03/28/20 06:59 06:59 06:59 Intake Total 718 1450 Balance 718 1450 Weight 73.5 kg 74.3 kg Results Laboratory Results: 03/25/20 07:53 03/26/20 04:19 03/25/20 03/25/20 03/25/20 07:53 07:53 10:55 Creatine Kinase 129 CK-MB (CK-2) 4.47 Troponin I < 0.012 < 0.012 03/25/20 03/25/20 03/26/20 16:15 22:05 04:19 Creatine Kinase CK-MB (CK-2) Troponin I < 0.012 < 0.012 < 0.012 Impressions: Chest X-Ray 03/25/20 00:00 IMPRESSION: NO ACUTE RADIOGRAPHIC FINDING IN THE CHEST. 03/25/20 07:53 03/26/20 04:19 MCV 91 fl (80-97) 03/25/20 07:53 MCH 31.4 pg (27.0-33.4) 03/25/20 07:53 MCHC 34.4 g/dL (32.0-36.0) 03/25/20 07:53 RDW 12.9 % (11.5-14.0) 03/25/20 07:53 Seg Neutrophils % 67.7 % (42-78) 03/25/20 07:53 Chloride 104 mmol/L (98-107) 03/26/20 04:19 Carbon Dioxide 22 mmol/L (22-30) 03/26/20 04:19 Anion Gap 9 (5-19) 03/26/20 04:19 Est GFR ( Amer) > 60 (>60) 03/26/20 04:19 Glucose 150 mg/dL (75-110) H 03/26/20 04:19 Calcium 9.1 mg/dL (8.4-10.2) 03/26/20 04:19 Magnesium 2.1 mg/dL (1.6-2.3) 03/26/20 04:19 Total Bilirubin 0.7 mg/dL (0.2-1.3) 03/25/20 07:53 AST 28 U/L (17-59) 03/25/20 07:53 Alkaline Phosphatase 53 U/L (38-126) 03/25/20 07:53 Total Protein 7.1 g/dL (6.3-8.2) 03/25/20 07:53 Albumin 4.2 g/dL (3.5-5.0) 03/25/20 07:53 Urine Color YELLOW 03/25/20 09:58 Urine Appearance CLEAR 03/25/20 09:58 Urine pH 5.0 (5.0-9.0) 03/25/20 09:58 Ur Specific [place] 1.024 03/25/20 09:58 Urine Protein NEGATIVE mg/dL (NEGATIVE) 03/25/20 09:58 Urine Glucose (UA) >=500 mg/dL (NEGATIVE) H 03/25/20 09:58 Urine Ketones NEGATIVE mg/dL (NEGATIVE) 03/25/20 09:58 Urine Blood NEGATIVE (NEGATIVE) 03/25/20 09:58 Urine RBC (Auto) 0 /HPF 03/25/20 09:58 03/25/20 03/25/20 03/25/20 07:53 07:53 10:55 Creatine Kinase 129 CK-MB (CK-2) 4.47 Troponin I < 0.012 < 0.012 03/25/20 03/25/20 03/26/20 16:15 22:05 04:19 Creatine Kinase CK-MB (CK-2) Troponin I < 0.012 < 0.012 < 0.012 Current Medication List Generic Name Dose Route Start Last Admin Trade Name Freq PRN Reason Stop Dose Admin Acetaminophen 650 mg 03/25/20 14:55 03/26/20 18:48 Tylenol 325 Mg Tablet PO 04/24/20 14:54 650 mg Q4HP PRN Administration FOR HEADACHE OR PAIN Aspirin 81 mg 03/26/20 10:00 03/27/20 10:28 Ecotrin 81 Mg Ec Tablet PO 04/25/20 09:59 81 mg DAILY RUFINA Administration Atorvastatin Calcium 40 mg 03/25/20 22:00 03/26/20 22:41 Lipitor 40 Mg Tablet PO 04/24/20 21:59 40 mg QHS RUFINA Administration Dextrose 12.5 gm 03/25/20 17:42 Dextrose Inj 50% Syringe (25 Gm/50 Ml) IV 04/24/20 17:41 PRN PRN FOR BG 50-69 IN ALERT PATIENT Protocol Dextrose 25 gm 03/25/20 17:42 Dextrose Inj 50% Syringe (25 Gm/50 Ml) IV 04/24/20 17:41 PRN PRN PER PROTOCOL Protocol Fenofibrate 145 mg 03/26/20 10:00 03/27/20 10:28 Tricor 145 Mg Tablet PO 04/25/20 09:59 145 mg DAILY RUFINA Administration Glucagon 1 mg 03/25/20 17:42 Glucagen Inj 1 Mg Vial IM 04/24/20 17:41 PRN PRN Evaluate for BG < 70 Protocol Glucose 15 gm 03/25/20 17:42 Glutose 40% Gel 15 Gm Tube PO 04/24/20 17:41 PRN PRN FOR BG 50-69 IN ALERT PATIENT Protocol Glucose 30 gm 03/25/20 17:42 Glutose 40% Gel 15 Gm Tube PO 04/24/20 17:41 PRN PRN FOR BG < 50 IN ALERT PATIENT Protocol Heparin Sodium (Porcine) 5,000 unit 03/25/20 22:00 03/27/20 05:59 Heparin Inj 5,000 Units/Ml 1 Ml Vial SUBCUT 04/24/20 21:59 Not Given Q8 RUFINA Sodium Chloride 1,000 mls @ 75 mls/hr 03/25/20 17:40 03/26/20 08:51 Nacl 0.9% 1000 Ml Iv Soln IV 04/24/20 17:39 Infused CONTINUOUS PRN Infusion THIS MED IS NOT "PRN" Insulin Glargine 60 unit 03/25/20 22:00 03/26/20 22:42 Lantus Insulin 100 Unit/1 Ml 10 Ml SUBCUT 04/24/20 21:59 60 unit QHS RUFINA Administration Insulin Human Lispro 0 - 12 unit 03/25/20 22:00 03/27/20 10:21 Humalog Insulin 100 Unit/1 Ml 3 Ml Vial SUBCUT 04/24/20 21:59 Not Given ACHS [facility] Protocol Insulin Human Lispro 10 unit 03/25/20 18:30 03/25/20 18:43 Humalog Insulin 100 Unit/1 Ml 3 Ml Vial SUBCUT 04/24/20 18:29 Not Given AC RUFINA Lisinopril 10 mg 03/26/20 10:00 03/27/20 10:28 Prinivil 10 Mg Tablet PO 04/25/20 09:59 10 mg DAILY RUFINA Administration Metoprolol Succinate 50 mg 03/26/20 10:00 03/27/20 10:29 Toprol Xl 50 Mg Tab.Sr PO 04/25/20 09:59 50 mg DAILY RUFINA Administration Pantoprazole Sodium 40 mg 03/26/20 06:00 03/27/20 06:[address] Tablet PO 04/25/20 05:59 Not Given Q6AM RUFINA Tamsulosin HCl 0.4 mg 03/26/20 10:00 03/27/20 10:29 Flomax 0.4 Mg Cap.Sr PO 04/25/20 09:59 0.4 mg DAILY RUFINA Administration Discontinued Medications Generic Name Dose Route Start Last Admin Trade Name Elda PRN Reason Stop Dose Admin Aspirin 324 mg 03/25/20 10:50 03/25/20 11:07 Aspirin 81 Mg Chewable Tablet PO 03/25/20 10:51 324 mg NOW ONE Administration Insulin Glargine Confirm 03/26/20 22:37 03/26/20 22:45 Lantus (Pyxis) Insulin 100 Unit/1 Ml 10 Ml Administered 03/26/20 22:38 Not Given Dose [address] Assessment & Plan - Diagnosis (1) Chest pain Qualifiers: Ischemic chest pain type: unstable angina pectoris Is this a current diagnosis for this admission?: Yes Plan: No more recurrences while hospitalized. He ruled out for ACS with negative troponins x5. No evidence of cardiac ischemia or infarct on today's Lexiscan nuclear stress test. Recommendations: -The patient may be discharged home from the cardiovascular standpoint. -The patient will follow-up with Dr. Patel. (2) Dyslipidemia Is this a current diagnosis for this admission?: Yes Plan: The patient will follow-up with his primary care provider.
[2020-03-27 13:23] VITALS: BP 130/70
--- NOTE | 2020-03-30 09:05 | PDOC DISCHARGE SUMMARY ---
Impression - Admit/DC Date/PCP Admission Date/Primary Care Provider: 03/25/20 15:03 CHAU PULIDO MD Discharge Date: 03/27/20 - Additional Information Discharge Diet: Cardiac, Diabetic Discharge Activity: Activity As Tolerated, Balance Activity w/Rest, Slowly Increase Activity Referrals: CHAU PULIDO MD [Primary Care Provider] - 04/02/20 10:30 am Prescriptions: Metoprolol Succinate [Toprol Xl 50 mg Tab.sr] 50 mg PO DAILY #30 tab.sr.24h Home Medications: Aspirin [Ecotrin 81 mg EC Tablet] 81 mg PO DAILY 12/06/17 Atorvastatin Calcium [Lipitor 40 mg Tablet] 40 mg PO QHS 12/06/17 Insulin Aspart [Novolog Flexpen] 10 units SQ TID 12/06/17 Insulin Glargine,Hum.rec.anlog [Lantus Solostar] 60 unit SQ QHS 12/06/17 Lisinopril [Prinivil 10 mg Tablet] 10 mg PO DAILY 12/06/17 Tamsulosin HCl [Flomax 0.4 mg Cap.sr] 0.4 mg PO DAILY 05/05/19 Fenofibrate Nanocrystallized [Tricor] 145 mg PO DAILY 06/07/19 Empagliflozin [Jardiance] 10 mg PO DAILY 03/25/20 Icosapent Ethyl [Vascepa] 2 gm PO BID 03/25/20 Metoprolol Succinate [Toprol Xl 50 mg Tab.sr] 50 mg PO DAILY #30 tab.sr.24h 03/27/20 History of Present Illiness History of Present Illness: Per H&P by Elizabeth Koehler: CHAU ANDERSON is a 75 year old male with PMH significant for CAD, HTN, dyslipidemia, DM II, BPH, and GERD who presented to the ED with complaints of chest pain. According to the patient he has been having intermittent chest pain for approximately 2 weeks time. This morning he awoke and again had chest pain and decided that it was time for him to have this "checked out". Of note, the patient reports that he has had 7 cardiac catheterizations in the past. The ED an EKG was completed which did not reveal acute ST/T wave changes consistent with myocardial infarction. A troponin was also assessed which was negative x2. Dr. Menon of cardiology was consulted in the ED and he requested that the patient be admitted for observation, have an echocardiogram, and he will schedule him for a stress test tomorrow. The hospitalist service was consulted to admit the patient for further evaluation and treatment. Hospital Course Hospital Course: Patient was admitted to medical floor on continuous cardiac telemetry. He had no abnormal rhythms noted by telemetry. No further episodes of chest pain. CBC and chemistry were unremarkable. Hemoglobin A1c elevated to 9.6%. Serial troponins negative x5. Chest x-ray benign. Echocardiogram revealed normal left ventricular systolic function with an LVEF of 60 to 65% and grade 1 left ventricular diastolic dysfunction with mild MR, trace TR. Cardiology services were consulted for stress testing. Stress test was normal; no evidence of ischemia or infarct. Patient is cleared for discharge to home; recommend follow-up with Dr. Patel. Patient is discharged home in stable condition. Physical Exam Vital Signs: Temp Pulse Resp BP Pulse Ox 97.3 F 84 18 130/70 H 98 03/27/20 14:07 03/27/20 14:07 03/27/20 14:07 03/27/20 14:07 03/27/20 14:07 General appearance: PRESENT: no acute distress, well-developed, well-nourished Head exam: PRESENT: atraumatic, normocephalic Eye exam: PRESENT: conjunctiva pink, EOMI, PERRLA. ABSENT: scleral icterus Mouth exam: PRESENT: moist, tongue midline Neck exam: ABSENT: carotid bruit, JVD, lymphadenopathy, thyromegaly Respiratory exam: PRESENT: clear to auscultation noelle, symmetrical, unlabored. ABSENT: rales, rhonchi, wheezes Cardiovascular exam: PRESENT: RRR, +S1, +S2. ABSENT: diastolic murmur, rubs, systolic murmur Vascular exam: PRESENT: normal capillary refill Extremities exam: PRESENT: full ROM. ABSENT: calf tenderness, clubbing, pedal edema Musculoskeletal exam: PRESENT: ambulatory Neurological exam: PRESENT: alert, awake, oriented to person, oriented to place, oriented to time, oriented to situation, CN II-XII grossly intact. ABSENT: motor sensory deficit Psychiatric exam: PRESENT: appropriate affect, normal mood. ABSENT: homicidal ideation, suicidal ideation Skin exam: PRESENT: dry, intact, warm. ABSENT: cyanosis, rash Results Laboratory Results: WBC 9.5 10^3/uL (4.0-10.5) 08/24/20 07:53 RBC 4.82 10^6/uL (4.35-5.55) 03/25/20 07:53 Hgb 15.1 g/dL (13.5-17.0) 03/25/20 07:53 Hct 44.0 % (37.9-51.0) 03/25/20 07:53 MCV 91 fl (80-97) 03/25/20 07:53 MCH 31.4 pg (27.0-33.4) 03/25/20 07:53 MCHC 34.4 g/dL (32.0-36.0) 03/25/20 07:53 RDW 12.9 % (11.5-14.0) 03/25/20 07:53 Plt Count 223 10^3/uL (150-450) 03/25/20 07:53 Lymph % (Auto) 21.9 % (13-45) 03/25/20 07:53 [place] % (Auto) 6.9 % (3-13) 03/25/20 07:53 Eos % (Auto) 2.9 % (0-6) 03/25/20 07:53 Baso % (Auto) 0.6 % (0-2) 03/25/20 07:53 Absolute Neuts (auto) 6.4 10^3/uL (1.7-8.2) 03/25/20 07:53 Absolute Lymphs (auto) 2.1 10^3/uL (0.5-4.7) 03/25/20 07:53 Absolute Monos (auto) 0.7 10^3/uL (0.1-1.4) 03/25/20 07:53 Absolute Eos (auto) 0.3 10^3/uL (0.0-0.6) 03/25/20 07:53 Absolute Basos (auto) 0.1 10^3/uL (0.0-0.2) 03/25/20 07:53 Seg Neutrophils % 67.7 % (42-78) 03/25/20 07:53 Sodium 135.1 mmol/L (137-145) L 03/26/20 04:19 Potassium 4.9 mmol/L (3.6-5.0) 03/26/20 04:19 Chloride 104 mmol/L (98-107) 03/26/20 04:19 Carbon Dioxide 22 mmol/L (22-30) 03/26/20 04:19 Anion Gap 9 (5-19) 03/26/20 04:19 BUN 25 mg/dL (7-20) H 03/26/20 04:19 Creatinine 1.22 mg/dL (0.52-1.25) 03/26/20 04:19 Est GFR ( Amer) > 60 (>60) 03/26/20 04:19 Est GFR (MDRD) Non-Af 58 (>60) L 03/26/20 04:19 Glucose 150 mg/dL (75-110) H 03/26/20 04:19 POC Glucose 157 mg/dL (70-110) H 03/27/20 11:59 Hemoglobin A1c % 9.6 % (4.7-6.0) H 03/26/20 04:19 Calcium 9.1 mg/dL (8.4-10.2) 03/26/20 04:19 Magnesium 2.1 mg/dL (1.6-2.3) 03/26/20 04:19 Total Bilirubin 0.7 mg/dL (0.2-1.3) 03/25/20 07:53 Direct Bilirubin 0.3 mg/dL (0.0-0.4) 03/25/20 07:53 Neonat Total Bilirubin Not Reportable 03/25/20 07:53 Neonat Direct Bilirubin Not Reportable 03/25/20 07:53 Neonat Indirect Bili Not Reportable 03/25/20 07:53 AST 28 U/L (17-59) 03/25/20 07:53 ALT 23 U/L (<50) 03/25/20 07:53 Alkaline Phosphatase 53 U/L (38-126) 03/25/20 07:53 Creatine Kinase 129 U/L (55-170) 03/25/20 07:53 CK-MB (CK-2) 4.47 ng/mL (<4.55) 03/25/20 07:53 Troponin I < 0.012 ng/mL 03/26/20 04:19 Total Protein 7.1 g/dL (6.3-8.2) 03/25/20 07:53 Albumin 4.2 g/dL (3.5-5.0) 03/25/20 07:53 Urine Color YELLOW 03/25/20 09:58 Urine Appearance CLEAR 03/25/20 09:58 Urine pH 5.0 (5.0-9.0) 03/25/20 09:58 Ur Specific [place] 1.024 03/25/20 09:58 Urine Protein NEGATIVE mg/dL (NEGATIVE) 03/25/20 09:58 Urine Glucose (UA) >=500 mg/dL (NEGATIVE) H 03/25/20 09:58 Urine Ketones NEGATIVE mg/dL (NEGATIVE) 03/25/20 09:58 Urine Blood NEGATIVE (NEGATIVE) 03/25/20 09:58 Urine Nitrite (Reflex) NEGATIVE (NEGATIVE) 03/25/20 09:58 Urine Bilirubin NEGATIVE (NEGATIVE) 03/25/20 09:58 Urine Urobilinogen NEGATIVE mg/dL (<2.0) 03/25/20 09:58 Leukocyte Esterase Rfl NEGATIVE (NEGATIVE) 03/25/20 09:58 Urine RBC (Auto) 0 /HPF 03/25/20 09:58 Urine WBC (Reflex) 1 /HPF 03/25/20 09:58 Urine Mucus (Auto) RARE /LPF 03/25/20 09:58 Urine Ascorbic Acid NEGATIVE (NEGATIVE) 03/25/20 09:58 03/25/20 03/25/20 03/25/20 07:53 10:55 16:15 CK-MB (CK-2) 4.47 Troponin I < 0.012 < 0.012 < 0.012 03/25/20 03/26/20 22:05 04:19 CK-MB (CK-2) Troponin I < 0.012 < 0.012 Impressions: Chest X-Ray 03/25/20 00:00 IMPRESSION: NO ACUTE RADIOGRAPHIC FINDING IN THE CHEST. Plan Plan of Treatment: Patient is discharged home in stable condition. Follow-up with primary care provider within 1 week. Follow up with Dr. Patel at earliest available appointment. Take medication as prescribed. Eat a heart healthy diet. Do NOT smoke. Return to emergency department as needed for concerning symptoms. Time Spent: Greater than 30 Minutes Stroke Is this a Stroke Patient?: No Acute Heart Failure - Is this a Heart Failure Patient?: No
== END 2020-03-27 14:36 | disposition home or self-care (01) ==
LOC: ER 07:26 → EH 15:03 → 5 16:26
PROVIDERS: ADMIT Hospitalist; ATTEND Registered Nurse
DX: R07.89 Other chest pain (principal); R00.8 Other abnormalities of heart beat; E78.5 Hyperlipidemia, unspecified; I10 Essential (primary) hypertension; E11.9 Type 2 diabetes mellitus without complications; N40.0 Benign prostatic hyperplasia without lower urinary tract symptoms; I08.1 Rheumatic disorders of both mitral and tricuspid valves; I25.110 Atherosclerotic heart disease of native coronary artery with unstable angina pectoris; K21.9 Gastro-esophageal reflux disease without esophagitis; I44.0 Atrioventricular block, first degree; M13.88 Other specified arthritis, other site; Z79.4 Long term (current) use of insulin; Z79.899 Other long term (current) drug therapy; Z79.82 Long term (current) use of aspirin; Z95.5 Presence of coronary angioplasty implant and graft; Z79.02 Long term (current) use of antithrombotics/antiplatelets
CPT/HCPCS: 93005 ×3; 99285; 36415 ×2; 82553; 82962 ×3; 82550; 83735; 85025; 80048; 80053; 81001; 84484 ×2; 83036; 93306; 93017; 71045; 78452; 93010 ×2; G0378 ×4; A9500; J2785; A9270 ×19; J1644 ×2; J7030; Q9969; J1815; J3490

== ENCOUNTER → 2020-05-10 | Outpatient (CLI) | payer MEDICARE, OTHER ==
[2020-05-10 08:19] LABS: ABSOLUTE EOSINOPHILS # (AUTO) 0.3 10^3/uL (0.0-0.6); ABSOLUTE LYMPHOCYTES (AUTO) 2.5 10^3/uL (0.5-4.7); ABSOLUTE MONOCYTES (AUTO) 0.6 10^3/uL (0.1-1.4); ABSOLUTE NEUT (AUTO) 4.8 10^3/uL (1.7-8.2); BASOPHILS % (AUTO) 0.5 % (0-2); EOSINOPHILS % (AUTO) 3.7 % (0-6); HEMATOCRIT 46.9 % (37.9-51.0); HEMOGLOBIN 16.3 g/dL (13.5-17.0); MEAN CORPUSCULAR HEMOGLOBIN 31.3 pg (27.0-33.4); MEAN CORPUSCULAR HGB CONC 34.7 g/dL (32.0-36.0); MEAN CORPUSCULAR VOLUME 90 fl (80-97); PLATELET COUNT 247 10^3/uL (150-450); RED CELL DISTRIBUTION WIDTH 12.9 % (11.5-14.0); SEGMENTED NEUTROPHILS % (AUTO) 58.8 % (42-78); TOTAL CELLS COUNTED % (AUTO) 100 %; WHITE BLOOD COUNT 8.2 10^3/uL (4.0-10.5)
[2020-05-10 08:37] LABS: ALBUMIN 4.4 g/dL (3.5-5.0); ALKALINE PHOSPHATASE 61 U/L (38-126); ANION GAP 14 (5-19); ASPARTATE AMINO TRANSFERASE 38 U/L (17-59); BILIRUBIN,DIRECT 0.3 mg/dL (0.0-0.4); BILIRUBIN,TOTAL 0.7 mg/dL (0.2-1.3); BLOOD UREA NITROGEN 14 mg/dL (7-20); CALCIUM 9.2 mg/dL (8.4-10.2); CARBON DIOXIDE 23 mmol/L (22-30); CHLORIDE 104 mmol/L (98-107); GLUCOSE 164 mg/dL (75-110); POTASSIUM 4.8 mmol/L (3.6-5.0); TOTAL PROTEIN 7.3 g/dL (6.3-8.2)
== END ==
LOC: OD 07:16
PROVIDERS: ATTEND Internal Medicine
DX: E11.9 Type 2 diabetes mellitus without complications (principal); I10 Essential (primary) hypertension; I25.10 Atherosclerotic heart disease of native coronary artery without angina pectoris; E78.5 Hyperlipidemia, unspecified
CPT/HCPCS: 36415; 80053; 83036; 85025

== ENCOUNTER → 2020-07-05 | Outpatient (CLI) | payer MEDICARE, OTHER ==
[2020-07-05 09:16] LABS: ALBUMIN 4.5 g/dL (3.5-5.0); ALKALINE PHOSPHATASE 72 U/L (38-126); ANION GAP 11 (5-19); ASPARTATE AMINO TRANSFERASE 34 U/L (17-59); BILIRUBIN,DIRECT 0.2 mg/dL (0.0-0.4); BILIRUBIN,TOTAL 0.7 mg/dL (0.2-1.3); BLOOD UREA NITROGEN 18 mg/dL (7-20); CALCIUM 9.7 mg/dL (8.4-10.2); CARBON DIOXIDE 21 mmol/L (22-30); CHLORIDE 104 mmol/L (98-107); CHOLESTEROL 228.03 mg/dL (0-200); GLUCOSE 265 mg/dL (75-110); POTASSIUM 4.9 mmol/L (3.6-5.0); TOTAL PROTEIN 7.1 g/dL (6.3-8.2); TRIGLYCERIDES 485 mg/dL (<150)
[2020-07-05 09:28] LABS: DIRECT LDL 90 mg/dL (<100)
== END ==
LOC: OD 07:32
PROVIDERS: ATTEND Internal Medicine
DX: E11.9 Type 2 diabetes mellitus without complications (principal); I10 Essential (primary) hypertension; E78.5 Hyperlipidemia, unspecified
CPT/HCPCS: 36415; 80053; 80061; 83036

== ENCOUNTER 2020-07-09 08:28 | Emergency (ER) | payer OTHER, MEDICARE ==
[2020-07-09] MEDS ORDERED: NORMAL SALINE 1000 ML 1,000 ML IV ONE (09:27)
[2020-07-09] MEDS ORDERED: MORPHINE SULFATE 10 MG/ML INJ IV ONE (09:28)
[2020-07-09] MEDS ORDERED: ONDANSETRON ODT 4 MG TAB (6 TAB/ER DISP) PO PRN (09:28)
[2020-07-09] MEDS ORDERED: ONDANSETRON 4 MG TAB.RAPDIS PO ONE (09:51)
[2020-07-09 09:58] LABS: ABSOLUTE EOSINOPHILS # (AUTO) 0.1 10^3/uL (0.0-0.6); ABSOLUTE LYMPHOCYTES (AUTO) 1.4 10^3/uL (0.5-4.7); ABSOLUTE MONOCYTES (AUTO) 0.5 10^3/uL (0.1-1.4); ABSOLUTE NEUT (AUTO) 7.5 10^3/uL (1.7-8.2); BASOPHILS % (AUTO) 0.4 % (0-2); EOSINOPHILS % (AUTO) 0.7 % (0-6); HEMOGLOBIN 15.7 g/dL (13.5-17.0); LYMPHOCYTES % (AUTO) 14.9 % (13-45); MEAN CORPUSCULAR HGB CONC 34.8 g/dL (32.0-36.0); MEAN CORPUSCULAR VOLUME 89 fl (80-97); MONOCYTES % (AUTO) 4.9 % (3-13); PLATELET COUNT 261 10^3/uL (150-450); RED BLOOD COUNT 5.06 10^6/uL (4.35-5.55); RED CELL DISTRIBUTION WIDTH 13.1 % (11.5-14.0); SEGMENTED NEUTROPHILS % (AUTO) 79.1 % (42-78); TOTAL CELLS COUNTED % (AUTO) 100 %; WHITE BLOOD COUNT 9.5 10^3/uL (4.0-10.5)
[2020-07-09 10:15] LABS: APPEARANCE,URINE CLEAR; BILIRUBIN,URINE NEGATIVE (NEGATIVE); COLOR,URINE STRAW; GLUCOSE, URINE >=500 mg/dL (NEGATIVE); KETONES,URINE TRACE mg/dL (NEGATIVE); PROTEIN,URINE NEGATIVE (NEGATIVE); URINE SPECIFIC GRAVITY 1.032; UROBILINOGEN,URINE NEGATIVE mg/dL (<2.0)
[2020-07-09 10:27] LABS: ALBUMIN 4.6 g/dL (3.5-5.0); ALKALINE PHOSPHATASE 67 U/L (38-126); ANION GAP 13 (5-19); ASPARTATE AMINO TRANSFERASE 34 U/L (17-59); BILIRUBIN,DIRECT 0.2 mg/dL (0.0-0.4); BILIRUBIN,TOTAL 0.8 mg/dL (0.2-1.3); BLOOD UREA NITROGEN 20 mg/dL (7-20); CALCIUM 9.8 mg/dL (8.4-10.2); CARBON DIOXIDE 23 mmol/L (22-30); CHLORIDE 100 mmol/L (98-107); GLUCOSE 283 mg/dL (75-110); POTASSIUM 4.6 mmol/L (3.6-5.0); TOTAL PROTEIN 7.3 g/dL (6.3-8.2)
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
[2020-07-09 12:45] VITALS: BP 131/82
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
== END 2020-07-09 12:45 | disposition home or self-care (01) ==
LOC: ER 08:28
DX: S16.1XXA Strain of muscle, fascia and tendon at neck level, initial encounter (principal); S39.012A Strain of muscle, fascia and tendon of lower back, initial encounter; R10.84 Generalized abdominal pain; M54.2 Cervicalgia; R42 Dizziness and giddiness; M54.6 Pain in thoracic spine; V89.2XXA Person injured in unspecified motor-vehicle accident, traffic, initial encounter; I10 Essential (primary) hypertension; Z79.899 Other long term (current) drug therapy; E11.9 Type 2 diabetes mellitus without complications
CPT/HCPCS: 99285; 96361; 96374; 36415; 85025; 80053; 81001; 71275; 72125; 74174; S0119; J2270; J7030